=== PATIENT | male | born 1985 | race African-American/Black ===

== ENCOUNTER 2020-08-02 20:11 | Emergency (ER) | payer MEDICAID, SELFPAY ==
[2020-08-02 20:12] VITALS: BP 149/100; PULSE 90; RESP 18; TEMP 36.2; O2SAT 99; BMI 38.0
--- NOTE | 2020-08-02 20:43 | EKG12_ITS ---
Test Reason : CP Blood Pressure : / mmHG Vent. Rate : 071 BPM Atrial Rate : 071 BPM P-R Int : 146 ms QRS Dur : 092 ms QT Int : 382 ms P-R-T Axes : 050 038 037 degrees QTc Int : 415 ms Normal sinus rhythm with sinus arrhythmia Normal ECG Confirmed by KWAME CHONG, NATHANAEL ([id number]), social media editor CHEYENNE REYES ([id number]) on 08/05/2020 10:58:56 AM Referred By: CALE Confirmed By:NATHANAEL PUENTE MD
--- NOTE | 2020-08-02 20:44 | ED.DCSUM_ITS ---
History of Present Illness Chief Complaint: Chest Other Detail of Chief Complaint: Chest pain and spasms Informant: Patient Onset: Days - 2 days Timing: Intermittent Current Severity: Mild Maximum Severity: Moderate Narrative: Patient presents with central chest spasms that have been intermittent over the past 2 days. He states tonight it was worse that prompted him to come to the emergency room. He initially thought it was from smoking stating he will feel spasms in his chest when he smoking. He then states it seems to be worse when he drinks. He does have cardiac risk factors including hypertension, high cholesterol, and smoking. He denies previous cardiac work-up. - Past Medical History (1) Hypertension Status: Chronic (2) High cholesterol Status: Chronic Past Medical History - Allergies and Home Meds Allergies/Adverse Reactions: Allergies No Known Allergies Allergy (Verified 08/02/20 20:14) Primary Care Physician: NOT,DEFINED [NON-STAFF] - Smoking Status: Current every day smoker Review of Systems General: Denies: Chills, Fever Eyes: Denies: Visual changes - bilaterally ENT: Denies: Bilateral ear pain Cardiovascular: Reports: Chest pain Respiratory: Denies: Dyspnea, Cough Gastrointestinal: Denies: Abdominal pain Genitourinary: Denies: Dysuria Musculoskeletal: Denies: Swelling, Extremity Pain Skin: Denies: Rash Endocrine: Denies: Polyuria, Polydipsia Hematologic: Denies: Easy bruising Physical Exam Vital Signs/Narrative: Vital Signs Temp Pulse Resp BP Pulse Ox 08/02/20 20:12 97.2 F L 90 18 149/100 H 99 Inital Vital Signs reviewed: Yes General: Well nourished, Well developed Head: Normocephalic ENT: Moist mucous membranes Neck: Supple Cardiovascular: Regular rate, Regular rhythm Respiratory: No distress, CTA bilaterally, Chest nontender Abdomen: Soft, Nontender Skin: Normal color Neurological: Alert, Oriented x3 Psychological: Normal affect Diagnostic/Tx/Re-eval Chest X-Ray - ED: 1 View, Read by ED Physician, Normal, Heart, Lungs, Mediastinum 08/02/20 21:15 Chest 1 View (Portable) [RAD] Stat Laboratory Results 08/02/20 08/02/20 21:02 21:02 WBC 7.3 RBC 4.92 Hgb 14.8 Hct 44.8 MCV 91.1 MCH 30.1 MCHC 33.0 RDW Std Deviation 42.2 RDW Coeff of Cindy 12.6 Plt Count 203 MPV 11.6 Immature Gran % (Auto) 0.100 Neut % (Auto) 44.7 L Lymph % (Auto) 44.7 H [place] % (Auto) 8.2 Eos % (Auto) 1.8 Baso % (Auto) 0.5 Absolute Neuts (auto) 3.3 Absolute Lymphs (auto) 3.26 Nucleated RBC % 0 Sodium 139 Potassium 4.1 Chloride 105 Carbon Dioxide 30.0 Anion Gap 4 L BUN 14 Creatinine 1.40 H Estim Creat Clear Calc 86.44 Est GFR (MDRD) Af Amer 74 Est GFR (MDRD) Non-Af 61 BUN/Creatinine Ratio 10.0 Glucose 114 H Calcium 9.4 Troponin I < 0.015 - EKG Initial EKG Interpretation: Sinus Rhythm - Sinus at 71 with no acute ischemia. - Medical Decision Making Patient does report some increased burping. He states he has pain when he swallows and feels spasms in the center of his chest. I am concerned he is having reflux with esophageal spasm. He be placed on an antacid and referred to local PCP for follow-up. He is given return instructions. ED Disposition - Plan for ED Patient: Disposition: Home or Assisted Living Diagnosis: Atypical chest pain, GERD (gastroesophageal reflux disease) Instructions: ED Chest Pain Atypical Unkn Cause, Gastroesophageal Reflux Disease (GERD) Prescriptions: Omeprazole [Prilosec] 20 mg PO DAILY #30 cap Transmission Status: Pending to [facility] #[id number] Referrals: Delaney Mercer MD [STAFF PHYSICIAN] - 1-2 Weeks
[2020-08-02] MEDS: Aspirin 81 MG TAB.CHEW 324 MG PO (20:52)
[2020-08-02 21:11] LABS: Absolute Lymphocyte Count 3.26 X10^3/uL (0.83-4.51); Absolute Neutrophil Count 3.3 X10^3/uL (2.0-7.7); Basophil# 0.04 X10^3/uL; Basophil% 0.5 % (0-1); Eosinophil# 0.13 X10^3/uL; Eosinophils% 1.8 % (0-5); Hematocrit 44.8 % (40-54); Hemoglobin 14.8 g/dL (13.0-16.5); Lymphocyte # 3.26 X10^3/ul (4.0); Lymphocyte % 44.7 % (19-41); Mean Corpuscular Hgb 30.1 pg (27.0-32.0); Mean Corpuscular Volume 91.1 fL (80-94); Mean Platelet Vol. 11.6 fl (6.2-12.0); Monocyte% 8.2 % (0-10); NRBC Flagged by Analyzer 0 % (0-5); Neutrophil # 3.26 X10^3/uL (2.7-7.7); Neutrophil % 44.7 % (47-70); Platelet Count 203 K/mm3 (150-450); RBC Distribution Width CV 12.6 % (11.6-14.6); RBC Distribution Width SD 42.2 fl (35.1-43.9); Red Blood Count 4.92 M/mm3 (4.6-6.2); White Blood Count 7.3 K/mm3 (4.4-11.0)
--- NOTE | 2020-08-02 21:15 | RAD_ITS ---
STUDY: X-RAY CHEST REASON FOR EXAM: Male, 34 years old. chest pain while eating. pt states possible esophageal pain. TECHNIQUE: AP COMPARISON: None. FINDINGS: EKG leads project over the chest. The lungs are clear and expanded. There is no demonstrated pleural abnormality. Normal size heart. Normal mediastinum and devonte. Normal visualized pulmonary arteries. Normal visualized aortic arch and descending thoracic aorta. Normal visualized thoracic spine. Normal visualized ribs, clavicles, and shoulders. There is no demonstrated abnormality of the visualized soft tissue structures of the upper abdomen. RAD/Chest 1 View (Portable) IMPRESSION: Nonacute portable x-ray examination of the chest. Electronically Signed: Lavon Escobar MD ([place]oks) at 21:48 EST , Service support ,
[2020-08-02 21:35] LABS: Anion Gap 4 (5-15); BUN 14 mg/dL (7-18); Calcium,Total 9.4 mg/dL (8.5-10.1); Chloride 105 mmol/L (98-107); EST Glomerular Filtration Rate 61 mL/min (>60); Est Glom Filt Rate - Afr Amer 74 mL/min (>60); Estimated Creatinine Clearance 86.44 ml/min; Glucose 114 mg/dL (74-106); Potassium 4.1 mmol/L (3.5-5.1); Sodium Level 139 mmol/L (136-145)
[2020-08-02] MEDS: Pantoprazole Sodium 40 MG Tablet PO (22:04)
[2020-08-02 22:08] VITALS: BP 138/81; PULSE 81; RESP 16; O2SAT 96
== END 2020-08-02 22:09 | disposition home or self-care (01) ==
PROVIDERS: Emergency Provider Emergency Medicine
DX: R07.89 Other chest pain (principal); K21.9 Gastro-esophageal reflux disease without esophagitis; I10 Essential (primary) hypertension; E78.00 Pure hypercholesterolemia, unspecified; F17.200 Nicotine dependence, unspecified, uncomplicated
CPT/HCPCS: 71045; 80048; 84484; 85025; 93005; 99284; A4216

== ENCOUNTER 2021-02-26 18:40 | Emergency (ER) | payer MEDICAID, SELFPAY ==
[2021-02-26] VITALS (8 sets, daily range): BP systolic 118–148; BP diastolic 68–87; PULSE 76–92; RESP 13–23; TEMP 37.1–38.6; O2SAT 95–100; BMI 37.2
--- NOTE | 2021-02-26 19:49 | EKG12_ITS ---
Test Reason : WEAKNESS Blood Pressure : / mmHG Vent. Rate : 076 BPM Atrial Rate : 076 BPM P-R Int : 140 ms QRS Dur : 090 ms QT Int : 344 ms P-R-T Axes : 068 044 044 degrees QTc Int : 387 ms Normal sinus rhythm with sinus arrhythmia Normal ECG Confirmed by KWAME CHONG, NATHANAEL ([id number]), society editor CHEYENNE REYES ([id number]) on 02/27/2021 11:24:51 AM Referred By: VERONICA Confirmed By:NATHANAEL PUENTE MD
--- NOTE | 2021-02-26 19:51 | EX.ED.GUMALE ---
HPI History of Present Illness Chief Complaint: Male Pain/Injury Informant: patient Pain Onset: Days Context: Gradual Onset Timing: Continuous Current Severity: Mild Maximum Severity: Mild Related History Sexually: Active Unprotected Sex: Yes STD: Yes Bladder/Kidney Infection: Yes Enlarged Prostate: No Prostate Infection: No Prostate Cancer: No Narrative Narrative: 35-year-old diabetic male said he has been off his medications for a year after he moved from [place]. He has no primary care physician. States he feels generally weak has fever and chills and tired. He denies vomiting. He denies diarrhea. He denies any significant cough. He has not checked his blood sugar for very long period of time. Prior similar symptoms: Yes Recent Illness/Hospitalization: No PFSH PFSH Medical History Asthma Borderline diabetes Rhabdomyolysis UTI symptoms Home Medications albuterol sulfate [Proventil HFA] 1 inh INHALATION Q6H PRN #1 g 02/26/21 [Rx Last Taken Unknown] multivitamin 1 tab PO DAILY 02/26/21 [History Last Taken Unknown] Allergy/AdvReac Type Severity Reaction Status Date / Time No Known Allergies Allergy Verified 02/26/21 18:42 Surgical History Hx of hernia repair Hx of tonsillectomy Social History Smoking Status: Current every day smoker tobacco type: cigars ROS ROS ED ROS Narrative Patient states he has been feeling well. Review of Systems ROS Unobtainable: Denies due to encephalopathy Constitutional Constitutional ED: Reports chills, fever(s) and subjective Eyes Eyes: Denies change in vision ENT ENT ED: Denies ear pain or sore throat Cardiovascular Cardiovascular: Denies chest pain or palpitations Respiratory/Chest Respiratory/Chest: Denies cough or dyspnea Gastrointestinal Gastrointestinal: Denies abdominal pain, diarrhea, nausea or vomiting Genitourinary Genitourinary ED: Reports dysuria Musculoskeletal Musculoskeletal: Reports arthralgias and myalgias Integumentary Denies rash Neurologic Neurologic: Denies headache(s) Psychiatric Psychiatric: Denies depression Endocrine Endocrinology: Denies polyuria Hematologic/Lymphatic Hematologic/Lymphatic: Denies easy bruising Allergic/Immunologic Allergic/Immunologic ED: Denies urticaria EXAM Physical Exam Narrative Exam Narrative: Large male no acute distress he does have a low-grade fever of 100.1. He does not look septic or toxic. H EENT exam unremarkable. Moist with memories. TMs normal. Neck nontender no meningismus. No lymphadenopathy. Lungs clear to auscultation bilaterally. Heart regular rhythm rate about 90 no murmur. Abdomen soft nontender normal bowel sounds no peritoneal signs. exam uncircumcised male. No lesions. No abscesses. No fornier's gangrene. No discharge. Moving all 4 extremities. Calves nontender without edema. No petechiae or purpura. Back nontender. Neurologically is awake alert with no focal motor deficits. He does stand up out of bed to walk about the room. Const Vital Signs: 02/26/21 18:42 02/26/21 19:49 02/26/21 19:59 Temperature 100.1 F H Temperature Source Temporal Pulse Rate 92 90 Respiratory Rate 18 23 H Blood Pressure 148/85 H Blood Pressure Mean 106 Pulse Ox 100 98 100 Oxygen Delivery Method Room Air Room Air Room Air 02/26/21 20:13 02/26/21 21:04 02/26/21 21:05 Temperature 101.4 F H 101.4 F H Temperature Source Oral Oral Pulse Rate 80 90 Respiratory Rate 17 13 Blood Pressure 139/87 H 139/87 H Blood Pressure Mean 104 104 Pulse Ox 100 99 Oxygen Delivery Method Room Air Room Air 02/26/21 22:00 02/26/21 23:00 Temperature 98.9 F 98.8 F Temperature Source Oral Oral Pulse Rate 80 76 Respiratory Rate 16 18 Blood Pressure 125/79 H 118/68 Blood Pressure Mean 94 84 Pulse Ox 95 97 Oxygen Delivery Method Room Air Room Air Positive well nourished and well developed General Appearance ED: well developed HEENT Reports TM's clear and moist mucous membranes normocephalic and atraumatic; Negative for trauma or tenderness Tympanic Membrane ED: Yes TM's clear Eyes PERRL and EOMs intact bilaterally Neck no lymphadenopathy, supple and no JVD General: Negative for tenderness Resp normal respiratory effort and clear to auscultation bilaterally Auscultation: Negative for rales, rhonchi or wheezes Cardio regular rhythm and no murmurs Rate: tachycardic GI non-tender, non-distended and no masses Auscultation: normoactive bowel sounds and hyperactive bowel sounds Palpation: soft Rectal Exam: tenderness no CVA tenderness Narrative: External exam unremarkable. Uncircumcised. Nontender. No mass. No cellulitis. No foreign years gangrene. Bladder / Kidney Exam: No CVA tenderness Groin / Perineum Exam: Negative for edema or lesions Penis: normal penis and uncircumcised Meatus: meatus normal Scrotum: testes descended bilaterally; Negative for tenderness or erythema Testes: testicular lie normal Back/Spine no CVA tenderness General Back: Negative for CVA tenderness Neuro oriented x3, CN's II-XII intact bilaterally and moves all extremities Sensorium / Orientation: alert, oriented to person, oriented to place and oriented to time Psych mental status grossly normal Skin Lesions: no lesions Rashes: no rashes MDM MDM MDM Narrative Medical decision making narrative: 35-year-old diabetic male has not been caring for his diabetes or taking his meds for about a year since he moved to [place] from [place]. States I do not know to be diabetic. Also complaining of chills and body aches with a prior history of UTIs. Will undergo a septic work-up. Receive IV fluids. Patient developed a fever one 1.4 in emergency department. He was treated with Tylenol. Currently he is afebrile. Clinically looks very well at 1145. I did a complete repeat exam I find no sources of infection on the patient. Throat is unremarkable. Lungs are clear. Abdomen soft nontender. I do not find any rashes anywhere cellulitis. Patient will be discharged home outpatient follow-up. He requested I write him for his inhaler. He will follow up with a local primary care physician. Is a be treated with viral syndrome. Return if worse. Lab Data Attestation: I reviewed the patient's lab results. Lab results narrative: CBC shows a mild elevated white count 9.8. Normal hemoglobin 14. No bands. PT/INR PTT normal. UA is contaminated with 5-10 white cells and 5-10 squamous cells but no bacteria no nitrates. Electrolytes are normal. Creatinine is elevated. Glucose is 106. Covid test negative. Lactic acid normal. Labs: Laboratory Results - last 24 hr 02/26/21 02/26/21 02/26/21 19:04 20:10 20:10 WBC 11.8 H RBC 4.90 Hgb 14.7 Hct 45.2 MCV 92.2 MCH 30.0 MCHC 32.5 RDW Std Deviation 45.1 H RDW Coeff of Cindy 13.2 Plt Count 223 MPV 11.2 Immature Gran % (Auto) 0.300 Neut % (Auto) 71.4 H Lymph % (Auto) 17.9 L [place] % (Auto) 9.3 Eos % (Auto) 0.8 Baso % (Auto) 0.3 Absolute Neuts (auto) 8.4 H Absolute Lymphs (auto) 2.11 Nucleated RBC % 0 PT 12.6 INR 1.0 APTT 29.3 Sodium Potassium Chloride Carbon Dioxide Anion Gap BUN Creatinine Estim Creat Clear Calc Est GFR (MDRD) Af Amer Est GFR (MDRD) Non-Af BUN/Creatinine Ratio Glucose Lactic Acid Calcium Total Bilirubin AST ALT Alkaline Phosphatase Total Protein Albumin Globulin Albumin/Globulin Ratio Urine Color Yellow Urine Clarity Clear Urine pH 7.0 Ur Specific [place] 1.010 Urine Protein Negative Urine Glucose (UA) Normal Urine Ketones Negative Urine Occult Blood 10 H Urine Nitrite Negative Urine Bilirubin Negative Urine Urobilinogen 1 H Ur Leukocyte Esterase 25 H Urine RBC 0 SEEN Urine WBC 5-10 SEEN Ur Squamous Epith Cells 5-10 SEEN Urine Bacteria 0 SEEN Urine Mucus 0 SEEN 02/26/21 02/26/21 20:10 20:10 WBC RBC Hgb Hct MCV MCH MCHC RDW Std Deviation RDW Coeff of Cindy Plt Count MPV Immature Gran % (Auto) Neut % (Auto) Lymph % (Auto) [place] % (Auto) Eos % (Auto) Baso % (Auto) Absolute Neuts (auto) Absolute Lymphs (auto) Nucleated RBC % PT INR APTT Sodium 139 Potassium 3.9 Chloride 106 Carbon Dioxide 27.0 Anion Gap 6 BUN 9 Creatinine 1.48 H Estim Creat Clear Calc 81.00 Est GFR (MDRD) Af Amer 69 Est GFR (MDRD) Non-Af 57 L BUN/Creatinine Ratio 6.1 L Glucose 106 Lactic Acid 1.7 Calcium 8.2 L Total Bilirubin 0.70 AST 31 ALT 32 Alkaline Phosphatase 75 Total Protein 7.3 Albumin 3.5 Globulin 3.8 Albumin/Globulin Ratio 0.9 Urine Color Urine Clarity Urine pH Ur Specific [place] Urine Protein Urine Glucose (UA) Urine Ketones Urine Occult Blood Urine Nitrite Urine Bilirubin Urine Urobilinogen Ur Leukocyte Esterase Urine RBC Urine WBC Ur Squamous Epith Cells Urine Bacteria Urine Mucus Radiography Diagnostic Testing: Radiology Impression Chest X-Ray 02/26/21 20:03 IMPRESSION: No acute radiographic abnormalities. Electronically Signed: Martin Marquez MD at 21:06 EDT Tel , Service support , Portable chest x-ray 1 view interpreted by myself shows no acute abnormality. Normal cardiac silhouette mediastinum. No infiltrate. Rhythm Strip Rhythm Strip: Sinus Rhythm Rate: 76 Ectopy: None EKG Initial EKG: Interpretation: Sinus Rhythm and No Acute Injury Pattern Comments: Normal sinus rhythm rate of 76 no acute signs of OH nor ischemia nor dysrhythmia. Unchanged from prior EKG from 2019. Prior: Unchanged Discharge Plan Triage Chief Complaint: Male Pain/Injury Other Complaint: Weakness ED Provider: Roney Shipley Dx/Rx/DC Orders Clinical Impression: Viral infection Instructions: ED Viral Syndrome (Adult) Prescriptions: New albuterol sulfate [Proventil HFA] 90 mcg/actuation HFA aerosol inhaler 1 inh inhalation Q6H PRN (Reason: shortness of breath or wheezing) Qty: 1 RF: 1 No Action multivitamin Tablet 1 tab PO DAILY RF: 0 Primary Care Provider: Care Physician,No Primary Referrals: Tia Rizzo MD [STAFF PHYSICIAN] - As soon as possible Jani Bose MD [STAFF PHYSICIAN] - As soon as possible Care Physician,No Primary [Primary Care Provider] - Activity Restrictions/Additional Instructions: Your fever appears to be from a virus tonight. There are other test still pending if those come back positive we will notify you. Plenty of fluids and rest. Tylenol and Motrin for the fever. Follow-up with one of the local primary care physicians for your diabetes and to be reevaluated. Return if you are feeling worse. Disposition Disposition: Home, self care
[2021-02-26 19:58] LABS: Bacteria 0 SEEN /hpf (None Seen); Mucous, Urine 0 SEEN /hpf (<or=2+); Red Blood Cells-Urine 0 SEEN /hpf (0-5)
--- NOTE | 2021-02-26 20:03 | RAD_ITS ---
INDICATION: fever EXAMINATION/TECHNIQUE: X-RAY - XR Chest 1 View COMPARISON: 08/02/2020. FINDINGS: The lungs are clear. The cardiomediastinal silhouette is unremarkable. No pleural effusion or pneumothorax. No acute osseous abnormalities. RAD/Chest 1 View (Portable) IMPRESSION: No acute radiographic abnormalities. Electronically Signed: Martin Marquez MD at 21:06 EDT Tel , Service support ,
[2021-02-26] MEDS: 0.9% Normal Saline 1,000 ML 999 ML IV (20:06)
[2021-02-26 20:20] LABS: Color, Urine Yellow (Yellow); Glucose, Dipstick Normal (Normal); Ketone-Dipstick Negative (Negative); Leukocyte Esterase-Dipstick 25 /ul (Negative); Nitrite-Dipstick Negative (Negative); Occult Blood-Urine 10 /ul (Negative); Protein-Dipstick Negative (Negative); Urine Bilirubin Dipstick Negative (Negative); Urine Clarity Clear (Clear); Urine Urobilinogen 1 mg/dl (Normal)
[2021-02-26 20:21] LABS: Absolute Lymphocyte Count 2.11 X10^3/uL (0.83-4.51); Absolute Neutrophil Count 8.4 X10^3/uL (2.0-7.7); Basophil# 0.04 X10^3/uL; Basophil% 0.3 % (0-1); Eosinophil# 0.09 X10^3/uL; Eosinophils% 0.8 % (0-5); Hematocrit 45.2 % (40-54); Hemoglobin 14.7 g/dL (13.0-16.5); Lymphocyte # 2.11 X10^3/ul (0.83-4.51); Lymphocyte % 17.9 % (19-41); Mean Corp Hgb Conc 32.5 g/dL (32-36); Mean Corpuscular Volume 92.2 fL (80-94); Mean Platelet Vol. 11.2 fl (6.2-12.0); Monocyte# 1.09 X10^3/uL; Monocyte% 9.3 % (0-10); NRBC Flagged by Analyzer 0 % (0-5); Neutrophil # 8.39 X10^3/uL (2.7-7.7); Neutrophil % 71.4 % (47-70); Platelet Count 223 K/mm3 (150-450); RBC Distribution Width CV 13.2 % (11.6-14.6); RBC Distribution Width SD 45.1 fl (35.1-43.9); White Blood Count 11.8 K/mm3 (4.4-11.0)
[2021-02-26 20:32] LABS: Squamous Epithelial Cells - UA 5-10 SEEN /hpf (0-5); White Blood Cells 5-10 SEEN /hpf (0-5)
[2021-02-26 20:34] LABS: Prothrombin Time (Protime)PT. 12.6 SECONDS (11.7-14.9)
[2021-02-26 20:35] LABS: Partial Thromboplast Time 29.3 Seconds (24.1-36.2)
[2021-02-26 20:40] LABS: ALB/GLOB Ratio 0.9 RATIO (0.9-2.4); AST(SGOT) 31 U/L (15-37); Alanine Aminotransfer ALT/SGPT 32 U/L (16-61); Albumin, Serum 3.5 g/dL (3.2-5.0); Alkaline Phosphatase 75 U/L (45-117); Anion Gap 6 (5-15); BUN 9 mg/dL (7-18); BUN/Creat Ratio 6.1 RATIO (10-20); Calcium,Total 8.2 mg/dL (8.5-10.1); Chloride 106 mmol/L (98-107); Creatinine, Serum 1.48 mg/dL (0.70-1.30); EST Glomerular Filtration Rate 57 mL/min (>60); Est Glom Filt Rate - Afr Amer 69 mL/min (>60); Globulin 3.8 g/dL (2.2-4.2); Glucose 106 mg/dL (74-106); Potassium 3.9 mmol/L (3.5-5.1); Protein, Total 7.3 g/dL (6.4-8.2); Sodium Level 139 mmol/L (136-145)
[2021-02-26] MEDS: Acetaminophen 500 MG Tablet 1000 MG PO (21:02)
[2021-02-26 21:26] LABS: Lactic Acid 1.7 mmol/L (0.4-1.9)
== END 2021-02-27 00:04 | disposition home or self-care (01) ==
PROVIDERS: Emergency Provider Emergency Medicine
DX: B34.9 Viral infection, unspecified (principal); R50.9 Fever, unspecified; R53.1 Weakness; Z20.822 Contact with and (suspected) exposure to COVID-19; R73.03 Prediabetes; J45.909 Unspecified asthma, uncomplicated; F17.290 Nicotine dependence, other tobacco product, uncomplicated; Z79.899 Other long term (current) drug therapy
CPT/HCPCS: 71045; 80053; 81001; 83605; 85025; 85610; 85730; 87040; 87086; 87088; 87426; 93005; 96360; 96361; 99284; J7030; A4216

== ENCOUNTER 2021-04-27 08:44 | Emergency (ER) | payer MEDICAID, SELFPAY ==
[2021-04-27 08:45] VITALS: BP 146/105; PULSE 79; RESP 16; TEMP 36.2; O2SAT 98; BMI 35.9
--- NOTE | 2021-04-27 09:08 | RAD_ITS ---
STUDY: X-RAY CHEST REASON FOR EXAM: Male, 35 years old. Cough TECHNIQUE: PA and lateral views of the chest. COMPARISON: Comparison is made with prior examination dated 02/26/2021. FINDINGS: The lungs are clear and expanded. There is no demonstrated pleural abnormality. Normal size heart. Normal mediastinum and devonte. Normal visualized pulmonary arteries. Normal visualized aortic arch and descending thoracic aorta. Normal visualized thoracic spine. Normal visualized ribs, clavicles, and shoulders. There is no demonstrated abnormality of the visualized soft tissue structures of the upper abdomen. RAD/Chest PA and Lateral IMPRESSION: Normal x-ray examination of the chest. Electronically Signed: Satish Goins MD at 9:41 EDT , Service support ,
--- NOTE | 2021-04-27 09:26 | EX.ED.VIS.UR ---
HPI HPI - URI History of Present Illness Chief Complaint: Cough Informant: patient Onset/Context/Timing Onset: Weeks Context: Gradual Onset Timing: Continuous Current Severity: Mild Maximum Severity: Mild Associated Symptoms Associated Symptoms: Positive for Nonproductive cough; Negative for Nausea, Vomiting, Hemoptysis and Productive Cough Narrative Narrative: 35-year-old male states at least 2-week history of URI symptoms with decreased taste. Also has decreased energy. Chills. Denies fever. Denies vomiting. He has had some mild diarrhea. Of note patient has a history of asthma he does smoke. And is diabetic and currently not taking his oral medications. I did discuss all that with him and his need to take care of his own health. He wants to be tested for Covid and did not receive the vaccination. Prior similar symptoms: No Recent Illness/Hospitalization: No ROS ROS ED ROS Narrative Chills. Decreased energy. Nonproductive cough. Review of Systems ROS Unobtainable: Denies due to encephalopathy Constitutional Constitutional ED: Reports chills; Denies fever(s) Eyes Eyes: Denies change in vision ENT ENT ED: Denies ear pain or sore throat Cardiovascular Cardiovascular: Denies chest pain Respiratory/Chest Respiratory/Chest: Reports cough; Denies dyspnea or sputum Gastrointestinal Gastrointestinal: Denies abdominal pain, nausea or vomiting Genitourinary Genitourinary ED: Denies dysuria or hematuria Musculoskeletal Musculoskeletal: Denies arthralgias or myalgias Integumentary Denies abscess or rash Neurologic Neurologic: Denies headache(s) Psychiatric Psychiatric: Denies depression Endocrine Endocrinology: Denies polyuria Hematologic/Lymphatic Hematologic/Lymphatic: Denies easy bruising Allergic/Immunologic Allergic/Immunologic ED: Denies urticaria PFSH PFSH Medical History Asthma Borderline diabetes Rhabdomyolysis UTI symptoms Home Medications albuterol sulfate [Proventil HFA] 1 inh INHALATION Q6H PRN #1 g 02/26/21 [Rx Last Taken Unknown] multivitamin 1 tab PO DAILY 02/26/21 [History Last Taken Unknown] Allergy/AdvReac Type Severity Reaction Status Date / Time No Known Allergies Allergy Verified 02/26/21 18:42 Surgical History Hx of hernia repair Hx of tonsillectomy Social History Smoking Status: Current every day smoker tobacco type: cigars EXAM Physical Exam Narrative Exam Narrative: Well-appearing 35-year-old male. No distress. Vital signs stable afebrile pulse ox 98% on room air. Lungs are clear equal symmetrical bilaterally. Heart regular rhythm rate about 80. Abdomen soft nontender. Moving all 4 extremities. Nontender no edema. Neurologically awake and alert. Const Vital Signs: 04/27/21 08:45 04/27/21 09:24 Temperature 97.1 F L Temperature Source Temporal Pulse Rate 79 Respiratory Rate 16 Respiratory Effort Short of Breath Respiratory Depth Normal Respiratory Pattern Normal Blood Pressure 146/105 H Blood Pressure Mean 118 Pulse Ox 98 Oxygen Delivery Method Room Air Positive well nourished, well developed and obese; Negative for cachectic or contractures General Appearance ED: well developed and NAD; Negative for cachectic, contractures, cyanotic or diaphoretic Nutritional Appearance: obese; Negative for cachectic HEENT normocephalic and atraumatic External Ear: external ears normal Eyes PERRL and EOMs intact bilaterally Neck no lymphadenopathy, supple, no meningeal signs and no JVD General: Negative for anterior neck swelling or lymphadenopathy Resp normal respiratory effort and clear to auscultation bilaterally Auscultation: Negative for rales, rhonchi or wheezes Cardio S1 normal heart sound, S2 normal heart sound and no murmurs Rate: regular rate Rhythm: regular rhythm GI non-tender, non-distended and no masses Auscultation: normoactive bowel sounds Palpation: soft; Negative for tender or guarding Back/Spine no CVA tenderness and normal ROM General Back: Negative for CVA tenderness Cervical Spine: Negative for cervical spine tenderness Extremity normal to inspection and full ROM General Extremety ED: Negative for cyanosis or tenderness General Extremity: Negative for cyanosis Neuro oriented x3 Sensorium / Orientation: alert, oriented to person, oriented to place and oriented to time Psych mental status grossly normal Attitude: No agitated Mood & Affect: Negative for depressed, anxious or tearful Skin Lesions: no lesions Rashes: no rashes MDM MDM MDM Narrative Medical decision making narrative: 35-year-old male URI symptoms. Will be tested for Covid. Obtain a chest x-ray. Also due to him not watching his blood sugar taking his diabetic medications will get a blood sugar on him. Repeat exam patient is doing well at 10:15 AM. He will be discharged home. Lab Data Attestation: I reviewed the patient's lab results. Lab results narrative: Rapid Covid test negative. Blood sugar was 122. Labs: Laboratory Results - last 24 hr 04/27/21 10:19 POC Glucose 122 H Radiography Diagnostic Testing: Radiology Impression Chest X-Ray 04/27/21 09:08 IMPRESSION: Normal x-ray examination of the chest. Electronically Signed: Satish Goins MD at 9:41 EDT , Service support , Chest x-ray AP lateral views interpreted by myself and radiologist both agree no acute abnormality. Normal cardiac silhouette. No pneumonia. Discharge Plan Triage Chief Complaint: Cough ED Provider: Roney Shipley Dx/Rx/DC Orders Clinical Impression: Viral infection Instructions: ED URI, Viral, No Abx (Adult) Prescriptions: No Action multivitamin Tablet 1 tab PO DAILY RF: 0 albuterol sulfate [Proventil HFA] 90 mcg/actuation HFA aerosol inhaler 1 inh inhalation Q6H PRN (Reason: shortness of breath or wheezing) Qty: 1 RF: 1 Primary Care Provider: Care Physician,No Primary Referrals: Jani Bose MD [STAFF PHYSICIAN] - 1 Week if not improving Care Physician,No Primary [Primary Care Provider] - Activity Restrictions/Additional Instructions: Your history and exam are consistent with a viral syndrome that should progressively improve. Your Covid test and chest x-ray were negative. You must stop smoking with your asthma and diabetes history. You must restart taking your diabetic meds and chest checking your blood sugars at minimum twice a day. Disposition Disposition: Home, Self Care
[2021-04-27 10:25] LABS: Bedside Glucose 122 mg/dL (70-110)
--- NOTE | 2021-04-27 10:56 | ED.RN ---
PT EDUCATED ON D/C INSTRUCTIONS FOR URI VIRAL AND IMPORTANCE OF FOLLOW UP. ENCOURAGED TO CALL PCP TODAY FOR AN APPOINTMENT FOR FOLLOW UP. PT TOLD TO CHECK BG 2X DAILY. PT REPORTS HE IS OUT OF HIS INHALER AND GLUCOMETER. DR. SCOTT INFORMED, REPORTS HE WILL WRITE PRESCRIPTIONS FOR PT. PT EDUCATED TO QUIT SMOKING. DENIES ANY FURTHER QUESTIONS AT THIS TIME.
[2021-04-27 10:58] VITALS: BP 160/113; PULSE 65; RESP 18; O2SAT 99
== END 2021-04-27 11:19 | disposition home or self-care (01) ==
PROVIDERS: Emergency Provider Emergency Medicine
DX: B34.9 Viral infection, unspecified (principal); R05 Cough; R19.7 Diarrhea, unspecified; Z20.822 Contact with and (suspected) exposure to COVID-19; J45.909 Unspecified asthma, uncomplicated; E11.9 Type 2 diabetes mellitus without complications; E66.9 Obesity, unspecified; F17.290 Nicotine dependence, other tobacco product, uncomplicated; Z79.899 Other long term (current) drug therapy
CPT/HCPCS: 71046; 82962; 87426; 99282

== ENCOUNTER 2022-02-23 15:54 | Emergency (ER) | payer MEDICAID, SELFPAY ==
[2022-02-23 15:56] VITALS: BP 97/73; PULSE 72; RESP 16; TEMP 36.2; O2SAT 98; BMI 35.3
--- NOTE | 2022-02-23 16:19 | EKG12_ITS ---
Test Reason : CP Blood Pressure : / mmHG Vent. Rate : 101 BPM Atrial Rate : 101 BPM P-R Int : 138 ms QRS Dur : 100 ms QT Int : 334 ms P-R-T Axes : 073 046 102 degrees QTc Int : 433 ms Sinus tachycardia Nonspecific T wave abnormality Abnormal ECG Confirmed by NATHANAEL PUENTE MD ([id number]), editorial clerk CHEYENNE REYES ([id number]) on 02/26/2022 12:48:02 PM Referred By: VERONICA Confirmed By:NATHANAEL PUENTE MD
--- NOTE | 2022-02-23 17:08 | EDS_ITS ---
HPI History of Present Illness Chief Complaint: General Illness Informant: patient and family Onset/Context/Timing Context: Gradual Onset Timing: Continuous Current Severity: Mild Maximum Severity: Moderate Narrative Narrative: 36-year-old male history of diabetes and prior rhabdomyolysis. 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 Today he was out in the heat moving. Said he felt like he got overheated. Started sweating profusely and having diffuse body cramps. Today got lightheaded. He feels much better now that he is inside in the air conditioning and drinking cold fluids. Previously denies being ill. He did have nausea and vomiting today associated with his symptoms. Prior similar symptoms: No Recent Illness/Hospitalization: No PFSH PFSH Medical History Asthma Borderline diabetes Rhabdomyolysis UTI symptoms Home Medications albuterol sulfate 90 mcg/actuation aerosol inhaler (Proventil HFA) 1 inh inh alation Q6H PRN shortness of breath or wheezing #1 g 02/26/21 [Rx Last Taken Unknown] multivitamin 1 tab PO DAILY 02/26/21 [History Last Taken Unknown] albuterol sulfate 90 mcg/actuation aerosol inhaler (ProAir HFA) 1 inh inhalation Q6H PRN shortness of breath or wheezing #1 g 04/27/21 [Rx Last Taken Unknown] albuterol sulfate 90 mcg/actuation aerosol inhaler (Proventil HFA) 2 puff inhalation Q6H PRN shortness of breath or wheezing #1 g 02/23/22 [Rx Last Taken Unknown] Allergy/AdvReac Type Severity Reaction Status Date / Time No Known Allergies Allergy Verified 02/26/21 18:42 Surgical History Hx of hernia repair Hx of tonsillectomy Social History Smoking Status: Current every day smoker tobacco type: cigars ROS ROS ED ROS Narrative Cramping. Nausea vomiting. Review of Systems ROS Unobtainable: Denies due to encephalopathy Constitutional Constitutional ED: Denies chills Eyes Eyes: Denies blurry vision ENT ENT ED: Denies ear pain Cardiovascular Cardiovascular: Denies chest pain Respiratory/Chest Respiratory/Chest: Denies cough or dyspnea Gastrointestinal Gastrointestinal: Reports nausea and vomiting; Denies abdominal pain, constipation, diarrhea or melena Genitourinary Genitourinary ED: Denies dysuria Musculoskeletal Musculoskeletal: Denies arthralgias Integumentary Denies abscess Neurologic Neurologic: Denies headache(s) Psychiatric Psychiatric: Denies anxiety Endocrine Endocrinology: Denies cold intolerance Allergic/Immunologic Allergic/Immunologic ED: Denies mouth swelling EXAM Physical Exam Narrative Exam Narrative: Well-appearing 36-year-old male no acute distress vital signs stable afebrile. Initial blood pressure is hypotension to 97/73. Pulse ox 90% on room air no signs hypoxia. Clinically looks well. H EENT exam unremarkable. Moist remembers. He is drinking ice water currently. Neck nontender. Lungs clear to auscultation bilaterally. Heart regular rhythm no murmur. Abdomen soft nontender. Moving all 4 extremities. Neurologically is awake and alert with no focal motor deficits. Const Vital Signs: 02/23/22 15:56 02/23/22 16:50 02/23/22 19:50 Temperature 97.1 F L Temperature Source Temporal Pulse Rate 72 67 Respiratory Rate 16 18 Respiratory Effort Normal Non-Labored Respiratory Pattern Normal Blood Pressure 97/73 127/75 H Blood Pressure Mean 81 92 Pulse Ox 98 100 Oxygen Delivery Method Room Air Room Air 02/23/22 20:50 Temperature Temperature Source Pulse Rate 73 Respiratory Rate 16 Respiratory Effort Respiratory Pattern Blood Pressure Blood Pressure Mean Pulse Ox 100 Oxygen Delivery Method Room Air Positive well nourished, well developed and obese; Negative for cachectic, contractures or unkempt General Appearance ED: well developed; Negative for unkempt, cachectic, contractures or pallor Nutritional Appearance: obese; Negative for cachectic HEENT Reports moist mucous membranes; Denies dry mucous membranes Negative for trauma or tenderness Mouth ED: No dry mucous membranes Mouth: No dry mucous membranes Eyes PERRL and EOMs intact bilaterally General Eye ED: Negative for pale conjunctiva or scleral icterus Neck no lymphadenopathy, supple and no JVD General: Negative for tenderness Chest Wall inspection of chest normal and palpation of chest normal Resp normal respiratory effort and clear to auscultation bilaterally Effort and Inspection: Negative for retractions Auscultation: Negative for rales, rhonchi or wheezes Cardio regular rate, regular rhythm, S1 normal heart sound, S2 normal heart sound and no murmurs GI normal to inspection, nondistended, normoactive bowel sounds, non-tender, non- distended and no masses; Negative for hepatosplenomegaly Inspection: Negative for abdominal distention Auscultation: normoactive bowel sounds Palpation: soft; Negative for tender, guarding, splenomegaly or mass Back/Spine no CVA tenderness Extremity normal to inspection General Extremety ED: Negative for edema or tenderness General Extremity: Negative for edema Neuro oriented x3 Sensorium / Orientation: alert; Negative for orientation impaired, lethargic or stuporous Motor Exam: strength 5/5 throughout Psych mental status grossly normal Appearance: Negative for unkempt Skin no rashes or lesions noted and no wounds General Skin Exam: Negative for jaundice or pallor Rashes: No rashes noted Trauma: Negative for abrasion Wounds: Negative for wounds noted MDM MDM MDM Narrative Medical decision making narrative: Patient is-year-old diabetic male had heat exhaustion today clinically is coming along and looks improved. To be treated with IV fluids. Able to do screening labs because of his history of prior rhabdomyolysis even though I do not think that is currently his issue. Repeat exam patient was doing much better after his first liter of fluid. He was given a second liter of fluid due to his creatinine increasing to 2.55 from prior creatinines around 1.5. After second liter of fluid that was repeated. His creatinine is improving at 1.96. Patient is doing well at 10:30 PM. He will be discharged to home. Fluids and rest. Get his kidney function checked again this coming week. Fluids and rest. Lab Data Attestation: I reviewed the patient's lab results. Lab results narrative: CBC White count 8. H&H is 16 and 49. Platelets 255. Unremarkable. Electrolytes gap is 7 BUN of 18 creatinine 2.55. Glucose 105. Total CPK is 642. Troponin is 19. Second chemistry panel after second liter of fluid improved with his creatinine going from 2.55-1.96. He will be discharged home. Labs: Laboratory Results - last 24 hr 02/23/22 02/23/22 02/23/22 17:20 17:20 19:37 WBC 8.4 RBC 5.48 Hgb 16.4 Hct 49.0 MCV 89.4 MCH 29.9 MCHC 33.5 RDW Std Deviation 41.0 RDW Coeff of Cindy 12.4 Plt Count 255 MPV 10.8 Immature Gran % (Auto) 0.400 Neut % (Auto) 56.0 Lymph % (Auto) 34.9 [place] % (Auto) 7.1 Eos % (Auto) 1.2 Baso % (Auto) 0.4 Absolute Neuts (auto) 4.7 Absolute Lymphs (auto) 2.94 Nucleated RBC % 0 Sodium 139 Cancelled Potassium 4.0 Cancelled Chloride 107 Cancelled Carbon Dioxide 25.0 Cancelled Anion Gap 7 Cancelled BUN 18 Cancelled Creatinine 2.55 H Cancelled Estim Creat Clear Calc 46.56 Cancelled Est GFR (MDRD) Af Amer 37 L Cancelled Est GFR (MDRD) Non-Af 30 L Cancelled BUN/Creatinine Ratio 7.1 L Cancelled Glucose 105 Cancelled Calcium 9.5 Cancelled Total Creatine Kinase 642 H Troponin I High Sens 19 02/23/22 20:53 WBC RBC Hgb Hct MCV MCH MCHC RDW Std Deviation RDW Coeff of Cindy Plt Count MPV Immature Gran % (Auto) Neut % (Auto) Lymph % (Auto) [place] % (Auto) Eos % (Auto) Baso % (Auto) Absolute Neuts (auto) Absolute Lymphs (auto) Nucleated RBC % Sodium 140 Potassium 3.8 Chloride 108 H Carbon Dioxide 28.0 Anion Gap 4 L BUN 17 Creatinine 1.96 H Estim Creat Clear Calc 60.58 Est GFR (MDRD) Af Amer 50 L Est GFR (MDRD) Non-Af 41 L BUN/Creatinine Ratio 8.7 L Glucose 89 Calcium 8.6 Total Creatine Kinase Troponin I High Sens Rhythm Strip Rhythm Strip: Sinus Tach Rate: 101 Ectopy: None EKG Initial EKG: Interpretation: No Acute Injury Pattern and Sinus Tachycardia Comments: Sinus tachycardia rate of 101 no acute signs of ischemia. Discharge Plan Triage Chief Complaint: General Illness ED Provider: Roney Shipley Dx/Rx/DC Orders Clinical Impression: Heat exhaustion, Acute dehydration, Acute kidney injury, History of diabetes mellitus Instructions: ED Dehydration (Adult), ED Heat Exhaustion Prescriptions: New albuterol sulfate [Proventil HFA] 90 mcg/actuation HFA aerosol inhaler 2 puff inhalation Q6H PRN (Reason: shortness of breath or wheezing) Qty: 1 1RF No Action multivitamin Tablet 1 tab PO DAILY albuterol sulfate [Proventil HFA] 90 mcg/actuation HFA aerosol inhaler 1 inh inhalation Q6H PRN (Reason: shortness of breath or wheezing) Qty: 1 1RF albuterol sulfate [ProAir HFA] 90 mcg/actuation HFA aerosol inhaler 1 inh inhalation Q6H PRN (Reason: shortness of breath or wheezing) Qty: 1 0RF Primary Care Provider: Care Physician,No Primary Referrals: Tia Rizzo MD [STAFF PHYSICIAN] - As soon as possible Care Physician,No Primary [Primary Care Provider] - Activity Restrictions/Additional Instructions: Today you have a heat exhaustion and dehydration causing your kidney function to worsen. After second liter of fluid and fluid. Today's creatinine level was 2.55 and got better at 1.96 after your IV fluids. This needs to be rechecked in the next week or so to ensure its improving. Take it easy this weekend. Plenty of fluids and rest. Follow-up with local physician for further evaluation. You definitely need a primary care physician. Disposition Disposition: Home, Self Care
[2022-02-23] MEDS: 0.9% Normal Saline 1,000 ML 1000 ML IV (17:15)
[2022-02-23 17:30] LABS: Absolute Lymphocyte Count 2.94 X10^3/uL (0.83-4.51); Absolute Neutrophil Count 4.7 X10^3/uL (2.0-7.7); Basophil# 0.03 X10^3/uL; Basophil% 0.4 % (0-1); Eosinophils% 1.2 % (0-5); Hemoglobin 16.4 g/dL (13.0-16.5); Lymphocyte # 2.94 X10^3/ul (0.83-4.51); Lymphocyte % 34.9 % (19-41); Mean Corp Hgb Conc 33.5 g/dL (32-36); Mean Corpuscular Hgb 29.9 pg (27.0-32.0); Mean Corpuscular Volume 89.4 fL (80-94); Mean Platelet Vol. 10.8 fl (6.2-12.0); Monocyte% 7.1 % (0-10); NRBC Flagged by Analyzer 0 % (0-5); Neutrophil # 4.73 X10^3/uL (2.7-7.7); Platelet Count 255 K/mm3 (150-450); RBC Distribution Width CV 12.4 % (11.6-14.6); Red Blood Count 5.48 M/mm3 (4.6-6.2); White Blood Count 8.4 K/mm3 (4.4-11.0)
[2022-02-23 17:51] LABS: Anion Gap 7 (5-15); BUN 18 mg/dL (7-18); BUN/Creat Ratio 7.1 RATIO (10-20); CPK Total, Creatine Kinase 642 U/L (39-308); Calcium,Total 9.5 mg/dL (8.5-10.1); Chloride 107 mmol/L (98-107); Creatinine, Serum 2.55 mg/dL (0.70-1.30); EST Glomerular Filtration Rate 30 mL/min (>60); Est Glom Filt Rate - Afr Amer 37 mL/min (>60); Estimated Creatinine Clearance 46.56 ml/min; Glucose 105 mg/dL (74-106); Sodium Level 139 mmol/L (136-145); Troponin-I HS 19 pg/mL (3.0-78.0)
[2022-02-23] MEDS: 0.9% Normal Saline 1,000 ML 999 ML IV (19:48)
[2022-02-23 19:50] VITALS: BP 127/75; PULSE 67; RESP 18; O2SAT 100
[2022-02-23 20:50] VITALS: PULSE 73; RESP 16; O2SAT 100
[2022-02-23 21:20] LABS: Anion Gap 4 (5-15); BUN 17 mg/dL (7-18); BUN/Creat Ratio 8.7 RATIO (10-20); Calcium,Total 8.6 mg/dL (8.5-10.1); Chloride 108 mmol/L (98-107); Creatinine, Serum 1.96 mg/dL (0.70-1.30); EST Glomerular Filtration Rate 41 mL/min (>60); Est Glom Filt Rate - Afr Amer 50 mL/min (>60); Estimated Creatinine Clearance 60.58 ml/min; Glucose 89 mg/dL (74-106); Potassium 3.8 mmol/L (3.5-5.1); Sodium Level 140 mmol/L (136-145)
[2022-02-23 22:44] VITALS: PULSE 73; RESP 16; O2SAT 100
== END 2022-02-23 22:46 | disposition home or self-care (01) ==
PROVIDERS: Emergency Provider Emergency Medicine; Visit Provider Emergency Medicine
DX: T67.5XXA Heat exhaustion, unspecified, initial encounter (principal); N17.9 Acute kidney failure, unspecified; E11.9 Type 2 diabetes mellitus without complications; X30.XXXA Exposure to excessive natural heat, initial encounter; Y93.89 Activity, other specified; E86.0 Dehydration; I95.9 Hypotension, unspecified; R11.2 Nausea with vomiting, unspecified; J45.909 Unspecified asthma, uncomplicated; E66.9 Obesity, unspecified; F17.290 Nicotine dependence, other tobacco product, uncomplicated; Z79.899 Other long term (current) drug therapy
CPT/HCPCS: 80048; 82550; 84484; 85025; 93005; 96360; 96361; 99283; J7030; A4216

== ENCOUNTER 2022-03-09 17:29 | Emergency (ER) | payer MEDICAID, SELFPAY ==
[2022-03-09 17:30] VITALS: BP 151/97; PULSE 82; RESP 16; TEMP 36.7; O2SAT 98; BMI 36.1
[2022-03-09 17:45] LABS: Bacteria 0 SEEN /hpf (None Seen); Mucous, Urine 0 SEEN /hpf (<or=2+); Red Blood Cells-Urine 0 SEEN /hpf (0-5)
[2022-03-09 18:23] LABS: Color, Urine Yellow (Yellow); Glucose, Dipstick Normal (Normal); Ketone-Dipstick Negative (Negative); Leukocyte Esterase-Dipstick 25 /ul (Negative); Nitrite-Dipstick Negative (Negative); Occult Blood-Urine 25 /ul (Negative); Protein-Dipstick 15 mg/dl (Negative); Specific Gravity, Urine 1.025 (1.002-1.030); Urine Bilirubin Dipstick Negative (Negative); Urine Clarity Clear (Clear); Urine Urobilinogen Normal (Normal)
[2022-03-09 18:38] LABS: Squamous Epithelial Cells - UA 0-5 SEEN /hpf (0-5); Trichomonas 0-5 SEEN /hpf (None Seen); White Blood Cells 0-5 SEEN /hpf (0-5)
--- NOTE | 2022-03-09 18:42 | ED.RN ---
pt eports he will keep his appt with his pcp on saturday because he does not want to wait any longer. lwbs at 1840.
== END 2022-03-09 18:42 | disposition left against medical advice (07) ==
LOC: ED 18:42
DX: R10.9 Unspecified abdominal pain (principal); Z53.21 Procedure and treatment not carried out due to patient leaving prior to being seen by health care provider
CPT/HCPCS: 81001

== ENCOUNTER 2022-03-10 22:34 | Emergency (ER) | payer MEDICAID, SELFPAY ==
[2022-03-10 22:35] VITALS: BP 145/121; PULSE 84; RESP 15; TEMP 36; O2SAT 99; BMI 34.7
[2022-03-10 22:37] VITALS: BP 145/121; PULSE 84; RESP 15; TEMP 36; O2SAT 99
--- NOTE | 2022-03-10 22:55 | EDS_ITS ---
HPI History of Present Illness Chief Complaint: Back Detail of Chief Complaint: multiple complaints Informant: patient Onset/Context/Timing Onset: Weeks (2-3; although has been occuring for years off and on) Context: Gradual Onset Timing: Intermittent (some days I'm fine, others I don't feel well) Current Severity: Mild Maximum Severity: Moderate Narrative Narrative: Patient presents with multiple complaints, he is concerned about abnormal kidney numbers when he was here 2 weeks ago, he is still having intermittent symptoms although he has not been able to follow-up yet, and he wants to make sure he is okay/safe to do a 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 He states he sometimes gets tingling in both hands/fingers, when he is working in the heat gets dehydrated his muscles lock up especially in his calves and thighs, today he has been short of breath and having some chest tightness with his asthma feeling like it is worse. He tries to drink a lot of fluids, but sometimes he is well-hydrated and he still gets the muscles locking up and feeling poorly. He works outside and does a lot of heavy lifting when he works. He states that today he has been having some pain in the middle of his low back without radiation, bowel incontinence, bladder dysfunction. Hurts somewhat more to move around, this is not severe but he was concerned about his kidney function and the fact that this hurts in his low back where his kidneys are. 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 Right now the only symptom that he has is the pain in his low back. [facility] Medical History Asthma Borderline diabetes Rhabdomyolysis UTI symptoms Home Medications albuterol sulfate 90 mcg/actuation aerosol inhaler (Ventolin HFA) 1 - 2 puff inhalation Q4H PRN PRN Wheezing ##1 03/11/22 [Rx Last Taken Unknown] lisinopril 10 mg tablet 10 mg PO DAILY #30 tabs 03/11/22 [Rx Last Taken Unknown] Allergy/AdvReac Type Severity Reaction Status Date / Time No Known Allergies Allergy Verified 03/10/22 22:37 Surgical History Hx of hernia repair Hx of tonsillectomy Social History Smoking Status: Current every day smoker tobacco type: cigarettes and cigars ROS ROS ED Constitutional Constitutional ED: Denies chills or fever(s) Eyes Eyes: Denies change in vision or diplopia ENT ENT ED: Denies rhinorrhea or sore throat Cardiovascular Cardiovascular: Reports chest pain; Denies palpitations Respiratory/Chest Respiratory/Chest: Reports cough and dyspnea Gastrointestinal Gastrointestinal: Denies abdominal pain, diarrhea, nausea or vomiting Genitourinary Genitourinary ED: Denies dysuria or hematuria Musculoskeletal Musculoskeletal: Reports back pain; Denies neck pain Integumentary Denies abscess or rash Neurologic Neurologic: Reports paresthesias; Denies headache(s) or weakness Psychiatric Psychiatric: Denies anxiety or suicidal thoughts EXAM Physical Exam Const Vital Signs: 03/10/22 22:35 03/10/22 22:37 03/10/22 23:39 Temperature 96.8 F L 96.8 F L Temperature Source Temporal Temporal Pulse Rate 84 84 Respiratory Rate 15 15 Respiratory Effort Short of Breath Respiratory Pattern Blood Pressure 145/121 H 145/121 H Blood Pressure Mean 129 129 Pulse Ox 99 99 Oxygen Delivery Method Room Air Room Air 03/10/22 23:16 Temperature Temperature Source Pulse Rate 80 Respiratory Rate 16 Respiratory Effort Respiratory Pattern Normal Blood Pressure Blood Pressure Mean Pulse Ox Oxygen Delivery Method Positive well nourished and well developed General Appearance ED: well developed and NAD HEENT Reports moist mucous membranes normocephalic and atraumatic Eyes PERRL and EOMs intact bilaterally Neck full ROM and supple Resp normal respiratory effort and clear to auscultation bilaterally Cardio regular rate, regular rhythm and no murmurs Rate: Negative for bradycardia or tachycardic GI non-tender and non-distended Auscultation: normoactive bowel sounds Palpation: soft Back/Spine no CVA tenderness Back/Spine Narrative: Negative straight leg raises bilateral lower extremities General Back: other FROM Lumbar Spine / Lower Back: Negative for lumbar spinal tenderness Extremity normal to inspection General Extremety ED: Negative for edema, pulses abnormal or tenderness General Extremity: Negative for edema or pulses abnormal Neuro oriented x3, CN's II-XII intact bilaterally and no sensory deficits noted Neuro Narrative: Normal reflexes. No clonus. Sensorium / Orientation: awake and alert Motor Exam: strength 5/5 throughout Psych mental status grossly normal Attitude: No agitated Mood & Affect: anxious Skin no rashes or lesions noted and no wounds MDM MDM MDM Narrative Medical decision making narrative: Metabolic work-up is reassuring, his kidney function is improved, he has more proteinuria than he had before though, he does not have symptoms of infection but he does have some pyuria, I sent that for culture, but I am not treating him since he does not have any symptoms except for some urinary frequency which may or may not be related to increased fluid intake and/or transient hyperglycemia which he does not have right now with his blood sugar at 123. States he has a history of borderline diabetes, but he has not seen anybody for it in over a year, last time he was checked he was not put on any medications for it, but he was on something for blood pressure he thinks lisinopril, they took him self off of it over a year ago. I advised him that it is important that he stay on that, his pressures are high here, 145/121, so I will prescribe him lisinopril 10 mg and refer him to the next doctor on the unassigned list. With regards to his chest discomfort he is better after nebulizer treatment, chest x-ray negative, EKG normal, troponin negative, likely asthma will prescribe him an MDI no think he needs steroids right now. Lab Data Attestation: I reviewed the patient's lab results. Labs: Laboratory Results - last 24 hr 03/10/22 03/10/22 03/10/22 23:30 23:30 23:35 WBC 6.6 RBC 5.33 Hgb 16.0 Hct 46.2 MCV 86.7 MCH 30.0 MCHC 34.6 RDW Std Deviation 39.7 RDW Coeff of Cindy 12.6 Plt Count 208 MPV 10.8 Immature Gran % (Auto) 0.200 Neut % (Auto) 36.1 L Lymph % (Auto) 51.1 H [place] % (Auto) 8.2 Eos % (Auto) 3.6 Baso % (Auto) 0.8 Absolute Neuts (auto) 2.4 Absolute Lymphs (auto) 3.37 Nucleated RBC % 0 Sodium 139 Potassium 4.4 Chloride 106 Carbon Dioxide 27.0 Anion Gap 6 BUN 17 Creatinine 1.45 H Estim Creat Clear Calc 81.89 Est GFR (MDRD) Af Amer 71 Est GFR (MDRD) Non-Af 58 L BUN/Creatinine Ratio 11.7 Glucose 123 H Calcium 9.1 Total Creatine Kinase 571 H Troponin I High Sens 8 Urine Color Yellow Urine Clarity Clear Urine pH 6.0 Ur Specific [place] 1.020 Urine Protein 30 H Urine Glucose (UA) Normal Urine Ketones Negative Urine Occult Blood 10 H Urine Nitrite Negative Urine Bilirubin Negative Urine Urobilinogen 1 H Ur Leukocyte Esterase 100 H Urine RBC 0-5 SEEN Urine WBC 10-25 SEEN Ur Squamous Epith Cells 0-5 SEEN Urine Bacteria RARE Urine Mucus 1+ Radiography Chest X-Ray - ED: 2 View, Read by ED Physician, No Acute Disease and No Infiltrates Diagnostic Testing: Clinical Impression(s) from Imaging Studies Chest X-Ray 03/10/22 22:55 IMPRESSION: Normal x-ray examination of the chest. Electronically Signed: Chivo Catalan MD at 0:11 EDT , Rhythm Strip Rhythm Strip: Sinus Rhythm Rate: 70 Ectopy: None EKG Initial EKG: Attestation: I personally reviewed and interpreted this EKG as follows: Interpretation: Sinus Rhythm and No Acute Injury Pattern Comments: normal EKG Discharge Plan Triage Chief Complaint: Back ED Provider: Bay Beasley Dx/Rx/DC Orders Clinical Impression: Hypertension, Paresthesias, CRI (chronic renal insufficiency), Muscle cramps, Proteinuria, Acute asthma exacerbation, Chest pain Instructions: Hypertension and Kidney Disease Prescriptions: New albuterol sulfate [Ventolin HFA] 1 INHALER inhaler 1 - 2 puff inhalation Q4H PRN PRN (Reason: Wheezing) Qty: 1 0RF lisinopril 10 mg tablet 10 mg PO DAILY Qty: 30 0RF Primary Care Provider: Care Physician,No Primary Referrals: Emmett Conde MD [STAFF PHYSICIAN] - Care Physician,No Primary [Primary Care Provider] - Disposition Disposition: Home, Self Care
--- NOTE | 2022-03-10 22:55 | EKG12_ITS ---
Test Reason : DYSRHYTHMIA Blood Pressure : / mmHG Vent. Rate : 069 BPM Atrial Rate : 069 BPM P-R Int : 142 ms QRS Dur : 100 ms QT Int : 380 ms P-R-T Axes : 064 052 051 degrees QTc Int : 407 ms Normal sinus rhythm with sinus arrhythmia Normal ECG Confirmed by DEJON CHONG, JOSE ENRIQUE ([id number]), film editor CHEYENNE REYES ([id number]) on 03/13/2022 9:59:59 AM Referred By: BB Confirmed By:JOSE ENRIQUE ASHFORD MD
--- NOTE | 2022-03-10 22:55 | RAD_ITS ---
STUDY: X-RAY CHEST REASON FOR EXAM: Male, 36 years old. chest pain, sob, cough TECHNIQUE: PA and lateral views of the chest. COMPARISON: 04/27/2021 FINDINGS: The lungs are clear and expanded. There is no demonstrated pleural abnormality. Normal size heart. Normal mediastinum and devonte. Normal visualized pulmonary arteries. Normal visualized aortic arch and descending thoracic aorta. Normal visualized thoracic spine. Normal visualized ribs, clavicles, and shoulders. There is no demonstrated abnormality of the visualized soft tissue structures of the upper abdomen. RAD/Chest PA and Lateral IMPRESSION: Normal x-ray examination of the chest. Electronically Signed: Chivo Catalan MD at 0:11 EDT ,
[2022-03-10 23:16] VITALS: PULSE 80; RESP 16
[2022-03-10] MEDS: Albuterol 2.5 MG/3 ML VIAL.NEB. INHALATION (23:16)
[2022-03-10 23:46] LABS: Absolute Lymphocyte Count 3.37 X10^3/uL (0.83-4.51); Absolute Neutrophil Count 2.4 X10^3/uL (2.0-7.7); Basophil# 0.05 X10^3/uL; Basophil% 0.8 % (0-1); Eosinophil# 0.24 X10^3/uL; Eosinophils% 3.6 % (0-5); Hematocrit 46.2 % (40-54); Lymphocyte # 3.37 X10^3/ul (0.83-4.51); Lymphocyte % 51.1 % (19-41); Mean Corp Hgb Conc 34.6 g/dL (32-36); Mean Corpuscular Volume 86.7 fL (80-94); Mean Platelet Vol. 10.8 fl (6.2-12.0); Monocyte# 0.54 X10^3/uL; Monocyte% 8.2 % (0-10); NRBC Flagged by Analyzer 0 % (0-5); Neutrophil # 2.39 X10^3/uL (2.7-7.7); Neutrophil % 36.1 % (47-70); Platelet Count 208 K/mm3 (150-450); RBC Distribution Width CV 12.6 % (11.6-14.6); RBC Distribution Width SD 39.7 fl (35.1-43.9); Red Blood Count 5.33 M/mm3 (4.6-6.2); White Blood Count 6.6 K/mm3 (4.4-11.0)
[2022-03-10 23:55] LABS: Color, Urine Yellow (Yellow); Glucose, Dipstick Normal (Normal); Ketone-Dipstick Negative (Negative); Leukocyte Esterase-Dipstick 100 /ul (Negative); Nitrite-Dipstick Negative (Negative); Occult Blood-Urine 10 /ul (Negative); Protein-Dipstick 30 mg/dl (Negative); Urine Bilirubin Dipstick Negative (Negative); Urine Clarity Clear (Clear); Urine Urobilinogen 1 mg/dl (Normal)
[2022-03-11 00:05] LABS: Anion Gap 6 (5-15); BUN 17 mg/dL (7-18); BUN/Creat Ratio 11.7 RATIO (10-20); CPK Total, Creatine Kinase 571 U/L (39-308); Calcium,Total 9.1 mg/dL (8.5-10.1); Chloride 106 mmol/L (98-107); Creatinine, Serum 1.45 mg/dL (0.70-1.30); EST Glomerular Filtration Rate 58 mL/min (>60); Est Glom Filt Rate - Afr Amer 71 mL/min (>60); Estimated Creatinine Clearance 81.89 ml/min; Glucose 123 mg/dL (74-106); Potassium 4.4 mmol/L (3.5-5.1); Sodium Level 139 mmol/L (136-145); Troponin-I HS 8 pg/mL (3.0-78.0)
[2022-03-11 00:16] LABS: Bacteria RARE /hpf (None Seen); Mucous, Urine 1+ /hpf (<or=2+); Red Blood Cells-Urine 0-5 SEEN /hpf (0-5); Squamous Epithelial Cells - UA 0-5 SEEN /hpf (0-5); White Blood Cells 10-25 SEEN /hpf (0-5)
[2022-03-11 00:48] VITALS: BP 134/89; PULSE 79; RESP 16; O2SAT 97
== END 2022-03-11 00:59 | disposition home or self-care (01) ==
PROVIDERS: Emergency Provider Emergency Medicine; Visit Provider Emergency Medicine
DX: I12.9 Hypertensive chronic kidney disease with stage 1 through stage 4 chronic kidney disease, or unspecified chronic kidney disease (principal); J45.901 Unspecified asthma with (acute) exacerbation; R25.2 Cramp and spasm; R07.9 Chest pain, unspecified; R82.81 Pyuria; R80.9 Proteinuria, unspecified; R20.2 Paresthesia of skin; N18.9 Chronic kidney disease, unspecified; M54.50 Low back pain, unspecified; Z87.891 Personal history of nicotine dependence; R73.03 Prediabetes
CPT/HCPCS: G0463; 71046; 80048; 81001; 82550; 84484; 85025; 93005; 94640; 99251; 99282

== ENCOUNTER 2022-11-09 15:29 | Emergency (ER) | payer MEDICAID, SELFPAY ==
[2022-11-09 15:30] VITALS: BP 159/108; PULSE 98; RESP 18; TEMP 35.9; O2SAT 96
--- NOTE | 2022-11-09 16:00 | RAD_ITS ---
EXAM: XR CHEST, 1 VIEW CLINICAL INDICATION: SOB TECHNIQUE: Frontal view of the chest. This report was created using [employer] report generation technology. COMPARISON: 03.10.22 FINDINGS: LUNGS AND PLEURAL SPACES: Unremarkable. No consolidation or edema. No pneumothorax. No effusion. HEART: Unremarkable. Cardiac silhouette not enlarged. MEDIASTINUM: Central airways and mediastinal contour are unremarkable. BONES/JOINTS: Unremarkable. SOFT TISSUES: Unremarkable. RAD/Chest 1 View (Portable) IMPRESSION: No radiographic evidence of acute cardiopulmonary disease. Electronically Signed: Houston Leavitt MD at 16:14 EST ,
[2022-11-09 16:23] VITALS: BMI 40.8
[2022-11-09 16:25] VITALS: BP 168/89; PULSE 84; RESP 18; TEMP 36.6; O2SAT 98
[2022-11-09 16:26] VITALS: BP 168/89; PULSE 87; RESP 18; TEMP 36.6; O2SAT 98
[2022-11-09] MEDS: Ketorolac 15 MG/ML Vial IV (16:47)
[2022-11-09 16:50] LABS: Bedside Glucose 147 mg/dL (74-106)
[2022-11-09 17:00] LABS: Absolute Lymphocyte Count 3.29 X10^3/uL (0.83-4.51); Absolute Neutrophil Count 2.8 X10^3/uL (2.0-7.7); Basophil# 0.03 X10^3/uL; Basophil% 0.4 % (0-1); Eosinophil# 0.19 X10^3/uL; Eosinophils% 2.7 % (0-5); Hematocrit 42.5 % (40-54); Hemoglobin 14.3 g/dL (13.0-16.5); Lymphocyte # 3.29 X10^3/ul (0.83-4.51); Lymphocyte % 47.3 % (19-41); Mean Corp Hgb Conc 33.6 g/dL (32-36); Mean Corpuscular Hgb 30.2 pg (27.0-32.0); Mean Corpuscular Volume 89.7 fL (80-94); Mean Platelet Vol. 11.9 fl (6.2-12.0); Monocyte# 0.62 X10^3/uL; Monocyte% 8.9 % (0-10); NRBC Flagged by Analyzer 0 % (0-5); Neutrophil # 2.82 X10^3/uL (2.7-7.7); Neutrophil % 40.6 % (47-70); Platelet Count 226 K/mm3 (150-450); RBC Distribution Width CV 12.8 % (11.6-14.6); RBC Distribution Width SD 42.2 fl (35.1-43.9); Red Blood Count 4.74 M/mm3 (4.6-6.2)
--- NOTE | 2022-11-09 17:10 | EX.ED.VIS.UR ---
HPI HPI - URI History of Present Illness Chief Complaint: Shortness of Breath Narrative Narrative: 37-year-old male presenting with viral symptoms. He states he has been having these for about 3 to 4 days. He describes generalized fatigue, body aches, shortness of breath. Subjective fever and chills. No chest pain. No nausea vomiting. No diarrhea. No abdominal pain. States he has a history of diabetes and hypertension. ROS ROS ED Constitutional Constitutional ED: Reports chills and subjective Eyes Eyes: Denies change in vision or diplopia ENT ENT ED: Reports rhinorrhea Cardiovascular Cardiovascular: Denies chest pain or palpitations Respiratory/Chest Respiratory/Chest: Reports cough and dyspnea Gastrointestinal Gastrointestinal: Denies abdominal pain, nausea or vomiting Genitourinary Genitourinary ED: Denies dysuria or hematuria Musculoskeletal Musculoskeletal: Reports myalgias; Denies arthralgias Integumentary Denies abscess Neurologic Neurologic: Reports headache(s); Denies paresthesias or weakness Psychiatric Psychiatric: Denies depression PFSH PFS Medical History Asthma Borderline diabetes PTSD (post-traumatic stress disorder) Rhabdomyolysis UTI symptoms Home Medications albuterol sulfate 90 mcg/actuation aerosol inhaler (Ventolin HFA) 1 - 2 puff inhalation Q4H PRN PRN Wheezing ##1 03/11/22 [Rx Last Taken Unknown] lisinopril 10 mg tablet 10 mg PO DAILY #30 tabs 03/11/22 [Rx Last Taken Unknown] metformin 500 mg tablet 1 tablet PO DAILY 07/27/22 [History Last Taken Unknown] fluoxetine 20 mg capsule (Prozac) 20 mg PO DAILY #30 caps 09/20/22 [Rx Last Taken Unknown] Allergy/AdvReac Type Severity Reaction Status Date / Time No Known Allergies Allergy Verified 11/09/22 16:27 Family History Other Alcoholism Anxiety Asthma Diabetes Kidney disease Mental disorder Surgical History Hx of hernia repair Hx of tonsillectomy Social History Smoking Status: Current every day smoker tobacco type: cigarettes and cigars alcohol intake: never substance use type: does not use EXAM Physical Exam Const Vital Signs: 11/09/22 15:30 11/09/22 16:25 11/09/22 16:26 Temperature 96.6 F L 97.9 F 97.9 F Temperature Source Temporal Oral Oral Pulse Rate 98 84 87 Respiratory Rate 18 18 18 Respiratory Effort Respiratory Depth Respiratory Pattern Blood Pressure 159/108 H 168/89 H 168/89 H Blood Pressure Mean 125 115 115 Pulse Ox 96 98 98 Oxygen Delivery Method Room Air Room Air Room Air 11/09/22 16:26 11/09/22 16:26 11/09/22 17:42 Temperature Temperature Source Pulse Rate Respiratory Rate 18 Respiratory Effort Normal Non-Labored Respiratory Depth Normal Respiratory Pattern Normal Blood Pressure Blood Pressure Mean Pulse Ox 98 98 Oxygen Delivery Method Room Air Room Air Room Air 11/09/22 17:43 Temperature 98.2 F Temperature Source Oral Pulse Rate 81 Respiratory Rate 17 Respiratory Effort Respiratory Depth Respiratory Pattern Blood Pressure 132/81 H Blood Pressure Mean 98 Pulse Ox 98 Oxygen Delivery Method Room Air Positive well nourished General Appearance ED: NAD; Negative for pallor HEENT Reports moist mucous membranes normocephalic Eyes PERRL Neck no lymphadenopathy Resp normal respiratory effort and clear to auscultation bilaterally Auscultation: Negative for rales, rhonchi or wheezes Cardio Rate: regular rate Rhythm: regular rhythm GI non-tender Neuro oriented x3 Sensorium / Orientation: alert Motor Exam: strength 5/5 throughout Psych mental status grossly normal Skin General Skin Exam: Negative for jaundice or pallor MDM MDM MDM Narrative Medical decision making narrative: Patient presenting with viral symptoms. I did test him for COVID today and this was negative. He is outside the treatment window for influenza so I did not test. I did funeral planning counselor him that he could have something viral. He does have concern about being around his small child. I did funeral planning counselor him that whether he tested positive or negative he reviews feeling as he had something viral he should try to limit his contact with the baby. He does state that his child's mother is taking care of the child. I obtained a blood side glucose because he is a diabetic and this is 147. CBC was obtained for white blood cell count, hemoglobin, differential and this is normal. Patient concerned about his renal function because he has a history of knee injury. He states he is drinking 3 bottles of water a day. BMP will be obtained to assess renal function, electrolytes. CBC and BMP are unremarkable with exception of a mildly elevated glucose of 161 without anion gap. Patient vital signs are normal. He is well-appearing. Lungs are clear to auscultation. COVID test is negative. I think he stable for discharge. I did funeral planning counselor him he may still have something viral. He is to use Tylenol and ibuprofen and drink plenty of fluids. Return precautions discussed. Impression: 1. Viral syndrome Lab Data Labs: Laboratory Results - last 24 hr 11/09/22 11/09/22 11/09/22 16:33 16:50 16:50 WBC 7.0 RBC 4.74 Hgb 14.3 Hct 42.5 MCV 89.7 MCH 30.2 MCHC 33.6 RDW Std Deviation 42.2 RDW Coeff of Cindy 12.8 Plt Count 226 MPV 11.9 Immature Gran % (Auto) 0.100 Neut % (Auto) 40.6 L Lymph % (Auto) 47.3 H [place] % (Auto) 8.9 Eos % (Auto) 2.7 Baso % (Auto) 0.4 Absolute Neuts (auto) 2.8 Absolute Lymphs (auto) 3.29 Nucleated RBC % 0 Sodium 137 Potassium 4.3 Chloride 105 Carbon Dioxide 25.0 Anion Gap 7 BUN 13 Creatinine 1.19 Estim Creat Clear Calc 98.82 Est GFR (MDRD) Af Amer 88 Est GFR (MDRD) Non-Af 73 BUN/Creatinine Ratio 10.9 Glucose 161 H Calcium 9.1 POC Glucose 147 H Radiography Diagnostic Testing: Clinical Impression(s) from Imaging Studies Chest X-Ray 11/09/22 16:00 IMPRESSION: No radiographic evidence of acute cardiopulmonary disease. Electronically Signed: Houston Leavitt MD at 16:14 EST [place] Location ID and State: [facility] / [place] , Service support , Discharge Plan Triage Chief Complaint: Shortness of Breath Other Complaint: Cold Sx ED Provider: Milton De Jesus Dx/Rx/DC Orders Instructions: ED Viral Syndrome (Adult) Prescriptions: No Action metformin 500 mg tablet 1 tablet PO DAILY fluoxetine [Prozac] 20 mg capsule 20 mg PO DAILY Qty: 30 2RF albuterol sulfate [Ventolin HFA] 1 INHALER inhaler 1 - 2 puff inhalation Q4H PRN PRN (Reason: Wheezing) Qty: 1 0RF lisinopril 10 mg tablet 10 mg PO DAILY Qty: 30 0RF Primary Care Provider: Sesar Ronquillo Referrals: Sesar Ronquillo MD [Primary Care Provider] - Disposition Disposition: Home, Self Care
[2022-11-09 17:11] LABS: Anion Gap 7 (5-15); BUN 13 mg/dL (7-18); BUN/Creat Ratio 10.9 RATIO (10-20); Calcium,Total 9.1 mg/dL (8.5-10.1); Chloride 105 mmol/L (98-107); Creatinine, Serum 1.19 mg/dL (0.70-1.30); EST Glomerular Filtration Rate 73 mL/min (>60); Est Glom Filt Rate - Afr Amer 88 mL/min (>60); Estimated Creatinine Clearance 98.82 ml/min; Glucose 161 mg/dL (74-106); Potassium 4.3 mmol/L (3.5-5.1); Sodium Level 137 mmol/L (136-145)
[2022-11-09 17:42] VITALS: O2SAT 98
[2022-11-09 17:43] VITALS: BP 132/81; PULSE 81; RESP 17; TEMP 36.8; O2SAT 98
[2022-11-09 18:03] VITALS: BP 137/97; PULSE 79
== END 2022-11-09 18:06 | disposition home or self-care (01) ==
PROVIDERS: Emergency Provider Student in an Organized Health Care Education/Training Program; PCP Family Medicine; Visit Provider Student in an Organized Health Care Education/Training Program
DX: B34.9 Viral infection, unspecified (principal); E11.65 Type 2 diabetes mellitus with hyperglycemia; Z20.822 Contact with and (suspected) exposure to COVID-19; R06.02 Shortness of breath; I10 Essential (primary) hypertension; R51.9 Headache, unspecified; J45.909 Unspecified asthma, uncomplicated
CPT/HCPCS: 71045; 80048; 82962; 85025; 87811; 94760; 96374; 99283; A4216

== ENCOUNTER 2022-12-21 21:27 | Emergency (ER) | payer MEDICAID, SELFPAY ==
[2022-12-21 21:28] VITALS: BP 162/108; PULSE 104; RESP 16; TEMP 36.3; O2SAT 99; BMI 38.7
--- NOTE | 2022-12-21 21:44 | EKG12_ITS ---
Test Reason : SOB Blood Pressure : / mmHG Vent. Rate : 095 BPM Atrial Rate : 095 BPM P-R Int : 132 ms QRS Dur : 094 ms QT Int : 352 ms P-R-T Axes : 077 056 049 degrees QTc Int : 442 ms Normal sinus rhythm Nonspecific T wave abnormality Abnormal ECG Confirmed by JASEN MCCALL ([id number]), videotape editor CHEYENNE REYES ([id number]) on 12/25/2022 7:35:20 AM Referred By: Confirmed By:JASEN MCCALL
--- NOTE | 2022-12-21 21:45 | EX.ED.DYSGE1 ---
HPI History of Present Illness Chief Complaint: Hyperglycemia Narrative Narrative: 37-year-old male here with concern for hyperglycemia. Also notes 3 days of fatigue, occasional blurry vision. Also endorses groin pain. Patient states he is compliant with metformin. Notes no history of DKA. Denies any vomiting, fever, cough, abdominal pain, diarrhea. Patient also endorses urethral discharge. States he sexually active with 1 partner unprotected. Notes history of prior STDs. States the symptoms feel similar. Denies any testicular tenderness. Denies any fevers nausea or vomiting. PFSH PFS Medical History Asthma Borderline diabetes PTSD (post-traumatic stress disorder) Rhabdomyolysis UTI symptoms Home Medications albuterol sulfate 90 mcg/actuation aerosol inhaler (Ventolin HFA) 1 - 2 puff inhalation Q4H PRN PRN Wheezing ##1 03/11/22 [Rx Last Taken Unknown] lisinopril 10 mg tablet 10 mg PO DAILY #30 tabs 03/11/22 [Rx Last Taken Unknown] metformin 500 mg tablet 1 tablet PO DAILY 07/27/22 [History Last Taken Unknown] fluoxetine 20 mg capsule (Prozac) 20 mg PO DAILY #30 caps 09/20/22 [Rx Last Taken Unknown] doxycycline monohydrate 100 mg capsule 100 mg PO BID #14 CAPSULES 12/21/22 [Rx Last Taken Unknown] Allergy/AdvReac Type Severity Reaction Status Date / Time No Known Allergies Allergy Verified 12/21/22 21:27 Family History Other Alcoholism Anxiety Asthma Diabetes Kidney disease Mental disorder Surgical History Hx of hernia repair Hx of tonsillectomy Social History Smoking Status: Current every day smoker tobacco type: cigarettes and cigars alcohol intake: never substance use type: does not use ROS ROS ED ROS Narrative Constitutional: Denies fever HEENT: Denies sore throat, endorses blurry vision Neck: Denies neck pain Cardiovascular: Denies chest pain, syncope Respiratory: Denies shortness of breath GI: Denies nausea vomiting or abdominal pain : Denies changes in urinary habits Musculoskeletal: Denies muscle or joint pain Neurologic: Denies numbness weakness or loss of sensation Skin denies rash Endocrine: Endorses hyperglycemia EXAM Physical Exam Narrative Exam Narrative: Nursing triage notes reviewed, Vital signs reviewed Constitutional: please see [facility] HENT: MMM, Eyes: Pupils equal round and reactive to light, Extraocular muscles intact, visual mccann intact. Visual acuity 20/30 bilaterally. Conjunctiva injected bilaterally. No evidence of hordeolum, dacryocystitis Neck: No stridor, no JVD, full neck ROM Lungs: Clear to auscultation, No wheezing or rales. No increased work of breathing, no conversational dyspnea, no accessory muscle use, no nasal flaring. No respiratory distress noted Heart: Regular rate and rhythm, No murmurs, No rubs and No gallops, 2+ distal pulses (radial, femoral, posterior tibial) in all extremities Abdomen: Soft, there is no tenderness, rigidity, rebound or guarding, no obvious peritoneal signs, no palpable pulsatile abdominal masses, no auscultated abdominal bruit : No CVAT, no obvious scrotal tenderness, testicular tenderness, no abnormal testicular lie, no perineal involvement, abrasions noted to the dorsal aspect of the penis. Extremities: No edema Neuro: No focal neurological deficits, cranial nerves II through XII intact, 5/5 strength in all extremities. Intact sensation to light touch in all extremities, 2+ reflexes bilateral patella dens. Normal gait. No ataxia. Skin: No rash or lesions noted Const Vital Signs: 12/21/22 21:28 12/21/22 22:18 Temperature 97.4 F L Temperature Source Temporal Pulse Rate 104 H Respiratory Rate 16 Respiratory Pattern Normal Blood Pressure 162/108 H Blood Pressure Mean 126 Pulse Ox 99 Oxygen Delivery Method Room Air [facility] [place] Narrative Medical decision making narrative: Chief Complaint: Hyperglycemia External records reviewed: Patient is currently on metformin I considered the following differential diagnosis: DKA, hyperglycemia, STDs, Cruz's gangrene, testicular torsion Patient exam is not consistent with Cruz's gangrene or testicular torsion as such I do not perform advanced imaging of the testicles or pelvis. Patient not require antibiotic therapy or surgical consultation. Did perform labs rule out signs of DKA or hyperglycemia. Patient's blood sugars were only minimally elevated with no signs of DKA with no anion gap, normal bicarb. There is no serum ketones to suggest DKA either. Patient was given prophylactic STD treatment in the form of doxycycline and ceftriaxone IM. He was tested for gonorrhea, chlamydia, trichomonas. He was told refrain from sexual activity until results of STD testing are known. He is told to take doxycycline as prescribed. He was told to follow-up with primary care physician. Patient agreed with the plan. Factors affecting care: Type 2 diabetes Social determinants of health: Poor health literacy History obtained from others: None Shared decision making: I will have a discussion with the patient and or visitors regarding risk/benefits of further testing or admission. They will be made aware of of the risk/benefits inherent in this decision they will be given the opportunity to voice understanding. Consults: None Lab Data Lab results narrative: CBC without leukocytosis, severe anemia, no thrombocytopenia. BMP without evidence of significant electrolyte abnormalities, no anion gap, no acute kidney injury but there is mild renal insufficiency. Bicarb on BMP greater than 15 making DKA less likely Blood ketones are negative Troponin is negative, no evidence of myocardial ischemia Labs: Laboratory Results - last 24 hr 12/21/22 12/21/22 12/21/22 21:55 21:55 21:55 WBC 6.7 RBC 5.07 Hgb 15.3 Hct 45.4 MCV 89.5 MCH 30.2 MCHC 33.7 RDW Std Deviation 40.5 RDW Coeff of Cindy 12.3 Plt Count 283 MPV 10.8 Immature Gran % (Auto) 0.200 Neut % (Auto) 35.3 L Lymph % (Auto) 54.7 H [place] % (Auto) 6.5 Eos % (Auto) 2.7 Baso % (Auto) 0.6 Absolute Neuts (auto) 2.4 Absolute Lymphs (auto) 3.64 Nucleated RBC % 0 Sodium 138 Potassium 4.0 Chloride 105 Carbon Dioxide 26.0 Anion Gap 7 BUN 20 H Creatinine 1.42 H Estim Creat Clear Calc 82.81 Est GFR (MDRD) Af Amer 72 Est GFR (MDRD) Non-Af 60 BUN/Creatinine Ratio 14.1 Glucose 157 H Calcium 9.3 Troponin I High Sens 8 Acetone Level NEGATIVE POC Glucose 12/21/22 22:12 WBC RBC Hgb Hct MCV MCH MCHC RDW Std Deviation RDW Coeff of Cindy Plt Count MPV Immature Gran % (Auto) Neut % (Auto) Lymph % (Auto) [place] % (Auto) Eos % (Auto) Baso % (Auto) Absolute Neuts (auto) Absolute Lymphs (auto) Nucleated RBC % Sodium Potassium Chloride Carbon Dioxide Anion Gap BUN Creatinine Estim Creat Clear Calc Est GFR (MDRD) Af Amer Est GFR (MDRD) Non-Af BUN/Creatinine Ratio Glucose Calcium Troponin I High Sens Acetone Level POC Glucose 156 H ABG Data ABG results: ABG 12/21/22 22:24 Specimen Type JEREL VBG pH 7.40 VBG pO2 117 H VBG HCO3 27 H VBG Total CO2 28 VBG O2 Sat (Calc) 99 H VBG Base Excess 2 POC Mix VBG pCO2 Pt Tmp 43.1 Discharge Plan Triage Chief Complaint: Hyperglycemia ED Provider: Paulo Martini Dx/Rx/DC Orders Clinical Impression: Acute hyperglycemia Prescriptions: New doxycycline monohydrate 100 mg capsule 100 mg PO BID Qty: 14 0RF No Action metformin 500 mg tablet 1 tablet PO DAILY fluoxetine [Prozac] 20 mg capsule 20 mg PO DAILY Qty: 30 2RF albuterol sulfate [Ventolin HFA] 1 INHALER inhaler 1 - 2 puff inhalation Q4H PRN PRN (Reason: Wheezing) Qty: 1 0RF lisinopril 10 mg tablet 10 mg PO DAILY Qty: 30 0RF Primary Care Provider: Sesar Ronquillo Referrals: Sesar Ronquillo MD [Primary Care Provider] - Activity Restrictions/Additional Instructions: Thank you for trusting us with your care today! Please refrain from sexual activity until results of STD testing are known. Please take doxycycline until course complete. Please take Tylenol (2 pills, 650 mg), ibuprofen (2 pills, 400 mg) every 6 hours as needed for pain and fever control. Please return to the emergency department if your symptoms change or worsen. Please follow with your primary care physician for further outpatient evaluation and management. Disposition Disposition: Home, Self Care
[2022-12-21 22:03] LABS: Absolute Lymphocyte Count 3.64 X10^3/uL (0.83-4.51); Absolute Neutrophil Count 2.4 X10^3/uL (2.0-7.7); Basophil# 0.04 X10^3/uL; Basophil% 0.6 % (0-1); Eosinophil# 0.18 X10^3/uL; Eosinophils% 2.7 % (0-5); Hematocrit 45.4 % (40-54); Hemoglobin 15.3 g/dL (13.0-16.5); Lymphocyte # 3.64 X10^3/ul (0.83-4.51); Lymphocyte % 54.7 % (19-41); Mean Corp Hgb Conc 33.7 g/dL (32-36); Mean Corpuscular Hgb 30.2 pg (27.0-32.0); Mean Corpuscular Volume 89.5 fL (80-94); Mean Platelet Vol. 10.8 fl (6.2-12.0); Monocyte# 0.43 X10^3/uL; Monocyte% 6.5 % (0-10); NRBC Flagged by Analyzer 0 % (0-5); Neutrophil # 2.35 X10^3/uL (2.7-7.7); Neutrophil % 35.3 % (47-70); Platelet Count 283 K/mm3 (150-450); RBC Distribution Width CV 12.3 % (11.6-14.6); RBC Distribution Width SD 40.5 fl (35.1-43.9); Red Blood Count 5.07 M/mm3 (4.6-6.2); White Blood Count 6.7 K/mm3 (4.4-11.0)
[2022-12-21] MEDS: 0.9% Normal Saline 1,000 ML 999 ML IV (22:16)
[2022-12-21 22:23] LABS: Anion Gap 7 (5-15); BUN 20 mg/dL (7-18); BUN/Creat Ratio 14.1 RATIO (10-20); Calcium,Total 9.3 mg/dL (8.5-10.1); Chloride 105 mmol/L (98-107); Creatinine, Serum 1.42 mg/dL (0.70-1.30); EST Glomerular Filtration Rate 60 mL/min (>60); Est Glom Filt Rate - Afr Amer 72 mL/min (>60); Estimated Creatinine Clearance 82.81 ml/min; Glucose 157 mg/dL (74-106); Sodium Level 138 mmol/L (136-145); Troponin-I HS 8 pg/mL (3.0-78.0)
[2022-12-21 22:31] LABS: Blood Gas Specimen Type VEN; VBG BASE EXCESS 2 mmol/L (-1.0-3.5); VBG Bicarbonate 27 mmol/L (22-26); VBG PO2 117 mmHg (25-40); VBG SO2 99 % (50-70); VBG TCO2 28 mmol/L (23-33); VBG pCO2 43.1 mmHg (41-51)
[2022-12-21 22:35] LABS: Bedside Glucose 156 mg/dL (74-106)
[2022-12-22] MEDS: Ceftriaxone 500 MG Vial IM (00:02)
[2022-12-22] MEDS: Doxycycline 100 MG CAPSULE PO (00:02)
[2022-12-22 02:48] LABS: Chlamydia Trachomatis by PCR Negative (Negative); Neisserai gonorrhoeae by PCR Negative (Negative); Probe Check PASS; Sample Adequacy Control PASS; Specimen Processing Control PASS
== END 2022-12-22 00:33 | disposition home or self-care (01) ==
PROVIDERS: Emergency Provider Emergency Medicine; PCP Family Medicine; Visit Provider Emergency Medicine
DX: E11.65 Type 2 diabetes mellitus with hyperglycemia (principal); Z79.84 Long term (current) use of oral hypoglycemic drugs; H53.8 Other visual disturbances; J45.909 Unspecified asthma, uncomplicated; F17.210 Nicotine dependence, cigarettes, uncomplicated; Z87.438 Personal history of other diseases of male genital organs; Z11.3 Encounter for screening for infections with a predominantly sexual mode of transmission
CPT/HCPCS: 80048; 82009; 82803; 82962; 84484; 85025; 87491; 87591; 93005; 96360; 96372; 99283; J7030; A4216

== ENCOUNTER 2022-12-29 11:36 | Emergency (ER) | payer MEDICAID, SELFPAY ==
[2022-12-29 11:38] VITALS: BP 204/179; PULSE 109; RESP 18; TEMP 36.4; O2SAT 98; BMI 38.4
--- NOTE | 2022-12-29 11:54 | EX.ED.GUMALE ---
HPI History of Present Illness Chief Complaint: Male Pain/Injury Detail of Chief Complaint: Discomfort around the foreskin of his penis. Informant: patient Pain Onset: Days Context: Gradual Onset Timing: Continuous Current Severity: Mild Maximum Severity: Mild Narrative Narrative: 37-year-old uncircumcised diabetic male. Concerned that he is having inflammation around his foreskin. Discomfort. Denies any penile discharge. Recently was treated for a possible STD but I do not see any testing on the computer. He has had no penile discharge I do not think that was the issue. He is able to retract the foreskin. He denies any dysuria. Prior similar symptoms: Yes Recent Illness/Hospitalization: No PFSH PFSH Medical History Asthma Borderline diabetes PTSD (post-traumatic stress disorder) Rhabdomyolysis UTI symptoms Home Medications albuterol sulfate 90 mcg/actuation aerosol inhaler (Ventolin HFA) 1 - 2 puff inhalation Q4H PRN PRN Wheezing ##1 03/11/22 [Rx Last Taken Unknown] lisinopril 10 mg tablet 10 mg PO DAILY #30 tabs 03/11/22 [Rx Last Taken Unknown] metformin 500 mg tablet 1 tablet PO DAILY 07/27/22 [History Last Taken Unknown] fluoxetine 20 mg capsule (Prozac) 20 mg PO DAILY #30 caps 09/20/22 [Rx Last Taken Unknown] doxycycline monohydrate 100 mg capsule 100 mg PO BID #14 CAPSULES 12/21/22 [Rx Last Taken Unknown] clotrimazole 1 % topical cream 1 applic topical BID 10 days #30 grams 12/29/22 [Rx Last Taken Unknown] Allergy/AdvReac Type Severity Reaction Status Date / Time No Known Allergies Allergy Verified 12/29/22 11:40 Family History Other Alcoholism Anxiety Asthma Diabetes Kidney disease Mental disorder Surgical History Hx of hernia repair Hx of tonsillectomy Social History Smoking Status: Current every day smoker tobacco type: cigarettes and cigars alcohol intake: never substance use type: does not use ROS ROS ED ROS Narrative Denies. Review of Systems ROS Unobtainable: Denies due to encephalopathy Constitutional Constitutional ED: Denies chills or fever(s) Eyes Eyes: Denies blurry vision ENT ENT ED: Denies ear pain Cardiovascular Cardiovascular: Denies chest pain Respiratory/Chest Respiratory/Chest: Denies cough or dyspnea Gastrointestinal Gastrointestinal: Denies abdominal pain Genitourinary Genitourinary ED: Denies dysuria Musculoskeletal Musculoskeletal: Denies arthralgias Integumentary Denies abscess Neurologic Neurologic: Denies headache(s) Psychiatric Psychiatric: Denies anxiety Endocrine Endocrinology: Denies polydipsia Hematologic/Lymphatic Hematologic/Lymphatic: Denies easy bleeding Allergic/Immunologic Allergic/Immunologic ED: Denies mouth swelling EXAM Physical Exam Narrative Exam Narrative: 37-year-old male no acute stress. Vital signs stable with blood pressure initially 204 179 have them recheck that prior to discharge. H EENT exam unremarkable. Lungs clear. Heart regular rhythm. Abdomen soft nontender. Moving all 4 extremities. External exam. Uncircumcised male. He can retract the foreskin. Is not significantly swollen. He does have mild inflammation and smegma consistent with yeast. There is no penile discharge. No lymphadenopathy. No testicular tenderness nor masses nor lymphadenopathy. There is no ulcerated lesions. Clinically this is consistent with balanitis. Patient extremities are unremarkable. Const Vital Signs: 12/29/22 11:38 Temperature 97.5 F L Temperature Source Temporal Pulse Rate 109 H Respiratory Rate 18 Blood Pressure 204/179 H Blood Pressure Mean 187 Pulse Ox 98 Oxygen Delivery Method Room Air Positive well nourished and well developed; Negative for cachectic, contractures or unkempt General Appearance ED: well developed; Negative for unkempt, cachectic, contractures, NAD or pallor Nutritional Appearance: Negative for cachectic HEENT Reports moist mucous membranes normocephalic and atraumatic; Negative for trauma or tenderness Eyes PERRL and EOMs intact bilaterally General Eye ED: Negative for pale conjunctiva or scleral icterus Neck no lymphadenopathy, supple and no JVD General: Negative for tenderness Resp normal respiratory effort and clear to auscultation bilaterally Effort and Inspection: Negative for retractions Auscultation: Negative for rales, rhonchi or wheezes Cardio regular rate, regular rhythm, S1 normal heart sound, S2 normal heart sound and no murmurs Rate: Negative for bradycardia Rhythm: Negative for abnormal rhythm Heart Sounds: Negative for other GI non-tender, non-distended and no masses GI Narrative: External exam reveals a uncircumcised male. Able to retract the foreskin. Mild balanitis. Smegma around the. Penis consistent with yeast. No ulcerations. No lymphadenopathy. No penile discharge. Inspection: Negative for abdominal distention Auscultation: normoactive bowel sounds Palpation: soft; Negative for tender or guarding no CVA tenderness Bladder / Kidney Exam: No CVA tenderness Groin / Perineum Exam: Negative for edema Back/Spine no CVA tenderness General Back: Negative for CVA tenderness Cervical Spine: Negative for cervical spine tenderness Thoracic Spine / Upper Back: Negative for thoracic spinal tenderness Lumbar Spine / Lower Back: Negative for lumbar spinal tenderness Extremity normal to inspection General Extremety ED: Negative for edema or pulses abnormal General Extremity: Negative for edema or pulses abnormal Neuro oriented x3 and moves all extremities Sensorium / Orientation: alert, oriented to person, oriented to place and oriented to time; Negative for orientation impaired or confused Motor Exam: strength 5/5 throughout Psych mental status grossly normal Appearance: Negative for unkempt Attitude: No agitated Mood & Affect: Negative for depressed, anxious or tearful Thought Process: normal thought process Thought Content: normal thought content Skin General Skin Exam: Negative for jaundice or pallor Lesions: no lesions Rashes: no rashes MDM MDM MDM Narrative Medical decision making narrative: Exam is consistent with balanitis. He is diabetic we will check a BG T because he is having trouble with his glucometer at home. He and I discussed he will be placed on antifungal cream and follow-up with a local urologist to discuss having a circumcision. History & Record Review Discussion w/independent historian: Patient Lab Data Lab results narrative: Blood sugar is Discharge Plan Triage Chief Complaint: Male Pain/Injury ED Provider: Roney Shipley Dx/Rx/DC Orders Clinical Impression: Acute balanitis due to infection, History of diabetes mellitus Instructions: ED Balanitis Prescriptions: New clotrimazole 1 % cream 1 applic topical BID 10 Days Qty: 30 0RF No Action metformin 500 mg tablet 1 tablet PO DAILY fluoxetine [Prozac] 20 mg capsule 20 mg PO DAILY Qty: 30 2RF albuterol sulfate [Ventolin HFA] 1 INHALER inhaler 1 - 2 puff inhalation Q4H PRN PRN (Reason: Wheezing) Qty: 1 0RF lisinopril 10 mg tablet 10 mg PO DAILY Qty: 30 0RF doxycycline monohydrate 100 mg capsule 100 mg PO BID Qty: 14 0RF Primary Care Provider: [facility] ,Out of Referrals: Devon Keys MD [Med Staff - Active Staff] - As soon as possible [facility] Doctor,Out of [Primary Care Provider] - Activity Restrictions/Additional Instructions: Follow-up with a local urologist Dr. Bhavin Keys to discuss with him possibly having a circumcision done. You have an infection around your shaft due to the foreskin. Clean this area gently every day. Apply antifungal cream and this should improve. This is most likely due to a yeast infection in this area and not an STD. Apply antiyeast cream twice a day. Disposition Disposition: Home, Self Care
[2022-12-29 12:16] VITALS: BP 144/81
[2022-12-29 12:30] LABS: Bedside Glucose 232 mg/dL (74-106)
== END 2022-12-29 12:22 | disposition home or self-care (01) ==
PROVIDERS: Emergency Provider Emergency Medicine; Visit Provider Emergency Medicine
DX: N48.1 Balanitis (principal); E11.9 Type 2 diabetes mellitus without complications; J45.909 Unspecified asthma, uncomplicated; F17.210 Nicotine dependence, cigarettes, uncomplicated
CPT/HCPCS: 82962; 99282

== ENCOUNTER 2023-02-25 20:39 | Emergency (ER) | payer MEDICAID, SELFPAY ==
[2023-02-25 20:40] VITALS: BP 163/109; PULSE 93; RESP 16; TEMP 36.1; O2SAT 99; BMI 37.5
--- NOTE | 2023-02-25 22:15 | ED.RN ---
CALLED FOR PT AT [id number], NO ANSWER
== END 2023-02-25 23:14 | disposition left against medical advice (07) ==
LOC: ED 23:15
DX: R69 Illness, unspecified (principal); Z53.21 Procedure and treatment not carried out due to patient leaving prior to being seen by health care provider

== ENCOUNTER 2023-11-16 11:57 | Emergency (ER) | payer MEDICAID, SELFPAY ==
[2023-11-16 11:58] VITALS: BP 107/88; PULSE 117; RESP 18; TEMP 36.2; O2SAT 97; BMI 37.2
--- NOTE | 2023-11-16 12:07 | EDS_ITS ---
<Statement entered by Ronit Mcgarry MD - 11/16/23 12:20> I have personally performed a face to face assessment of the patient and have reviewed the SHAILESH Note. Patient presents due to ingrown hair on his chin. He states he has had what he believes is an ingrown hair on his chin for the last 2 months. He is been scrubbing the area. He missed 3 different dermatology appointments presents here today. He does have a history of diabetes. Patient sitting upright in bed no acute distress. Nontoxic-appearing. Head and neck examination reveals roughly 3 cm round area over the anterior chin where the top layer of skin has been scraped off. Skin is slightly thickened. I do not feel any fluctuance. There is no spontaneous drainage. Submental space is soft. Patient was started on oral antibiotics. I do not feel a focal abscess that would be amenable to drainage at this time. I do recommend he follow-up with dermatology and he has been given both dermatology groups here in town to schedule follow-up. HPI History of Present Illness Chief Complaint: Abscess Narrative Narrative: Patient is a 38-year-old male with history of diabetes who presents to the emergency department for a lesion on his chin that has been there for 2 months. Per his girlfriend, she did have him follow-up with a receiving weigher, patient missed 3 appointments secondary to it being so far away. Patient states that he continues to scrub it, he feels like there is something in there. He states there are some pressure when he lays on his face. He denies any fever or chills. Patient is diabetic and he is concerned. [facility] Medical History Asthma Borderline diabetes PTSD (post-traumatic stress disorder) Rhabdomyolysis UTI symptoms Home Medications albuterol sulfate 90 mcg/actuation aerosol inhaler (Ventolin HFA) 1 - 2 puff inhalation Q4H PRN PRN Wheezing ##1 03/11/22 [Rx Last Taken Unknown] lisinopril 10 mg tablet 10 mg PO DAILY #30 tabs 03/11/22 [Rx Last Taken Unknown] metformin 500 mg tablet 1 tablet PO DAILY 07/27/22 [History Last Taken Unknown] fluoxetine 20 mg capsule (Prozac) 20 mg PO DAILY #30 caps 09/20/22 [Rx Last Taken Unknown] doxycycline monohydrate 100 mg capsule 100 mg PO BID #14 CAPSULES 12/21/22 [Rx Last Taken Unknown] clotrimazole 1 % topical cream 1 applic topical BID 10 days #30 grams 12/29/22 [Rx Last Taken Unknown] doxycycline hyclate 100 mg tablet 100 mg PO BID #20 tabs 11/16/23 [Rx Last Taken Unknown] Allergy/AdvReac Type Severity Reaction Status Date / Time sulfamethoxazole Allergy Mild Swelling Verified 11/16/23 12:00 [From Bactrim] trimethoprim [From Bactrim] Allergy Mild Swelling Verified 11/16/23 12:00 Family History Other Alcoholism Anxiety Asthma Diabetes Kidney disease Mental disorder Surgical History Hx of hernia repair Hx of tonsillectomy Social History Smoking Status: Current every day smoker tobacco type: cigarettes and cigars alcohol intake: never substance use type: does not use ROS ROS ED ROS Narrative Constitutional: Negative for fever, chills, weight loss, weakness Eyes: Negative for vision loss, vision change, double vision ENT: Negative for any sore throat, ear pain, congestion Cardiovascular: Negative for any chest pain, tightness, palpitations Respiratory: Negative for any cough, sputum production, hemoptysis, dyspnea, dyspnea on exertion, orthopnea Gastrointestinal: Negative for any abdominal pain, nausea, vomiting, diarrhea, constipation, blood in stool, blood in vomit : Negative for any urinary frequency, dysuria, retention, blood in urine Muscle skeletal: Negative for any neck pain, back pain Neurological: Negative for any headache, syncope, dizziness Skin: Negative for any rashes, itching, abrasions, lacerations. Positive for slight skin breakdown, slight erythema, slight edema to the chin. Psychiatric: Negative for any depression, anxiety, stress, suicidal ideation, homicidal ideation Hematologic: Negative for any excessive bruising, easy bleeding EXAM Physical Exam Narrative Exam Narrative: Vital signs reviewed. HEET: Head normocephalic atraumatic, TMs clear bilaterally. Posterior pharynx is clear, moist mucous membranes. Nares clear bilaterally. Neck: Supple with no lymphadenopathy or tenderness. No signs of meningismus. Cardiac: Regular rate and rhythm no murmurs gallops or rubs, equal peripheral pulses bilaterally. Respiratory: Lungs clear to auscultation bilaterally. No chest tenderness. Abdomen: Soft, nontender, nondistended. No abdominal bruit or pulsatile masses. No hepatosplenomegaly Extremities: No peripheral edema, no signs of gross trauma or deformity. Active full range of motion of all extremities. Neuro: Cranial nerves II through XII intact, no focal neurological deficits. Skin: Clean dry and intact with no rash, purpura, petechiae, vesicles or pustules. Patient does have some skin breakdown secondary to him scrubbing his chin. There is slight erythema, no significant induration, slight cellulitis. There is no fluctuance, no significant cellulitis. There is no drainage. Savanah iemaritza has full range of motion of his jaw, no trismus. Backs/flank: No CVA tenderness, no midline spinal tenderness, no deformity. Psych: Normal mood and affect. No SI, HI or acute psychosis. Const Vital Signs: 11/16/23 11:58 Temperature 97.1 F L Temperature Source Temporal Pulse Rate 117 H Respiratory Rate 18 Blood Pressure 107/88 H Blood Pressure Mean 94 Pulse Ox 97 Oxygen Delivery Method Room Air Positive well nourished and well developed General Appearance ED: well developed MDM MDM Treatment and Re-Evaluation :: Differential diagnosis includes however is not limited to: Abscess, cellulitis, MRSA, MSSA, ingrown hair, chronic wound Patient appears generally well, patient appears nontoxic, vital signs are stable. Presenting to the emergency department for a lesion to his chin. Evaluation shows minimal cellulitis, there is no drainage, there is no significant abscess, there is no fluctuance. At this time, I do not believe that I&D is in the best interest of the patient. Patiently placed on antibiotics, he will be referred to dermatology. I did make him aware that dermatology started get into and he needs to keep the appointments. He is verbally understanding, he will take the antibiotics until finished. He was given strict return precaution. Patient stable for discharge Discharge Plan Triage Chief Complaint: Abscess ED Midlevel Provider: Gerhard Richter ED Provider: Ronit Mcgarry Dx/Rx/DC Orders Clinical Impression: Cellulitis and abscess of face Instructions: Cellulitis Dc Prescriptions: New doxycycline hyclate 100 mg tablet 100 mg PO BID Qty: 20 0RF No Action metformin 500 mg tablet 1 tablet PO DAILY fluoxetine [Prozac] 20 mg capsule 20 mg PO DAILY Qty: 30 2RF albuterol sulfate [Ventolin HFA] 1 INHALER inhaler 1 - 2 puff inhalation Q4H PRN PRN (Reason: Wheezing) Qty: 1 0RF lisinopril 10 mg tablet 10 mg PO DAILY Qty: 30 0RF doxycycline monohydrate 100 mg capsule 100 mg PO BID Qty: 14 0RF clotrimazole 1 % cream 1 applic topical BID 10 Days Qty: 30 0RF Primary Care Provider: Care Physician,No Primary Referrals: Katherine Beatty MD [Non-Staff] - Angel Chung MD [Med Staff - [place]] - Care Physician,No Primary [Primary Care Provider] - Activity Restrictions/Additional Instructions: Please follow-up with dermatology Disposition Disposition: Home, Self Care
--- OUTSIDE RECORDS SUMMARY | 2023-11-16 12:24 | XMS RPT_ITS | CCD ---
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 Name Role Phone Anshul Ronquillo MD Primary Care Provider ANSHUL RONQUILLO Primary Care Unavailab EMMETT Shipley Attending ANSHUL Savage Primary Care Unavailab EMMETT Shipley Referring Unavailable ANSHUL RONQUILLO Primary Care Unavailab JERROD Adams JR Attending Unavailable ANSHUL RONQUILLO Primary Care Unavailab PAULA Mariee Referring Unavailable ANSHUL RONQUILLO Primary Care Unavailab ANSHUL Kinsey Attending Unavailab ANSHUL Kinsey Referring Unavailab ANSHUL Kinsey Primary Care Unavailab EMI Nam Attending Unavailable ANSHUL RONQUILLO Primary Care Unavailab ANSHUL Kinsey Primary Care Unavailab ANSHUL Kinsey Attending Unavailab ANSHUL Kinsey Primary Care Unavailab MARIA GUADALUPE Rocha Referring Unavailable ANSHUL RONQUILLO Primary Care Unavailab ANSHUL Kinsey Primary Care Unavailab ANSHUL Kinsey Attending Unavailab ANSHUL Kinsey Referring Unavailab ANSHUL Kinsey Primary Care Unavailab ANSHUL Kinsey Primary Care Unavailab ANSHUL Kinsey Attending Unavailab ANSHUL Kinsey Primary Care Unavailab ANSHUL Kinsey Referring Unavailab Anshul Kinsey MD Primary Care Provider Medications Current Medications Medication Drug Class(es) Dates Sig (Normalized) Sig (Original) benoxinate hydrochloride 4 mg/ml / fluorescein sodium 2.5 mg/ml ophthalmic solution (1 source) Diagnostic Dye Start: 04-19-2022 End: 04-20-2022 fluorescein-benoxi marisabel 0.25-0.4 % 1 Drop (FLURESS) CPAP/BIPAP/OTHER (18 sources) Start: 04-09-2022 End: 08-24-2049 CPAP/BIPAP/OTHER Type .CPAPSettings into a note to see current settings/supplies/ DME information. 1 Each 0 04/09/2022 08/24/2049 Active Completed/Discontinued Medications Medication Drug Class(es) Dates Sig (Normalized) Sig (Original) [id number] 200 actuat albuterol 0.09 mg/actuat metered dose inhaler (20 sources) beta2-Adrenergic Agonist Start: 10-19-2021 End: 08-08-2022 take 2 puff(s) by inhalation every four hours as needed for wheezing albuterol HFA (VENTOLIN HFA) 90 mcg/actuation inhaler Indications: History of asthma Inhale 2 Puffs as instructed every 4 hours as needed for wheezing/shortnes s of breath. 1 Each 2 08/08/2022 Active Problems Active Problems Problem Classification Problem Date Documented Da te Episodic/Chronic Blindness and vision defects (2 sources) Bilateral myopia of eyes; Translations: [Myopia, bilateral] Episodic Cardiac dysrhythmias (1 source) Tachycardia; Translations: [Tachycardia, unspecified] Episodic Conditions associated with dizziness or vertigo (1 source) Dizziness; Translations: [Dizziness and giddiness] Episodic Diabetes mellitus without complication (6 sources) Diabetes mellitus type 2 without retinopathy; Translations: [Type 2 diabetes mellitus without complications] Onset: 09-12-2022 Chronic Disorders of lipid metabolism (6 sources) Mixed hyperlipidemia; Translations: [Mixed hyperlipidemia] Onset: 04-11-2022 Chronic Essential hypertension (6 sources) Hypertensive disorder; Translations: [Essential (primary) hypertension] Onset: 03-16-2022 Chronic Other circulatory disease (1 source) Elevated blood-pressure reading without diagnosis of hypertension; Translations: [Elevated blood-pressure reading, without diagnosis of hypertension] Episodic Other connective tissue disease (2 sources) Cramp; Translations: [Cramp and spasm] Episodic Other lower respiratory disease (1 source) H/O: asthma; Translations: [Personal history of other diseases of the respiratory system] Episodic Other nutritional; endocrine; and metabolic disorders (20 sources) Obese class II; Translations: [Obesity, unspecified] Onset: 03-16-2022 Chronic Other nutritional; endocrine; and metabolic disorders (17 sources) Obesity; Translations: [Obesity, unspecified] Onset: 04-11-2022 Chronic Other nutritional; endocrine; and metabolic disorders (2 sources) Severe obesity; Translations: [Morbid (severe) obesity due to excess calories] Chronic Other nutritional; endocrine; and metabolic disorders (1 source) Obesity, unspecified; Translations: [Obesity, Class II, BMI 35-39.9] Onset: 03-16-2022 Chronic Residual codes; unclassified (5 sources) Obstructive sleep apnea syndrome; Translations: [Obstructive sleep apnea (adult) (pediatric)] Onset: 04-11-2022 Chronic Residual codes; unclassified (14 sources) Sleep apnea; Translations: [Other sleep apnea] Onset: 04-11-2022 04-11-2022 Chronic Residual codes; unclassified (1 source) Obstructive sleep apnea (adult) (pediatric); Translations: [JULIETTE (obstructive sleep apnea)] Onset: 04-09-2022 Chronic Past or Other Problems Problem Classification Problem Date Documented Date Episodic/Chronic Acute and unspecified renal failure (3 sources) Acute injury of kidney; Translations: [Acute kidney failure, unspecified] Onset: 03-16-2022 Episodic Diabetes mellitus without complication (20 sources) Prediabetes; Translations: [Prediabetes] Onset: 04-11-2022 Episodic Genitourinary symptoms and ill-defined conditions (6 sources) Proteinuria; Translations: [Proteinuria, unspecified] Onset: 03-16-2022 Episodic Immunizations and screening for infectious disease (4 sources) At risk of sexually transmitted infection ; Translations: [Contact with and (suspected) exposure to infections with a predominantly sexual mode of transmission] Onset: 08-03-2022 Episodic Other connective tissue disease (1 source) Cramp and spasm; Translations: [Cramps, muscle, general] Onset: 03-16-2022 Episodic Residual codes; unclassified (17 sources) Tobacco use and exposure - finding; Translations: [Tobacco use] Onset: 04-11-2022 Episodic Results Test Name Value Interpretation Reference Range Facil ity Vital Signs Date Time Vital Sign Value Performing Clinician Faci lity 09-12-2022 10:41-0500 Body weight 139.25 kg Anshul Ronquillo MD Work Phone: [facility] 09-12-2022 10:41-0500 Diastolic blood pressure 86 mm[Hg] Anshul Ronquillo MD Work Phone: [facility] 09-12-2022 10:41-0500 Heart rate 68 /min Anshul Ronquillo MD Work Phone: [facility] 09-12-2022 10:41-0500 Respiratory rate 20 /min Anshul Ronquillo MD Work Phone: [facility] 09-12-2022 10:41-0500 Systolic blood pressure 136 mm[Hg] Anshul Ronquillo MD Work Phone: [facility] 08-08-2022 10:30-0500 Diastolic blood pressure 88 mm[Hg] Anshul Ronquillo MD Work Phone: [facility] 08-08-2022 10:30-0500 Systolic blood pressure 138 mm[Hg] Anshul Ronquillo MD Work Phone: [facility] 08-08-2022 10:26-0500 Body weight 138.07 kg Anshul Ronquillo MD Work Phone: [facility] 08-08-2022 10:26-0500 Heart rate 80 /min Anshul Ronquillo MD Work Phone: [facility] 08-08-2022 10:26-0500 Respiratory rate 16 /min Anshul Ronquillo MD Work Phone: [facility] 08-03-2022 10:00-0500 Body temperature 97.11 [degF] Maria Guadalupe New APRN.PRE BILLING SPECIALIST Work Phone: [facility] 08-03-2022 10:00-0500 Body weight 137.53 kg Maria Guadalupe New APRN.PRE BILLING SPECIALIST Work Phone: [facility] 08-03-2022 10:00-0500 Diastolic blood pressure 96 mm[Hg] Maria Guadalupe Shaq CHERRY GROWER.PRE BILLING SPECIALIST Work Phone: [facility] 08-03-2022 10:00-0500 Heart rate 88 /min Maria Guadalupe New CHERRY GROWER.PRE BILLING SPECIALIST Work Phone: [facility] 08-03-2022 10:00-0500 Respiratory rate 20 /min Maria Guadalupe New CHERRY GROWER.PRE BILLING SPECIALIST Work Phone: [facility] 08-03-2022 10:00-0500 SaO2% (BldA) [Mass fraction] 98 % Maria Guadalupe New CHERRY GROWER.PRE BILLING SPECIALIST Work Phone: [facility] 08-03-2022 10:00-0500 Systolic blood pressure 148 mm[Hg] Maria Guadalupe New CHERRY GROWER.PRE BILLING SPECIALIST Work Phone: [facility] 04-24-2022 09:40-0400 Body weight 128.55 kg Anshul Ronquillo MD Work Phone: [facility] 04-24-2022 09:40-0400 Diastolic blood pressure 90 mm[Hg] Anshul Ronquillo MD Work Phone: [facility] 04-24-2022 09:40-0400 Heart rate 78 /min Anshul Ronquillo MD Work Phone: [facility] 04-24-2022 09:40-0400 Respiratory rate 16 /min Anshul Ronquillo MD Work Phone: [facility] 04-24-2022 09:40-0400 SaO2% (BldA) [Mass fraction] 98 % Anshul Ronquillo MD Work Phone: [facility] 04-24-2022 09:40-0400 Systolic blood pressure 136 mm[Hg] Anshul Ronquillo MD Work Phone: [facility] 04-11-2022 09:08-0400 Diastolic blood pressure 90 mm[Hg] Anshul Ronquillo MD Work Phone: [facility] 04-11-2022 09:08-0400 Systolic blood pressure 140 mm[Hg] Anshul Ronquillo MD Work Phone: [facility] 04-11-2022 07:58-0400 Body weight 126.55 kg Anshul Ronquillo MD Work Phone: [facility] 04-11-2022 07:58-0400 Heart rate 113 /min Anshul Ronquillo MD Work Phone: [facility] 04-11-2022 07:58-0400 Respiratory rate 18 /min Anshul Ronquillo MD Work Phone: [facility] 04-11-2022 07:58-0400 SaO2% (BldA) [Mass fraction] 98 % Anshul Ronquillo MD Work Phone: [facility] 04-09-2022 10:34-0400 Body temperature 97 [degF] Jerrod Rothman Jr., MD Work Phone: [facility] 04-09-2022 10:34-0400 Body weight 128.64 kg Jerrod Rothman Jr., MD Work Phone: [facility] 04-09-2022 10:34-0400 Diastolic blood pressure 88 mm[Hg] Jerrod Rothman Jr., MD Work Phone: [facility] 04-09-2022 10:34-0400 Heart rate 76 /min Jerrod Rothman Jr., MD Work Phone: [facility] 04-09-2022 10:34-0400 Respiratory rate 20 /min Jerrod Rothman Jr., MD Work Phone: [facility] 04-09-2022 10:34-0400 SaO2% (BldA) [Mass fraction] 97 % Jerrod Rothman Jr., MD Work Phone: [facility] 04-09-2022 10:34-0400 Systolic blood pressure 142 mm[Hg] Jerrod Rothman Jr., MD Work Phone: [facility] 03-16-2022 13:43-0400 Body weight 125.65 kg Emmett Conde MD Work Phone: [facility] 03-16-2022 13:43-0400 Diastolic blood pressure 82 mm[Hg] Emmett Conde MD Work Phone: [facility] 03-16-2022 13:43-0400 Heart rate 83 /min Emmett Conde MD Work Phone: [facility] 03-16-2022 13:43-0400 SaO2% (BldA) [Mass fraction] 98 % Emmett Conde MD Work Phone: [facility] 03-16-2022 13:43-0400 Systolic blood pressure 124 mm[Hg] Emmett Conde MD Work Phone: [facility] 02-23-2022 15:11-0400 Body temperature 98.2 [degF] Jaylin Denbow PA-C Work Phone: [facility] 02-23-2022 15:11-0400 Body weight 126.55 kg Jaylin Denbow PA-C Work Phone: [facility] 02-23-2022 15:11-0400 Diastolic blood pressure 78 mm[Hg] Jaylin Denbow PA-C Work Phone: [facility] 02-23-2022 15:11-0400 Heart rate 122 /min Jaylin Denbow PA-C Work Phone: [facility] 02-23-2022 15:11-0400 Respiratory rate 16 /min Jaylin Denbow PA-C Work Phone: [facility] 02-23-2022 15:11-0400 SaO2% (BldA) [Mass fraction] 97 % Jaylin Denbow PA-C Work Phone: [facility] 02-23-2022 15:11-0400 Systolic blood pressure 132 mm[Hg] Jaylin Denbow PA-C Work Phone: [facility] Encounters Encounter Date Encounter Type Care Provider Facility Start: 11-09-2022 Telephone encounter Sesar Ronquillo MD Work Phone: [facility] [place] Procedures Date Procedure Procedure Detail Performing Clinician Start: 08-08-2022 INFLUENZA VACCINE QUADRIVALENT 6 MO - 64 YRS Anshul Ronquillo MD Work Phone: Start: 08-08-2022 Urnls dip stick/tabl et rgnt auto w/o microscopy Anshul Ronquillo MD Work Phone: Start: 08-03-2022 Urnls dip stick/tabl et reagent auto microscopy Maria Guadalupe New APRRachealPRE BILLING SPECIALIST Work Phone: Start: 08-03-2022 Urnls dip stick/tabl et rgnt auto w/o microscopy Jose Vincent MD Work Phone: Plan of Treatment Date Care Activity Detail Author Start: 04-11-2027 LIPID SCREEN LIPID SCREEN [facility] Start: 06-05-2026 LIPID SCREEN LIPID SCREEN [facility] Start: 09-12-2023 ANNUAL PCP TEAM 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 MIQUEL DISEASE VISIT ANNUAL PCP TEAM CHRONIC DISEASE VISIT [facility] Start: 09-12-2023 COVID-19 VACCINE (#1) COVID-19 VACCI NE (#1) [facility] Immunizations Immunization Date Immunization Notes Care Provider Fa vu 08-08-2022 influenza, injectabl e, quadrivalent, contains preservative Anshul Ronquillo MD Work Phone: [facility] 05-31-2021 influenza, injectabl e, quadrivalent, contains preservative Jaylin Chun PA-C Work Phone: [facility] 05-31-2021 pneumococcal polysaccharide vaccine, 23 valent Jaylin Chun PA-C Work Phone: [facility] Payers Date Payer Category Payer Medicaid [place] [employer] [facility] MEDICA[facility] [id number] 2021-Present [phone] [place] [id number] Medicaid [id number] 2021 Medicaid [id number] 2021 Medicaid [id number] Social History Date Type Detail Facility Start: 06-09-2020 End: 04-19-2022 Tobacco smoking status NHIS Smokes tobacco daily [facility] History of tobacco use Cigar Smoker [facility] Start: 06-09-2020 End: 04-19-2022 Tobacco use and exposure Smokeless tobacco non-user [facility] Start: 02-23-2022 End: 09-12-2022 Alcohol intake Current drinker of alcohol (finding) [facility] Start: 05-31-2021 History SDOH Alcohol Comment occasion [facility] Start: 05-31-2021 End: 04-19-2022 Tobacco Comment 2-3 cigars daily [facility] Start: 1985 Sex Assigned At Not on file [facility] [place] Start: 02-13-2022 End: 08-08-2022 Exposure to SARS-CoV-2 (event) Not sure [facility] Work Phone: Start: 03-16-2022 Tobacco smoking stat us NHIS Ex-smoker [facility] Medical Equipment Procedure Code Equipment Code Equipment Origin al Text Equipment Identifier Dates Test blood sugar (s) 1 times daily. Dx: Type 2 DM - Controlled E11.9 Insulin: No Start: 09-12-2022 Clinical Notes 02-23-2022 to 11-09-2022 Telephone Encounter - Hyun Don LPN - 11/09/2022 2:39 PM ESTTelephone Encounter - Mei Lara RN - 09/13/2022 8:35 AM Muriel Ronquillo MD - 09/12/2022 10:52 AM EST Note Date & Type Note Facility 11-09-2022 Miscellaneous Notes Patient calling said he is not feeling well for past 4 days, his muscles feel weak and has been coughing, said feels like has lots of mucus in his lungs, constipation problems, no fever, no nausea or vomiting. He said his blood sugar yesterday was 130, has not checked it today. His girl friend said he is feeling worse each day. Advised to go to ER for evaluation, told if goes to express care he would get sent to ER. documented in this encounter [facility] 09-13-2022 Miscellaneous Notes Patient notified of message below. Mei Lara RN Please call patient and let him know his urine results are normal. Paula Luke APRN.CNP documented in this encounter [facility] 09-12-2022 Note HNO ID: [id number] Author: Anshul Ronquillo MD Service: ? Author Type: Physician Type: Progress Notes Filed: 09/12/2022 4:39 PM Note Text: Chief Complaint Patient presents with: 1-2 month follow up DM HPI Rey White is a 37 year old male who presents here today for new diabetic visit. Patient with prediabetes until A1c elevated to 6.5 on 08/08. 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 Taking metformin as prescribed without side effects. Picked up glucometer, test strips, and lancets at [facility]. No retinopathy on eye exam 04/[address] Oliveira. Admits to occasional blurred/ strained vision. Denies polyuria, polyphagia, polydipsia, vision changes, neuropathy. Past medical history, appointments, medications, allergies reviewed. Previous Medical History PAST MEDICAL HISTORY Diagnosis Date Asthma Class 2 obesity due to excess calories with body mass index (BMI) of 35.0 to 35.9 in adult Hyperlipidemia Hypertension JULIETTE (obstructive sleep apnea) Prediabetes Tobacco use disorder Previous Surgical History PAST SURGICAL HISTORY Procedure Laterality Date LAPROSCOPIC REPAIR UMBILICAL HERNIA TONSILLECTOMY AND ADENOIDECTOMY Family History FAMILY HISTORY Problem Relation Age of Onset No Known Problems Father other (prediabetic) Mother Asthma Mother Glaucoma Maternal Grandmother Diabetes Maternal Grandmother Glaucoma Maternal Grandfather Diabetes Maternal Grandfather Glaucoma Paternal Grandmother Glaucoma Paternal Grandfather Patient Allergies ALLERGIES No Known Allergies Current Medications Current Outpatient Medications on File Prior to Visit Medication Sig albuterol HFA (VENTOLIN HFA) 90 mcg/actuation inhaler Inhale 2 Puffs as instructed every 4 hours as needed for wheezing/shortness of breath. metFORMIN (GLUCOPHAGE) 500 mg tablet Take 1 tablet by mouth twice daily with meals. CPAP/BIPAP/OTHER Type .CPAPSettings into a note to see current settings/supplies/DME information. No current facility-administered medications on file prior to visit. Social History Social History Tobacco Use Smoking status: Every Day Types: Cigars Smokeless tobacco: Never Tobacco comments: 2-3 cigars daily Vaping Use Vaping Use: Never used Substance Use Topics Alcohol use: Yes Comment: occasion Drug use: Yes Types: Marijuana Review of Symptoms REVIEW OF SYSTEMS See HPI EXAM: BP 136/86 Pulse 68 Resp 20 Wt (!) 139.3 kg (307 lb) BMI 39.19 kg/m? General Appearance: Well appearing, alert, in no acute distress, well-hydrated, well nourished.. Skin: Skin color, texture, turgor normal, no suspicious rashes or lesions. Lungs: Lungs clear to auscultation. No wheezing, rhonchi, rales.. Heart: RRR without murmur, gallop, or rubs. No ectopy. Abdomen: Normal abdominal exam, Abdomen soft, non-tender. Bowel sounds normal. No masses, organomegaly. Extremities: No deformities, edema, skin discoloration, clubbing or cyanosis. Good capillary refill. . Health Maintenance List HEPATITIS B(1 of 3 - 3-dose series) Never done DTAP,TDAP,TD(1 - Tdap) Never done PNEUMOCOCCAL(2 - PCV) due on 05/31/2022 DEPRESSION ASSESSMENT Never done COVID-19 VACCINE(1) due on 09/12/2023 LIPID SCREEN due on 04/11/2027 INFLUENZA Completed HEPATITIS C SCREENING Completed HIV SCREENING Completed Data reviewed Component Latest Ref Rng AND Units 04/11/2022 08/08/2022 Protein, Total 6.3 - 8.0 g/dL 7.8 7.4 Albumin 3.9 - 4.9 g/dL 4.8 4.3 Calcium 8.5 - 10.2 mg/dL 10.1 9.2 Bilirubin, Total 0.2 - 1.3 mg/dL 0.8 0.4 Alkaline Phosphatase 38 - 113 U/L 84 67 AST 14 - 40 U/L 28 26 ALT 10 - 54 U/L 20 23 Glucose 74 - 99 mg/dL 111 (H) 110 (H) BUN 9 - 24 mg/dL 9 14 Creatinine 0.73 - 1.22 mg/dL 1.26 (H) 1.23 (H) Sodium 136 - 144 mmol/L 136 136 Potassium 3.7 - 5.1 mmol/L 4.0 4.4 Chloride 97 - 105 mmol/L 99 103 CO2 22 - 30 mmol/L 27 23 Anion Gap 9 - 18 mmol/L 10 10 eGFR >=60 mL/min/1.73mA? 76 78 WBC 3.70 - 11.00 k/uL 7.76 RBC 4.20 - 6.00 m/uL 5.26 Hemoglobin 13.0 - 17.0 g/dL 15.6 Hematocrit 39.0 - 51.0 % 46.6 MCV 80.0 - 100.0 fL 88.6 MCH 26.0 - 34.0 pg 29.7 MCHC 30.5 - 36.0 g/dL 33.5 RDW-CV 11.5 - 15.0 % 13.1 Platelet Count 150 - 400 k/uL 225 MPV 9.0 - 12.7 fL 12.1 Absolute nRBC <0.01 k/uL <0.01 Total Cholesterol, Nonfasting <200 mg/dL 226 (H) Triglycerides, Nonfasting <150 mg/dL 233 (H) HDL Cholesterol, Nonfasting >39 mg/dL 34 (L) LDL Cholesterol, Nonfasting <100 mg/dL 145 (H) Non HDL Cholesterol, Nonfasting <130 mg/dL 192 (H) VLDL Cholesterol, Nonfasting <30 mg/dL 47 (H) Total Chol/HDL Ratio, Nonfasting <5.10 mg/dL 6.65 (H) LDL/HDL Ratio, Nonfasting <2.54 mg/dL 4.26 (H) Hemoglobin A1C 4.3 - 5.6 % 6.2 (H) 6.5 (H) Estimated Average Glucose mg/dL 131 140 ASSESSMENT/PLAN: 1. Controlled type 2 diabetes mellitus without complication, without long-term current use of insulin (HCC) - (more content not included)... [facility] 09-12-2022 History of Presen t illness Narrative Chief Complaint Patient presents with: 1-2 month follow up DM HPI Rey Victoriano White is a 37 year old male who presents here today for new diabetic visit. Patient with prediabetes until A1c elevated to 6.5 on 08/08. Discussed types of diabetes, symptoms, monitoring, treatment, prison complications. Taking metformin as prescribed without side effects. Picked up glucometer, test strips, and lancets at [facility]. No retinopathy on eye exam 04/[address] Oliveira. Admits to occasional blurred/ strained vision. Denies polyuria, polyphagia, polydipsia, vision changes, neuropathy. Past medical history, appointments, medications, allergies reviewed. Previous Medical History PAST MEDICAL HISTORY Diagnosis Date Asthma Class 2 obesity due to excess calories with body mass index (BMI) of 35.0 to 35.9 in adult Hyperlipidemia Hypertension JULIETTE (obstructive sleep apnea) Prediabetes Tobacco use disorder Previous Surgical History PAST SURGICAL HISTORY Procedure Laterality Date LAPROSCOPIC REPAIR UMBILICAL HERNIA TONSILLECTOMY & ADENOIDECTOMY <AGE 12 Family History FAMILY HISTORY Problem Relation Age of Onset No Known Problems Father other (prediabetic) Mother Asthma Mother Glaucoma Maternal Grandmother Diabetes Maternal Grandmother Glaucoma Maternal Grandfather Diabetes Maternal Grandfather Glaucoma Paternal Grandmother Glaucoma Paternal Grandfather Patient Allergies ALLERGIES No Known Allergies Current Medications Current Outpatient Medications on File Prior to Visit Medication Sig albuterol HFA (VENTOLIN HFA) 90 mcg/actuation inhaler Inhale 2 Puffs as instructed every 4 hours as needed for wheezing/shortness of breath. metFORMIN (GLUCOPHAGE) 500 mg tablet Take 1 tablet by mouth twice daily with meals. CPAP/BIPAP/OTHER Type .CPAPSettings into a note to see current settings/supplies/DME information. No current facility-administered medications on file prior to visit. Social History Social History Tobacco Use Smoking status: Every Day Types: Cigars Smokeless tobacco: Never Tobacco comments: 2-3 cigars daily Vaping Use Vaping Use: Never used Substance Use Topics Alcohol use: Yes Comment: occasion Drug use: Yes Types: Marijuana Review of Symptoms REVIEW OF SYSTEMS See HPI EXAM: BP 136/86 Pulse 68 Resp 20 Wt (!) 139.3 kg (307 lb) BMI 39.19 kg/m General Appearance: Well appearing, alert, in no acute distress, well-hydrated, well nourished.. Skin: Skin color, texture, turgor normal, no suspicious rashes or lesions. Lungs: Lungs clear to auscultation. No wheezing, rhonchi, rales.. Heart: RRR without murmur, gallop, or rubs. No ectopy. Abdomen: Normal abdominal exam, Abdomen soft, non-tender. Bowel sounds normal. No masses, organomegaly. Extremities: No deformities, edema, skin discoloration, clubbing or cyanosis. Good capillary refill. . Health Maintenance List HEPATITIS B(1 of 3 - 3-dose series) Never done DTAP,TDAP,TD(1 - Tdap) Never done PNEUMOCOCCAL(2 - PCV) due on 05/31/2022 DEPRESSION ASSESSMENT Never done COVID-19 VACCINE(1) due on 09/12/2023 LIPID SCREEN due on 04/11/2027 INFLUENZA Completed HEPATITIS C SCREENING Completed HIV SCREENING Completed Data reviewed Component Latest Ref Rng & Units 04/11/2022 08/08/2022 Protein, Total 6.3 - 8.0 g/dL 7.8 7.4 Albumin 3.9 - 4.9 g/dL 4.8 4.3 Calcium 8.5 - 10.2 mg/dL 10.1 9.2 Bilirubin, Total 0.2 - 1.3 mg/dL 0.8 0.4 Alkaline Phosphatase 38 - 113 U/L 84 67 AST 14 - 40 U/L 28 26 ALT 10 - 54 U/L 20 23 Glucose 74 - 99 mg/dL 111 (H) 110 (H) BUN 9 - 24 mg/dL 9 14 Creatinine 0.73 - 1.22 mg/dL 1.26 (H) 1.23 (H) Sodium 136 - 144 mmol/L 136 136 Potassium 3.7 - 5.1 mmol/L 4.0 4.4 Chloride 97 - 105 mmol/L 99 103 CO2 22 - 30 mmol/L 27 23 Anion Gap 9 - 18 mmol/L 10 10 eGFR >=60 mL/min/1.73m 76 78 WBC 3.70 - 11.00 k/uL 7.76 RBC 4.20 - 6.00 m/uL 5.26 Hemoglobin 13.0 - 17.0 g/dL 15.6 Hematocrit 39.0 - 51.0 % 46.6 MCV 80.0 - 100.0 fL 88.6 MCH 26.0 - 34.0 pg 29.7 MCHC 30.5 - 36.0 g/dL 33.5 RDW-CV 11.5 - 15.0 % 13.1 Platelet Count 150 - 400 k/uL 225 MPV 9.0 - 12.7 fL 12.1 Absolute nRBC <0.01 k/uL <0.01 Total Cholesterol, Nonfasting <200 mg/dL 226 (H) Triglycerides, Nonfasting <150 mg/dL 233 (H) HDL Cholesterol, Nonfasting >39 mg/dL 34 (L) LDL Cholesterol, Nonfasting <100 mg/dL 145 (H) Non HDL Cholesterol, Nonfasting <130 mg/dL 192 (H) VLDL Cholesterol, Nonfasting <30 mg/dL 47 (H) Total Chol/HDL Ratio, Nonfasting <5.10 mg/dL 6.65 (H) LDL/HDL Ratio, Nonfasting <2.54 mg/dL 4.26 (H) Hemoglobin A1C 4.3 - 5.6 % 6.2 (H) 6.5 (H) Estimated Average Glucose mg/dL 131 140 ASSESSMENT/PLAN: 1. Controlled type 2 diabetes mellitus without complication, without long-term current use of insulin (HCC) - ICD9: 250.00, ICD10: E11.9 (primary diagnosis) Controlled. - Continue current medications - Blood glucose monitoring on a once a day schedule - Ophthalmology referral for eval/management of diabetic eye changes - Encouraged regular aerobic exercise and weight loss - Follow up in 3 months, sooner should any other issues arise. - Discussed diabetic education issues of prison diabetic complications, hypoglycemic symptoms, hyperglycemic symptoms, diet, medications- side effects and need for compliance, importance of exercise, and importance of annual examinations with Opthalmology with patient. - LISINOPRIL 5 MG TABLET - ALBUMIN/CREAT RATIO RND UR - CONSULT TO DIABETES EDUCATION - HGB A1C - COMP METABOLIC PANEL - ALBUMIN/CREAT RATIO RND UR 2. Hyperlipidemia, unspecified hyperlipidemia type - ICD9: 272.4, ICD10: E78.5 - poor control - Encouraged following a low fat, low cholesterol diet. - Discussed the benefits of regular aerobic exercise and weight loss. 3. Primary hypertension - ICD9: 401.9, ICD10: I10 - good control - Continue current medication(s) - Encouraged dietary sodium restriction/DASH diet - Recommended regular aerobic exercise. - Reviewed risks of HTN and principles of treatment - Goal of BP <140/90 Anshul Ronquillo MD documented in this encounter [facility] 08-13-2022 Miscellaneous Notes Patient returns call and provider message reviewed. Patient verbalizes understanding with no further questions. Chanda Reaves RN Called and left a voicemail for the Patient to call back and ask for a nurse to receive the providers message. Glenda Solomon RN Reviewed. Recommend low carb diet and if symptoms of weakness with numbness/tingling return should go to the ED. Patient telephoned. States all the symptoms have gone away at this time and that his BS is 138 at current. Patient will continue to monitor and doesn't think he needs to be seen at this time. Tia Romero LPN Agree with ER for concern for stroke symptoms. Patient calls to report high blood sugar reading of 170 and then reports neurological symptoms. Patient reports he has concerns that he is having or might have had a stroke. Instructed patient that if he has concerns of stroke he needed to go to ED immediately. Spoke to girlfriend who reports she will make sure patient is take to hospital right away. Reason for Disposition Patient sounds very sick or weak to the triager Answer Assessment - Initial Assessment Questions 1. BLOOD GLUCOSE: 170 2. ONSET:Just now 3. USUAL RANGE: 100-130 4. KETONES: Not normally checked 5. TYPE 1 or 2: Patient reports he is borderline but not diabetic. 6. INSULIN: No 7. DIABETES PILLS: Metformin 500 mg twice daily 8. OTHER SYMPTOMS: No fever, frequent urination or difficulty breathing or vomiting. Reports dizziness, weakness, numbness to legs and hands. Trouble focusing. Feels like he can't get out of the bed. No passing out or falls but it has been close. He reports that he is concerned with stroke. Answer Assessment - Initial Assessment Questions 1. SYMPTOM: Weakness. Numbness/tingling of legs and hands. 2. ONSET: Past couple of days. 3. LAST NORMAL: Several days ago. 4. PATTERN: Constant 5. CARDIAC SYMPTOMS: No chest pain, difficulty breathing, palpitations. 6. NEUROLOGIC SYMPTOMS: No headache, vision loss, double vision, changes in speech. Reports dizziness and unsteady on feet. No falls or passing out but it has been close. 7. OTHER SYMPTOMS: Trouble focusing. Feels like he can't get OOB. Protocols used: Diabetes - High Blood [id number], Neurologic [id number] documented in this encounter [facility] 08-08-2022 Note HNO ID: [id number] Author: Anshul Ronquillo MD Service: ? Author Type: Physician Type: Progress Notes Filed: 08/08/2022 11:17 AM Note Text: Chief Complaint Patient presents with: Follow Up HPI Rey White is a 36 year old male who presents here today for [facility] follow up. Here today with his girlfriend. He's fasting today. Pt was seen in [facility] on 08/03/22 for possible STD exposure, tightness when urinating, and penile discharge. Hx of STD, Hx of Kidney injury, Hx of Diabetes. He denied any penile sores or testicular pain. Had STD testing completed and urine test done. Urine showed hematuria and pt was advised to follow up with PCP. Pt was positive for HSV-1 IgG, has hx of cold sores. All other labs were negative. Pt partner was positive for trich so pt was treated with Flagyl 500 mg 4 pills one time only dosages. Just restarted Metformin about two days ago, due to his weight gain. Notes he was having moments where his vision was blurred and he felt loopy . Checking sugars when he feels bad. States that he's in tune with his body and can feel when he's off. Has A1c pending. Would like to speak with dietitian about weight loss. JULIETTE Managed by Dr. Rothman. - Not using DME, returned this due to feeling suffocated by the pressure it was on. Has not scheduled follow up with sleep medicine for further adjustments. Past medical history, appointments, medications, allergies reviewed. Previous Medical History PAST MEDICAL HISTORY Diagnosis Date Asthma Class 2 obesity due to excess calories with body mass index (BMI) of 35.0 to 35.9 in adult Hyperlipidemia Hypertension JULIETTE (obstructive sleep apnea) Prediabetes Tobacco use disorder Previous Surgical History PAST SURGICAL HISTORY Procedure Laterality Date LAPROSCOPIC REPAIR UMBILICAL HERNIA TONSILLECTOMY AND ADENOIDECTOMY Family History FAMILY HISTORY Problem Relation Age of Onset No Known Problems Father other (prediabetic) Mother Asthma Mother Glaucoma Maternal Grandmother Diabetes Maternal Grandmother Glaucoma Maternal Grandfather Diabetes Maternal Grandfather Glaucoma Paternal Grandmother Glaucoma Paternal Grandfather Patient Allergies ALLERGIES No Known Allergies Current Medications Current Outpatient Medications on File Prior to Visit Medication Sig metFORMIN (GLUCOPHAGE) 500 mg tablet Take 1 tablet by mouth twice daily with meals. (Patient not taking: Reported on 08/03/2022) CPAP/BIPAP/OTHER Type .CPAPSettings into a note to see current settings/supplies/DME information. albuterol HFA (VENTOLIN HFA) 90 mcg/actuation inhaler Inhale 2 Puffs as instructed every 4 hours as needed for wheezing/shortness of breath. No current facility-administered medications on file prior to visit. Social History Social History Tobacco Use Smoking status: Every Day Types: Cigars Smokeless tobacco: Never Tobacco comments: 2-3 cigars daily Vaping Use Vaping Use: Never used Substance Use Topics Alcohol use: Yes Comment: occasion Drug use: Yes Types: Marijuana Review of Symptoms REVIEW OF SYSTEMS See HPI EXAM: BP 138/88 (BP Site: Right Arm, BP Position: Sitting, BP Cuff Size: Large Adult) Pulse 80 Resp 16 Wt (!) 138.1 kg (304 lb 6.4 oz) BMI 38.86 kg/m? General Appearance: Well appearing, alert, in no acute distress, well-hydrated, well nourished.. Skin: Skin color, texture, turgor normal, no suspicious rashes or lesions. Genitalia: Normal, Penis normal. No urethral discharge. Scrotum normal to palpation. No hernia.. Health Maintenance List HEPATITIS B(1 of 3 - 3-dose series) Never done COVID-19 VACCINE(1) Never done DTAP,TDAP,TD(1 - Tdap) Never done DEPRESSION ASSESSMENT Never done INFLUENZA(1) due on 05/10/2022 PNEUMOCOCCAL(2 - PCV) due on 05/31/2022 LIPID SCREEN due on 04/11/2027 HEPATITIS C SCREENING Completed HIV SCREENING Completed Data reviewed Appointment on 08/03/2022 Component Date Value Syphilis Total Screen 08/03/2022 Nonreactive Syphilis Interpretation 08/03/2022 Cannot exclude recent Treponemal infection if specimen collected within 7-10 days after appearance of suspect lesions or 2-3 weeks after an exposure. Clinical correlation is required. HIV 12 Combo (Ag/Ab) 08/03/2022 Nonreactive HIV-1/2 AB (Confirmatory) 08/03/2022 HIV Interpretation 08/03/2022 Hep C Antibody IA 08/03/2022 Negative HBsAg 08/03/2022 Negative HSV IgG 1 Qualitative 08/03/2022 Positive (A) HSV IgG 2 Qualitative 08/03/2022 Negative Protein, Total 08/03/2022 7.6 Albumin 08/03/2022 4.4 Calcium, Total 08/03/2022 9.3 Bilirubin, Total 08/03/2022 0.3 Alkaline Phosphatase 08/03/2022 85 AST 08/03/2022 24 ALT 08/03/2022 21 Glucose 08/03/2022 141 (A) BUN 08/03/2022 14 Creatinine 08/03/2022 1.25 (A) Sodium 08/03/2022 137 Potassium 08/03/2022 4.5 Chloride 08/03/2022 105 CO2 08/03/2022 20 (A) Anion Gap 08/03/2022 12 (more content not included)... [facility] 08-08-2022 History of Presen t illness Narrative Chief Complaint Patient presents with: Follow Up HPI Rey White is a 36 year old male who presents here [facility]. Here today with his girlfriend. He's fasting today. [facility]22 for possible STD exposure, tightness when urinating, and penile discharge. Hx of STD, Hx of Kidney injury, Hx of Diabetes. He denied any penile sores or testicular pain. Had STD testing completed and urine test done. Urine showed hematuria and pt was advised to follow up with PCP. Pt was positive for HSV-1 IgG, has hx of cold sores. All other labs were negative. Pt partner was positive for trich so pt was treated with Flagyl 500 mg 4 pills one time only dosages. Just restarted Metformin about two days ago, due to his weight gain. Notes he was having moments where his vision was blurred and he felt loopy . Checking sugars when he feels bad. States that he's in tune with his body and can feel when he's off. Has A1c pending. Would like to speak with dietitian about weight loss. JULIETTE Managed by Dr. Rothman. - Not using DME, returned this due to feeling suffocated by the pressure it was on. Has not scheduled follow up with sleep medicine for further adjustments. Past medical history, appointments, medications, allergies reviewed. Previous Medical History PAST MEDICAL HISTORY Diagnosis Date Asthma Class 2 obesity due to excess calories with body mass index (BMI) of 35.0 to 35.9 in adult Hyperlipidemia Hypertension JULIETTE (obstructive sleep apnea) Prediabetes Tobacco use disorder Previous Surgical History PAST SURGICAL HISTORY Procedure Laterality Date LAPROSCOPIC REPAIR UMBILICAL HERNIA TONSILLECTOMY & ADENOIDECTOMY <AGE 12 Family History FAMILY HISTORY Problem Relation Age of Onset No Known Problems Father other (prediabetic) Mother Asthma Mother Glaucoma Maternal Grandmother Diabetes Maternal Grandmother Glaucoma Maternal Grandfather Diabetes Maternal Grandfather Glaucoma Paternal Grandmother Glaucoma Paternal Grandfather Patient Allergies ALLERGIES No Known Allergies Current Medications Current Outpatient Medications on File Prior to Visit Medication Sig metFORMIN (GLUCOPHAGE) 500 mg tablet Take 1 tablet by mouth twice daily with meals. (Patient not taking: Reported on 08/03/2022) CPAP/BIPAP/OTHER Type .CPAPSettings into a note to see current settings/supplies/DME information. albuterol HFA (VENTOLIN HFA) 90 mcg/actuation inhaler Inhale 2 Puffs as instructed every 4 hours as needed for wheezing/shortness of breath. No current facility-administered medications on file prior to visit. Social History Social History Tobacco Use Smoking status: Every Day Types: Cigars Smokeless tobacco: Never Tobacco comments: 2-3 cigars daily Vaping Use Vaping Use: Never used Substance Use Topics Alcohol use: Yes Comment: occasion Drug use: Yes Types: Marijuana Review of Symptoms REVIEW OF SYSTEMS See HPI EXAM: BP 138/88 (BP Site: Right Arm, BP Position: Sitting, BP Cuff Size: Large Adult) Pulse 80 Resp 16 Wt (!) 138.1 kg (304 lb 6.4 oz) BMI 38.86 kg/m General Appearance: Well appearing, alert, in no acute distress, well-hydrated, well nourished.. Skin: Skin color, texture, turgor normal, no suspicious rashes or lesions. Genitalia: Normal, Penis normal. No urethral discharge. Scrotum normal to palpation. No hernia.. Health Maintenance List HEPATITIS B(1 of 3 - 3-dose series) Never done COVID-19 VACCINE(1) Never done DTAP,TDAP,TD(1 - Tdap) Never done DEPRESSION ASSESSMENT Never done INFLUENZA(1) due on 05/10/2022 PNEUMOCOCCAL(2 - PCV) due on 05/31/2022 LIPID SCREEN due on 04/11/2027 HEPATITIS C SCREENING Completed HIV SCREENING Completed Data reviewed Appointment on 08/03/2022 Component Date Value Syphilis Total Screen 08/03/2022 Nonreactive Syphilis Interpretation 08/03/2022 Cannot exclude recent Treponemal infection if specimen collected within 7-10 days after appearance of suspect lesions or 2-3 weeks after an exposure. Clinical correlation is required. HIV 12 Combo (Ag/Ab) 08/03/2022 Nonreactive HIV-1/2 AB (Confirmatory) 08/03/2022 HIV Interpretation 08/03/2022 Hep C Antibody IA 08/03/2022 Negative HBsAg 08/03/2022 Negative HSV IgG 1 Qualitative 08/03/2022 Positive (A) HSV IgG 2 Qualitative 08/03/2022 Negative Protein, Total 08/03/2022 7.6 Albumin 08/03/2022 4.4 Calcium, Total 08/03/2022 9.3 Bilirubin, Total 08/03/2022 0.3 Alkaline Phosphatase 08/03/2022 85 AST 08/03/2022 24 ALT 08/03/2022 21 Glucose 08/03/2022 141 (A) BUN 08/03/2022 14 Creatinine 08/03/2022 1.25 (A) Sodium 08/03/2022 137 Potassium 08/03/2022 4.5 Chloride 08/03/2022 105 CO2 08/03/2022 20 (A) Anion Gap 08/03/2022 12 Estimated Glomerular Gray* 08/03/2022 77 Office Visit on 08/03/2022 Component Date Value GLUCOSE UA (POCT) 08/03/2022 Negative BILIRUBIN UA (POCT) 08/03/2022 Negative KETONE UA (POCT) 08/03/2022 Negative SPECIFIC GRAVITY UA (POC* 08/03/2022 >=1.030 HEMOGLOBIN/BLOOD UA (PO* 08/03/2022 Small (A) PH UA (POCT) 08/03/2022 5.5 PROTEIN UA (POCT) 08/03/2022 Negative UROBILINOGEN UA (POCT) 08/03/2022 0.2 NITRITE UA (POCT) 08/03/2022 Negative LEUKOCYTES UA (POCT) 08/03/2022 Negative COLOR UA (POCT) 08/03/2022 Yellow CLARITY UA (POCT) 08/03/2022 Clear GC Amplification 08/03/2022 Negative for Neisseria gonorrhoeae by amplification Chlamydia Amplification 08/03/2022 Negative for Chlamydia trachomatis by amplification Color 08/03/2022 Light Yellow Clarity 08/03/2022 Clear Glucose, Urine 08/03/2022 Negative Bilirubin, Urine 08/03/2022 Negative Ketones, Urine 08/03/2022 Negative Specific [place], Ur 08/03/2022 1.021 Hemoglobin/Blood,Ur 08/03/2022 1+ (A) pH, Urine 08/03/2022 5.5 Protein, Urine 08/03/2022 Negative Urobilinogen 08/03/2022 Negative Nitrites 08/03/2022 Negative Leuk Esterase 08/03/2022 Negative WBC, Urine 08/03/2022 0-5 /HPF RBC, Urine 08/03/2022 3-5 /HPF (A) Squamous Epithelial Cells 08/03/2022 Few Culture, Urine 08/03/2022 <10,000 CFU/ml Normal urogenital supriya Component Latest Ref Rng & Units 08/03/2022 Protein, Total 6.3 - 8.0 g/dL 7.6 Albumin 3.9 - 4.9 g/dL 4.4 Calcium 8.5 - 10.2 mg/dL 9.3 Bilirubin, Total 0.2 - 1.3 mg/dL 0.3 Alkaline Phosphatase 38 - 113 U/L 85 AST 14 - 40 U/L 24 ALT 10 - 54 U/L 21 Glucose 74 - 99 mg/dL 141 (H) BUN 9 - 24 mg/dL 14 Creatinine 0.73 - 1.22 mg/dL 1.25 (H) Sodium 136 - 144 mmol/L 137 Potassium 3.7 - 5.1 mmol/L 4.5 Chloride 97 - 105 mmol/L 105 CO2 22 - 30 mmol/L 20 (L) Anion Gap 9 - 18 mmol/L 12 eGFR >=60 mL/min/1.73m 77 Color Yellow Light Yellow Clarity Clear Clear Glucose, Urine Negative Negative Bilirubin, Urine Negative Negative Ketones, Urine Negative Negative Specific [place], Ur 1.005 - 1.030 1.021 Hemoglobin/Blood,Ur Negative 1+ (A) pH, Urine 5.0 - 8.0 5.5 Protein, Urine Negative Negative Urobilinogen Negative Negative Nitrites Negative Negative Leukest Negative Negative WBC, Urine 0-5 /HPF 0-5 /HPF RBC, Urine 0-3 /HPF 3-5 /HPF (A) Epithelial Cells /HPF Few GLUCOSE UA (POCT) Negative mg/dL Negative BILIRUBIN UA (POCT) Negative Negative KETONE UA (POCT) Negative mg/dL Negative SPECIFIC GRAVITY UA (POCT) 1.005 - 1.030 >=1.030 HEMOGLOBIN/BLOOD UA (POCT) Negative Small (A) PH UA (POCT) 4.5 - 8.0 5.5 PROTEIN UA (POCT) Negative mg/dL Negative UROBILINOGEN UA (POCT) Normal E.U./dL 0.2 NITRITE UA (POCT) Negative Negative LEUKOCYTES UA (POCT) Negative Negative COLOR UA (POCT) Yellow CLARITY UA (POCT) Clear HIV 12 Combo (Ag/Ab) Nonreactive Nonreactive HIV 1/2 Ab HIV Interpretation GC Amplification Negative for Neisseria gonorrhoeae by amplification Negative for Neisseria gonorrhoeae by amplification Chlamydia Amplification Negative for Chlamydia trachomatis by amplificaton Negative for Chlamydia trachomatis by amplification Syphilis Screen Result Nonreactive Nonreactive Syphilis Interpretation Cannot exclude recent Treponemal infection if specimen collected within 7-10 days after appearance of suspect lesions or 2-3 weeks after an exposure. Clinical correlation is required. HSV IgG 1 Qualitative Negative Positive (A) HSV IgG 2 Qualitative Negative Negative Culture <10,000 CFU/ml Normal urogenital supriya Hep C Antibody IA Negative Negative Hep B Surface Ag Negative Negative Component Latest Ref Rng & Units 08/08/2022 GLUCOSE UA (POCT) Negative mg/dL Negative BILIRUBIN UA (POCT) Negative Negative KETONE UA (POCT) Negative mg/dL Negative SPECIFIC GRAVITY UA (POCT) 1.005 - 1.030 >=1.030 HEMOGLOBIN/BLOOD UA (POCT) Negative Small (A) PH UA (POCT) 4.5 - 8.0 5.5 PROTEIN UA (POCT) Negative mg/dL Negative UROBILINOGEN UA (POCT) Normal E.U./dL 0.2 NITRITE UA (POCT) Negative Negative LEUKOCYTES UA (POCT) Negative Negative COLOR UA (POCT) Yellow CLARITY UA (POCT) Clear ASSESSMENT/PLAN: 1. Trichomonas contact, treated - ICD9: V01.6, ICD10: Z20.2 (primary diagnosis) Treated appropriately with flagyl. Discussed no recommendation for males for repeat testing unless he develops urinary symptoms. Would have his partner rechecked in 3 months. She has completed her treatment as well. 2. Hx of hematuria - ICD9: V13.09, ICD10: Z87.448 Urine culture negative in UC. Blood likely 2/2 recent infection with trich. Push PO fluids and will recheck at future OV. - UA DIP B/O 3. History of asthma - ICD9: V12.69, ICD10: Z87.09 Requesting refill on albuterol. - ALBUTEROL SULFATE HFA 90 MCG/ACTUATION AEROSOL INHALER 4. Prediabetes - ICD9: 790.29, ICD10: R73.03 Patient to have previously ordered A1c and CMP done today. Needs to continue on metformin and work on weight loss. Will f/u in 1-2 months. 5. Class 2 severe obesity due to excess calories with serious comorbidity and body mass index (BMI) of 38.0 to 38.9 in adult ([facility]) - ICD9: 278.01, V85.38, ICD10: E66.01, Z68.38 Weight increasing - Behavioral intervention and - Medical nutrition therapy with dietitian - CONSULT TO NUTRITION THERAPY 6. Other sleep apnea - ICD9: 327.29, ICD10: G47.39 Non compliant with CPAP. Discussed need to schedule f/u with sleep medicine to see if they can get him a new machine and adjust his settings. 7. Need for influenza vaccination - ICD9: V04.81, ICD10: Z23 - INFLUENZA VACCINE QUADRIVALENT 6 MO - 64 YRS IM Anshul Ronquillo MD documented in this encounter [facility] 08-07-2022 Miscellaneous Notes Phoned patient this evening to advise of 4th no call no show appointment ( no letter sent for missed 04/18/22 appt) Patient apologized for missed appointment. Informed him if he can't make the appointment to call before appointment time. Patient voiced understanding regarding he could be asked to find a provider outside of [facility] if he had another no call no show in 12 month period. documented in this encounter [facility] 08-04-2022 Miscellaneous Notes Patient calls in. He was here yesterday along with his girlfriend His girlfriend tested positive for TRICHOMONAS. Patient himself was not tested for trich (other tests resulted negative) He is having symptoms and requesting treatment. Will cover patient and RX sent in. documented in this encounter [facility] 08-04-2022 Miscellaneous Notes Reason for Call: Rx request for antibiotic. Outcome: [facility] states they are calling in antibiotic Rx to pharmacy on file, [facility] in [place]. RN called patient back and states understanding. Phone # to pharmacy provided to patient. Patient calling with medication request. Patient denies any new or worsening symptoms of which a provider is not aware: Yes. Patient's partner tested positive for trich and calling to see if he was tested as well. Patient does not appear to have been tested for trich and was told since his partner was positive to get tested himself. Patient is calling to see if a Rx for the antibiotic can be called into a pharmacy since he is having symptoms still including penile discharge. documented in this encounter [facility] 08-03-2022 Note HNO ID: [id number] Author: Maria Guadalupe New APRN.PRE BILLING SPECIALIST Service: ? Author Type: Nurse Practitioner Type: Progress Notes Filed: 08/03/2022 10:46 AM Note Text: Subjective HPI HPI Rey White is a 36 year old male who presents today for CC of possible std exposure, tightness when urinates. This started 1 week ago. Has tried nothing for relief. Symptoms are worsened by nothing. Risk factors possible std expousure. Hx of std. Hx of kidney injury. Hx of diabetes. Denies penile sore, discharge, testicular pain. .Patient presents with: STD: check PAST MEDICAL HISTORY Diagnosis Date Asthma Class 2 obesity due to excess calories with body mass index (BMI) of 35.0 to 35.9 in adult Hyperlipidemia Hypertension JULIETTE (obstructive sleep apnea) Prediabetes Tobacco use disorder PAST SURGICAL HISTORY Procedure Laterality Date LAPROSCOPIC REPAIR UMBILICAL HERNIA TONSILLECTOMY AND ADENOIDECTOMY ALLERGIES Patient has no known allergies. MEDICATIONS CPAP/BIPAP/OTHER Type .CPAPSettings into a note to see current settings/supplies/DME information. albuterol HFA (VENTOLIN HFA) 90 mcg/actuation inhaler Inhale 2 Puffs as instructed every 4 hours as needed for wheezing/shortness of breath. metFORMIN (GLUCOPHAGE) 500 mg tablet Take 1 tablet by mouth twice daily with meals. (Patient not taking: Reported on 08/03/2022) FAMILY HISTORY Problem Relation Age of Onset No Known Problems Father other (prediabetic) Mother Asthma Mother Glaucoma Maternal Grandmother Diabetes Maternal Grandmother Glaucoma Maternal Grandfather Diabetes Maternal Grandfather Glaucoma Paternal Grandmother Glaucoma Paternal Grandfather Social History Tobacco Use Smoking status: Every Day Types: Cigars Smokeless tobacco: Never Tobacco comments: 2-3 cigars daily Vaping Use Vaping Use: Never used Substance Use Topics Alcohol use: Yes Comment: occasion Drug use: Yes Types: Marijuana Review of Systems Constitutional: Negative for chills, fever and weight loss. Respiratory: Negative for cough, shortness of breath and wheezing. Cardiovascular: Negative for chest pain and palpitations. Gastrointestinal: Negative for abdominal pain, blood in stool, constipation, diarrhea, heartburn, melena, nausea and vomiting. Genitourinary: Negative for dysuria, flank pain, frequency, hematuria and urgency. Objective Blood pressure 148/96, pulse 88, temperature 36.2 ?C (97.1 ?F), resp. rate 20, weight (!) 137.5 kg (303 lb 3.2 oz), SpO2 98 %. Physical Exam Constitutional: General: He is not in acute distress. Appearance: Normal appearance. He is not toxic-appearing. Cardiovascular: Rate and Rhythm: Normal rate and regular rhythm. Heart sounds: Normal heart sounds. Pulmonary: Effort: Pulmonary effort is normal. Breath sounds: Normal breath sounds. Abdominal: General: Bowel sounds are normal. Palpations: Abdomen is soft. Tenderness: There is no abdominal tenderness. Skin: General: Skin is warm and dry. ASSESSMENT/PLAN: 1. Possible exposure to STD - ICD9: V01.6, ICD10: Z20.2 (primary diagnosis) Test for below, call results, tx per results - SYPHILIS TOTAL W/REFLEX - HIV 1 2 COMBO(AG/AB),WITH REFLEX TO DIFFERENTIATION - HEP C AB IA W/CONF SCRN - HEP B SURF AG SCRN - GC/CHLAMYDIA AMPLIF, URINE - HERPES SIMPLEX TYPE 1 AND 2 IG - URINE CULTURE 2. Penile discharge - ICD9: 788.7, ICD10: R36.9 - UA DIP, URINE (POC) 3. Gross hematuria - ICD9: 599.71, ICD10: R31.0 Testing ordered Will schedule recheck with pcp next week. - URINALYSIS, WITH MICROSCOPIC - COMP METABOLIC PANEL - URINE CULTURE Maria Guadalupe New APRN.PRE BILLING SPECIALIST [facility] 08-03-2022 History of Presen t illness Narrative Subjective HPI HPI Rey White is a 36 year old male who presents today for CC of possible std exposure, tightness when urinates. This started 1 week ago. Has tried nothing for relief. Symptoms are worsened by nothing. Risk factors possible std expousure. Hx of std. Hx of kidney injury. Hx of diabetes. Denies penile sore, discharge, testicular pain. .Patient presents with: STD: check PAST MEDICAL HISTORY Diagnosis Date Asthma Class 2 obesity due to excess calories with body mass index (BMI) of 35.0 to 35.9 in adult Hyperlipidemia Hypertension JULIETTE (obstructive sleep apnea) Prediabetes Tobacco use disorder PAST SURGICAL HISTORY Procedure Laterality Date LAPROSCOPIC REPAIR UMBILICAL HERNIA TONSILLECTOMY & ADENOIDECTOMY <AGE 12 ALLERGIES Patient has no known allergies. MEDICATIONS CPAP/BIPAP/OTHER Type .CPAPSettings into a note to see current settings/supplies/DME information. albuterol HFA (VENTOLIN HFA) 90 mcg/actuation inhaler Inhale 2 Puffs as instructed every 4 hours as needed for wheezing/shortness of breath. metFORMIN (GLUCOPHAGE) 500 mg tablet Take 1 tablet by mouth twice daily with meals. (Patient not taking: Reported on 08/03/2022) FAMILY HISTORY Problem Relation Age of Onset No Known Problems Father other (prediabetic) Mother Asthma Mother Glaucoma Maternal Grandmother Diabetes Maternal Grandmother Glaucoma Maternal Grandfather Diabetes Maternal Grandfather Glaucoma Paternal Grandmother Glaucoma Paternal Grandfather Social History Tobacco Use Smoking status: Every Day Types: Cigars Smokeless tobacco: Never Tobacco comments: 2-3 cigars daily Vaping Use Vaping Use: Never used Substance Use Topics Alcohol use: Yes Comment: occasion Drug use: Yes Types: Marijuana Review of Systems Constitutional: Negative for chills, fever and weight loss. Respiratory: Negative for cough, shortness of breath and wheezing. Cardiovascular: Negative for chest pain and palpitations. Gastrointestinal: Negative for abdominal pain, blood in stool, constipation, diarrhea, heartburn, melena, nausea and vomiting. Genitourinary: Negative for dysuria, flank pain, frequency, hematuria and urgency. Objective Blood pressure 148/96, pulse 88, temperature 36.2 C (97.1 F), resp. rate 20, weight (!) 137.5 kg (303 lb 3.2 oz), SpO2 98 %. Physical Exam Constitutional: General: He is not in acute distress. Appearance: Normal appearance. He is not toxic-appearing. Cardiovascular: Rate and Rhythm: Normal rate and regular rhythm. Heart sounds: Normal heart sounds. Pulmonary: Effort: Pulmonary effort is normal. Breath sounds: Normal breath sounds. Abdominal: General: Bowel sounds are normal. Palpations: Abdomen is soft. Tenderness: There is no abdominal tenderness. Skin: General: Skin is warm and dry. ASSESSMENT/PLAN: 1. Possible exposure to STD - ICD9: V01.6, ICD10: Z20.2 (primary diagnosis) Test for below, call results, tx per results - SYPHILIS TOTAL W/REFLEX - HIV 1 2 COMBO(AG/AB),WITH REFLEX TO DIFFERENTIATION - HEP C AB IA W/CONF SCRN - HEP B SURF AG SCRN - GC/CHLAMYDIA AMPLIF, URINE - HERPES SIMPLEX TYPE 1 AND 2 IG - URINE CULTURE 2. Penile discharge - ICD9: 788.7, ICD10: R36.9 - UA DIP, URINE (POC) 3. Gross hematuria - ICD9: 599.71, ICD10: R31.0 Testing ordered Will schedule recheck with pcp next week. - URINALYSIS, WITH MICROSCOPIC - COMP METABOLIC PANEL - URINE CULTURE Maria Guadalupe New APRN.PRE BILLING SPECIALIST documented in this encounter [facility] 06-22-2022 Miscellaneous Notes ADDIE Rothman: Received fax from [employer]. Patient returned [employer] today. He was [facility] 04/23/22. Patient stated he could not tolerate the pressure & machine was set wrong. Staff verified the settings matched script. Total use since set up 04/23 was 4 HR. Insurance requires patient to become compliant within first 90 days. He met 0% compliance. Please advise. Hina Alas MA documented in this encounter [facility] 04-27-2022 Miscellaneous Notes Addressed at OV 04/24/2022. Chanda Reaves RN I will talk with him about this tomorrow, but none of his current medical diagnoses in his chart would require him to be off of work for any length of time, let alone an entire month. Pt called back and message below given. Pt upset and states he has issues that need to be addressed muscle spasms that will affect is whole body, kidney issues and not certain what he was dx with this. Also sugar issues. Pt states requesting to be off for a month to get everything straightened out. Apt has been booked for 04-24-22 for 40 minutes with pcp. Faviola Tineo LPN Call placed to patient with no answer. Message left to call back and ask to speak to a triage nurse to receive providers message. Chanda Reaves RN Attempted to contact patient x 2 with no answer and not able to leave a voicemail. Will try again later. Chanda Reaves RN He is not a diabetic based on the records I have. Last A1C in prediabetic range. He needs to work on healthy diet and exercise. He can do this and still work his job, so letter would not be appropriate. Patient calls to ask provider if he would be willing to write a letter for patient to be off work for about a month to get his diabetes and health concerns under control. 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 Patient reports he will pick letter up in medical records if provider agreeable. Asked patient if he needed [place] paperwork filled out and he states no just a statement/letter with a beginning and end date. Phone number for further questions is [phone]. Chanda Reaves RN documented in this encounter [facility] 04-24-2022 Note HNO ID: [id number] Author: Anshul Ronquillo MD Service: ? Author Type: Physician Type: Progress Notes Filed: 04/24/2022 11:12 AM Note Text: Chief Complaint Patient presents with: Follow Up: Wants to address whats going on. What did the lab work tell MD. Work not wanting him back until figure out what's wrong with him. Hands cramping up. As soon as he starts sweating issues begin. Kidney failure? Started he had an irregular heart beat. 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 Patient reports he jumped from MD to MD when in [place] so records difficult to obtain. Consult: nephrology HPI Rey White is a 36 year old male who presents here today for Above Complaints.. Patient's recent CMP showed mild PARMJIT. Normal CMP in March. States since his last OV he has been drinking more water, but admits to regular use of NSAIDs and had been taking some salt tablets because he was getting cramps in his arms, legs, and abdomen. 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 Takes a gallon jug of water with him to work, but sweats profusely due to physical work. Past medical history, appointments, medications, allergies reviewed. Previous Medical History PAST MEDICAL HISTORY Diagnosis Date Asthma Class 2 obesity due to excess calories with body mass index (BMI) of 35.0 to 35.9 in adult Hyperlipidemia Hypertension JULIETTE (obstructive sleep apnea) Prediabetes Tobacco use disorder Previous Surgical History PAST SURGICAL HISTORY Procedure Laterality Date LAPROSCOPIC REPAIR UMBILICAL HERNIA TONSILLECTOMY AND ADENOIDECTOMY Family History FAMILY HISTORY Problem Relation Age of Onset No Known Problems Father other (prediabetic) Mother Asthma Mother Glaucoma Maternal Grandmother Diabetes Maternal Grandmother Glaucoma Maternal Grandfather Diabetes Maternal Grandfather Glaucoma Paternal Grandmother Glaucoma Paternal Grandfather Patient Allergies ALLERGIES No Known Allergies Current Medications Current Outpatient Medications on File Prior to Visit Medication Sig metFORMIN (GLUCOPHAGE) 500 mg tablet Take 1 tablet by mouth twice daily with meals. CPAP/BIPAP/OTHER Type .CPAPSettings into a note to see current settings/supplies/DME information. albuterol HFA (VENTOLIN HFA) 90 mcg/actuation inhaler Inhale 2 Puffs as instructed every 4 hours as needed for wheezing/shortness of breath. No current facility-administered medications on file prior to visit. Social History Social History Tobacco Use Smoking status: Every Day Types: Cigars Smokeless tobacco: Never Tobacco comments: 2-3 cigars daily Vaping Use Vaping Use: Never used Substance Use Topics Alcohol use: Yes Comment: occasion Drug use: Not Currently Review of Symptoms REVIEW OF SYSTEMS See HPI EXAM: BP 136/90 Pulse 78 Resp 16 Wt 128.5 kg (283 lb 6.4 oz) SpO2 98% BMI 36.18 kg/m? General Appearance: Well appearing, alert, in no acute distress, well-hydrated, well nourished.. Skin: Skin color, texture, turgor normal, no suspicious rashes or lesions. Lungs: Lungs clear to auscultation. No wheezing, rhonchi, rales.. Heart: RRR without murmur, gallop, or rubs. No ectopy. Abdomen: Normal abdominal exam, Abdomen soft, non-tender. Bowel sounds normal. No masses, organomegaly. Musculoskeletal: No joint swelling, deformity, or tenderness. Health Maintenance List HEPATITIS B(1 of 3 - 3-dose series) Never done DEPRESSION SCREENING Never done DTAP,TDAP,TD(1 - Tdap) Never done COVID-19 VACCINE(1) due on 05/31/2022 INFLUENZA(1) due on 05/10/2022 PNEUMOCOCCAL(2 - PCV) due on 05/31/2022 LIPID SCREEN due on 04/11/2027 HEPATITIS C SCREENING Completed HIV SCREENING Completed Data reviewed Component Latest Ref Rng AND Units 04/11/2022 Protein, Total 6.3 - 8.0 g/dL 7.8 Albumin 3.9 - 4.9 g/dL 4.8 Calcium 8.5 - 10.2 mg/dL 10.1 Bilirubin, Total 0.2 - 1.3 mg/dL 0.8 Alkaline Phosphatase 38 - 113 U/L 84 AST 14 - 40 U/L 28 ALT 10 - 54 U/L 20 Glucose 74 - 99 mg/dL 111 (H) BUN 9 - 24 mg/dL 9 Creatinine 0.73 - 1.22 mg/dL 1.26 (H) Sodium 136 - 144 mmol/L 136 Potassium 3.7 - 5.1 mmol/L 4.0 Chloride 97 - 105 mmol/L 99 CO2 22 - 30 mmol/L 27 Anion Gap 9 - 18 mmol/L 10 eGFR >=60 mL/min/1.73m? 76 WBC 3.70 - 11.00 k/uL 7.76 RBC 4.20 - 6.00 m/uL 5.26 Hemoglobin 13.0 - 17.0 g/dL 15.6 Hematocrit 39.0 - 51.0 % 46.6 MCV 80.0 - 100.0 fL 88.6 MCH 26.0 - 34.0 pg 29.7 MCHC 30.5 - 36.0 g/dL 33.5 RDW-CV 11.5 - 15.0 % 13.1 Platelet Count 150 - 400 k/uL 225 MPV 9.0 - 12.7 fL 12.1 Absolute nRBC <0.01 k/uL <0.01 Total Cholesterol, Nonfasting <200 mg/dL 226 (H) Triglycerides, Nonfasting <150 mg/dL 233 (H) HDL Cholesterol, Nonfasting >39 mg/dL 34 (L) LDL Cholesterol, Nonfasting <100 mg/dL 145 (H) Non HDL Cholesterol, Nonfasting <130 mg/dL 192 (H) VLDL Cholesterol, Nonfasting <30 mg/dL 47 (H) Total Chol/HDL Ratio, Nonfasting <5. (more content not included)... [facility] 04-24-2022 Instructions Anshul Ronquillo MD - 04/24/2022 10:18 AM EDT For your kidneys, stick to low sodium diet <2,000 mg per day, avoid NSAIDs (ibuprofen and Aleve), and continue to drink more fluids. documented in this encounter [facility] 04-24-2022 History of Presen t illness Narrative Chief Complaint Patient presents with: Follow Up: Wants to address whats going on. What did the lab work tell MD. Work not wanting him back until figure out what's wrong with him. Hands cramping up. As soon as he starts sweating issues begin. Kidney failure? Started he had an irregular heart beat. 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 Patient reports he jumped from MD to MD when in [place] so records difficult to obtain. Consult: nephrology HPI Rey White is a 36 year old male who presents here today for Above Complaints.. Patient's recent CMP showed mild PARMJIT. Normal CMP in March. States since his last OV he has been drinking more water, but admits to regular use of NSAIDs and had been taking some salt tablets because he was getting cramps in his arms, legs, and abdomen. 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 Takes a gallon jug of water with him to work, but sweats profusely due to physical work. Past medical history, appointments, medications, allergies reviewed. Previous Medical History PAST MEDICAL HISTORY Diagnosis Date Asthma Class 2 obesity due to excess calories with body mass index (BMI) of 35.0 to 35.9 in adult Hyperlipidemia Hypertension JULIETTE (obstructive sleep apnea) Prediabetes Tobacco use disorder Previous Surgical History PAST SURGICAL HISTORY Procedure Laterality Date LAPROSCOPIC REPAIR UMBILICAL HERNIA TONSILLECTOMY & ADENOIDECTOMY <AGE 12 Family History FAMILY HISTORY Problem Relation Age of Onset No Known Problems Father other (prediabetic) Mother Asthma Mother Glaucoma Maternal Grandmother Diabetes Maternal Grandmother Glaucoma Maternal Grandfather Diabetes Maternal Grandfather Glaucoma Paternal Grandmother Glaucoma Paternal Grandfather Patient Allergies ALLERGIES No Known Allergies Current Medications Current Outpatient Medications on File Prior to Visit Medication Sig metFORMIN (GLUCOPHAGE) 500 mg tablet Take 1 tablet by mouth twice daily with meals. CPAP/BIPAP/OTHER Type .CPAPSettings into a note to see current settings/supplies/DME information. albuterol HFA (VENTOLIN HFA) 90 mcg/actuation inhaler Inhale 2 Puffs as instructed every 4 hours as needed for wheezing/shortness of breath. No current facility-administered medications on file prior to visit. Social History Social History Tobacco Use Smoking status: Every Day Types: Cigars Smokeless tobacco: Never Tobacco comments: 2-3 cigars daily Vaping Use Vaping Use: Never used Substance Use Topics Alcohol use: Yes Comment: occasion Drug use: Not Currently Review of Symptoms REVIEW OF SYSTEMS See HPI EXAM: BP 136/90 Pulse 78 Resp 16 Wt 128.5 kg (283 lb 6.4 oz) SpO2 98% BMI 36.18 kg/m General Appearance: Well appearing, alert, in no acute distress, well-hydrated, well nourished.. Skin: Skin color, texture, turgor normal, no suspicious rashes or lesions. Lungs: Lungs clear to auscultation. No wheezing, rhonchi, rales.. Heart: RRR without murmur, gallop, or rubs. No ectopy. Abdomen: Normal abdominal exam, Abdomen soft, non-tender. Bowel sounds normal. No masses, organomegaly. Musculoskeletal: No joint swelling, deformity, or tenderness. Health Maintenance List HEPATITIS B(1 of 3 - 3-dose series) Never done DEPRESSION SCREENING Never done DTAP,TDAP,TD(1 - Tdap) Never done COVID-19 VACCINE(1) due on 05/31/2022 INFLUENZA(1) due on 05/10/2022 PNEUMOCOCCAL(2 - PCV) due on 05/31/2022 LIPID SCREEN due on 04/11/2027 HEPATITIS C SCREENING Completed HIV SCREENING Completed Data reviewed Component Latest Ref Rng & Units 04/11/2022 Protein, Total 6.3 - 8.0 g/dL 7.8 Albumin 3.9 - 4.9 g/dL 4.8 Calcium 8.5 - 10.2 mg/dL 10.1 Bilirubin, Total 0.2 - 1.3 mg/dL 0.8 Alkaline Phosphatase 38 - 113 U/L 84 AST 14 - 40 U/L 28 ALT 10 - 54 U/L 20 Glucose 74 - 99 mg/dL 111 (H) BUN 9 - 24 mg/dL 9 Creatinine 0.73 - 1.22 mg/dL 1.26 (H) Sodium 136 - 144 mmol/L 136 Potassium 3.7 - 5.1 mmol/L 4.0 Chloride 97 - 105 mmol/L 99 CO2 22 - 30 mmol/L 27 Anion Gap 9 - 18 mmol/L 10 eGFR >=60 mL/min/1.73m 76 WBC 3.70 - 11.00 k/uL 7.76 RBC 4.20 - 6.00 m/uL 5.26 Hemoglobin 13.0 - 17.0 g/dL 15.6 Hematocrit 39.0 - 51.0 % 46.6 MCV 80.0 - 100.0 fL 88.6 MCH 26.0 - 34.0 pg 29.7 MCHC 30.5 - 36.0 g/dL 33.5 RDW-CV 11.5 - 15.0 % 13.1 Platelet Count 150 - 400 k/uL 225 MPV 9.0 - 12.7 fL 12.1 Absolute nRBC <0.01 k/uL <0.01 Total Cholesterol, Nonfasting <200 mg/dL 226 (H) Triglycerides, Nonfasting <150 mg/dL 233 (H) HDL Cholesterol, Nonfasting >39 mg/dL 34 (L) LDL Cholesterol, Nonfasting <100 mg/dL 145 (H) Non HDL Cholesterol, Nonfasting <130 mg/dL 192 (H) VLDL Cholesterol, Nonfasting <30 mg/dL 47 (H) Total Chol/HDL Ratio, Nonfasting <5.10 mg/dL 6.65 (H) LDL/HDL Ratio, Nonfasting <2.54 mg/dL 4.26 (H) Hemoglobin A1C 4.3 - 5.6 % 6.2 (H) Estimated Average Glucose mg/dL 131 ASSESSMENT/PLAN: 1. Muscle cramping - ICD9: 729.82, ICD10: R25.2 (primary diagnosis) Patient requesting a month off of work to get this figured out. Discussed that his condition does not require time off of work and would encourage him to work on low sodium/carb diet, hydration, and stretching exercises. Avoid NSAIDs for PARMJIT. Will repeat labs in 1-2 weeks as ordered. - COMP METABOLIC PANEL - MAGNESIUM BLD - URINALYSIS, WITH MICROSCOPIC - PHOSPHORUS INORGANIC 2. PARMJIT (acute kidney injury) (HCC) - ICD9: 584.9, ICD10: N17.9 See above. - COMP METABOLIC PANEL - MAGNESIUM BLD - URINALYSIS, WITH MICROSCOPIC - PHOSPHORUS INORGANIC 3. Prediabetes - ICD9: 790.29, ICD10: R73.03 See above. Anshul Ronquillo MD documented in this encounter [facility] 04-23-2022 Miscellaneous Notes Soonest available appointment with any of the Sleep APPs is May 29, 10 days before pts scheduled appointment with Dr. Rothman. TC to patient to offer sooner appointment. Pt said due to the condition of his vehicle he would prefer not to travel and therefore would like to stay with his current appointment on May [address] Rothman. LAMAR Rosado Was attempt made to schedule pt with sleep SHAILESH for sooner appt? Jerrod Rothman MD PAPI with Dr. Rothman on 04/09/2022. Please advise. Thank you. LAMAR Rosado Patient called to schedule 30 day follow up for CPAP machine. I was unable to schedule the patient at the 30 day deob. He is currently scheduled for 06/08/22. The patient would like to know if having his follow up past the 30 days will affect his coverage. Please advise patient. documented in this encounter [facility] 04-19-2022 Note HNO ID: [id number] Author: Emi Oliveira, DENNY Service: ? Author Type: SOLAR PROJECT ENGINEER Type: Progress Notes Filed: 04/19/2022 3:33 PM Note Text: 1. Type 2 diabetes mellitus without retinopathy (HCC) Risk of diabetic changes and vision loss can be minimized by tight control of blood sugar, blood pressure, and cholesterol levels. 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 Encouraged patient to call the office immediately with any changes to vision or visual concerns. Advised to not wait until the next scheduled exam. 2. Myopia, bilateral 3. Regular astigmatism of both eyes Finalized spec rx Emi Oliveira, OD April 19, 2022 3:30 PM [facility] 04-19-2022 History of Presen t illness Narrative 1. Type 2 diabetes mellitus without retinopathy (HCC) Risk of diabetic changes and vision loss can be minimized by tight control of blood sugar, blood pressure, and cholesterol levels. 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 Encouraged patient to call the office immediately with any changes to vision or visual concerns. Advised to not wait until the next scheduled exam. 2. Myopia, bilateral 3. Regular astigmatism of both eyes Finalized spec rx Emi Oliveira, OD April 19, 2022 3:30 PM documented in this encounter [facility] 04-18-2022 Miscellaneous Notes Letter mailed to pt home notifying pt of below. Pebbles Byrne Ma Rx sent and repeat labs ordered. Recommend follow up in 3 months on new rx. Patient telephoned. Made aware of results and recommendations below. Voices understanding. Requests medications be sent to [facility]. No need to call patient back, pharmacy lets know when medication is ready. Tia Romero LPN Message left for pt to call back for results. Pebbles Byrne MA ----- Message from Anshul Ronquillo MD sent at 04/12/2022 1:40 PM EDT ----- A1c still in prediabetic range at 6.2, up from 5.9. Recommend low carb diet with addition of metformin 500 mg BID to help lower his sugar levels. Most common side effect is diarrhea. If agreeable, will send to requested pharmacy Cholesterol is high, but not in range for statin. Recommend low cholesterol diet, exercise and weight loss as discussed in office. documented in this encounter [facility] 04-11-2022 Note HNO ID: [id number] Author: Anshul Ronquillo MD Service: ? Author Type: Physician Type: Progress Notes Filed: 04/11/2022 11:57 AM Note Text: Chief Complaint Patient presents with: Acute Visit: A1C HPI Rey White is a 36 year old male who presents here today for diabetes follow up. Patient states that he was told he was borderline diabetic in [place] back in 2018. States that he was on metformin, but cannot recall the dosage. Stopped taking the metformin about 2 years ago. Patient is aware of the diabetic diet, but does not follow it regularly or count his carbs. 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 Admits to polyuria, polyphagia, polydipsia, blurred vision. Denies numbness/tingling in hands or feet. Due for A1c. Has appointment with his Emi Oliveira on Saturday for intermittent blurred vision. Smoking black and milds regularly, but is not ready to quit today. Notes that he smoked before he came in and drank [employer] which is why his HR may be elevated. Following up with Dr. Rothman for sleep medicine. Ordered CPAP which has not arrived yet. Discussed weight loss with diet and exercise. Before moving to [place] he was a patient at [facility]. Past medical history, appointments, medications, allergies reviewed. Previous Medical History PAST MEDICAL HISTORY Diagnosis Date - Asthma - Hyperlipidemia - Hypertension - Morbid obesity (HCC) - Other sleep apnea - Prediabetes Previous Surgical History PAST SURGICAL HISTORY Procedure Laterality Date - LAPROSCOPIC REPAIR UMBILICAL HERNIA - TONSILLECTOMY AND ADENOIDECTOMY Family History FAMILY HISTORY Problem Relation Age of Onset - other (prediabetic) Mother - Asthma Mother - No Known Problems Father - Diabetes Maternal Grandmother - Diabetes Maternal Grandfather - No Known Problems Paternal Grandmother - No Known Problems Paternal Grandfather Patient Allergies ALLERGIES No Known Allergies Current Medications Current Outpatient Medications on File Prior to Visit Medication Sig - albuterol HFA (VENTOLIN HFA) 90 mcg/actuation inhaler Inhale 2 Puffs as instructed every 4 hours as needed for wheezing/shortness of breath. - CPAP/BIPAP/OTHER Type .CPAPSettings into a note to see current settings/supplies/DME information. - lisinopril (ZESTRIL, PRINIVIL) 10 mg tablet Take by mouth. (Patient not taking: Reported on 04/09/2022 ) No current facility-administered medications on file prior to visit. Social History Social History Tobacco Use - Smoking status: Current Every Day Smoker Years: 13.00 Types: Cigars - Smokeless tobacco: Never Used - Tobacco comment: 2-3 cigars daily Vaping Use - Vaping Use: Never used Substance Use Topics - Alcohol use: Yes Comment: occasion - Drug use: Not Currently Review of Symptoms REVIEW OF SYSTEMS GENERAL: No weight loss, malaise or fevers RESPIRATORY: Negative for cough, hemoptysis, wheezing, COPD, dyspnea or shortness of breath CARDIOVASCULAR: Negative for chest pain, leg swelling, hypertension, CHF or palpitations GI: No nausea, vomiting, or diarrhea SKIN: Negative for lesions, rash, and itching EXAM: BP 140/90 Pulse 113 Resp 18 Wt 126.6 kg (279 lb) SpO2 98% BMI 35.62 kg/m? General Appearance: Well appearing, alert, in no acute distress, well-hydrated, well nourished.. Skin: Skin color, texture, turgor normal, no suspicious rashes or lesions. Lungs: Lungs clear to auscultation. No wheezing, rhonchi, rales.. Heart: Negative findings: no murmurs, clicks, or gallops, Positive findings: tachycardia. Abdomen: Normal abdominal exam, Abdomen soft, non-tender. Bowel sounds normal. No masses, organomegaly. Extremities: No deformities, edema, skin discoloration, clubbing or cyanosis. Good capillary refill. . Health Maintenance List DEPRESSION SCREENING Never done DTAP,TDAP,TD(1 - Tdap) Never done COVID-19 VACCINE(1) due on 05/31/2022 INFLUENZA(1) due on 05/10/2022 LIPID SCREEN due on 06/05/2026 HEPATITIS C SCREENING Completed HIV SCREENING Completed Data reviewed Component Latest Ref Rng AND Units 06/05/2021 Protein, Total 6.3 - 8.0 g/dL 7.4 Albumin 3.9 - 4.9 g/dL 4.2 Calcium 8.5 - 10.2 mg/dL 9.8 Bilirubin, Total 0.2 - 1.3 mg/dL 0.6 Alkaline Phosphatase 38 - 113 U/L 69 AST 14 - 40 U/L 24 Glucose 74 - 99 mg/dL 93 BUN 9 - 24 mg/dL 8 (L) Creatinine 0.73 - 1.22 mg/dL 1.31 (H) Sodium 136 - 144 mmol/L 138 Potassium 3.7 - 5.1 mmol/L 4.2 Chloride 97 - 105 mmol/L 102 CO2 22 - 30 mmol/L 27 Anion Gap 9 - 18 mmol/L 9 ALT 10 - 54 U/L 16 eGFR- >60 eGFR-All Other Races . >60 Cholesterol, Total <200 mg/dL 197 Triglyceride <150 mg/dL 278 (H) HDL Cholesterol >39 mg/dL 26 (L) LDL Cholesterol <100 mg/dL 115 (H) Non HDL Cholesterol <130 mg/dL 171 (H) Fasting Time hrs 8 VLDL Cholesterol <30 mg/dL 56 (more content not included)... [facility] 04-11-2022 History of Presen t illness Narrative Chief Complaint Patient presents with: Acute Visit: A1C HPI Rey White is a 36 year old male who presents here today for diabetes follow up. Patient states that he was told he was borderline diabetic in [place] back in 2018. States that he was on metformin, but cannot recall the dosage. Stopped taking the metformin about 2 years ago. Patient is aware of the diabetic diet, but does not follow it regularly or count his carbs. 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 Admits to polyuria, polyphagia, polydipsia, blurred vision. Denies numbness/tingling in hands or feet. Due for A1c. Has appointment with his Emi Oliveira on Saturday for intermittent blurred vision. Smoking black and milds regularly, but is not ready to quit today. Notes that he smoked before he came in and drank [employer] which is why his HR may be elevated. Following up with Dr. Rothman for sleep medicine. Ordered CPAP which has not arrived yet. Discussed weight loss with diet and exercise. Before moving to [place] he was a patient at [facility] in [facility]. Past medical history, appointments, medications, allergies reviewed. Previous Medical History PAST MEDICAL HISTORY Diagnosis Date Asthma Hyperlipidemia Hypertension Morbid obesity (HCC) Other sleep apnea Prediabetes Previous Surgical History PAST SURGICAL HISTORY Procedure Laterality Date LAPROSCOPIC REPAIR UMBILICAL HERNIA TONSILLECTOMY & ADENOIDECTOMY <AGE 12 Family History FAMILY HISTORY Problem Relation Age of Onset other (prediabetic) Mother Asthma Mother No Known Problems Father Diabetes Maternal Grandmother Diabetes Maternal Grandfather No Known Problems Paternal Grandmother No Known Problems Paternal Grandfather Patient Allergies ALLERGIES No Known Allergies Current Medications Current Outpatient Medications on File Prior to Visit Medication Sig albuterol HFA (VENTOLIN HFA) 90 mcg/actuation inhaler Inhale 2 Puffs as instructed every 4 hours as needed for wheezing/shortness of breath. CPAP/BIPAP/OTHER Type .CPAPSettings into a note to see current settings/supplies/DME information. lisinopril (ZESTRIL, PRINIVIL) 10 mg tablet Take by mouth. (Patient not taking: Reported on 04/09/2022 ) No current facility-administered medications on file prior to visit. Social History Social History Tobacco Use Smoking status: Current Every Day Smoker Years: 13.00 Types: Cigars Smokeless tobacco: Never Used Tobacco comment: 2-3 cigars daily Vaping Use Vaping Use: Never used Substance Use Topics Alcohol use: Yes Comment: occasion Drug use: Not Currently Review of Symptoms REVIEW OF SYSTEMS GENERAL: No weight loss, malaise or fevers RESPIRATORY: Negative for cough, hemoptysis, wheezing, COPD, dyspnea or shortness of breath CARDIOVASCULAR: Negative for chest pain, leg swelling, hypertension, CHF or palpitations GI: No nausea, vomiting, or diarrhea SKIN: Negative for lesions, rash, and itching EXAM: BP 140/90 Pulse 113 Resp 18 Wt 126.6 kg (279 lb) SpO2 98% BMI 35.62 kg/m General Appearance: Well appearing, alert, in no acute distress, well-hydrated, well nourished.. Skin: Skin color, texture, turgor normal, no suspicious rashes or lesions. Lungs: Lungs clear to auscultation. No wheezing, rhonchi, rales.. Heart: Negative findings: no murmurs, clicks, or gallops, Positive findings: tachycardia. Abdomen: Normal abdominal exam, Abdomen soft, non-tender. Bowel sounds normal. No masses, organomegaly. Extremities: No deformities, edema, skin discoloration, clubbing or cyanosis. Good capillary refill. . Health Maintenance List DEPRESSION SCREENING Never done DTAP,TDAP,TD(1 - Tdap) Never done COVID-19 VACCINE(1) due on 05/31/2022 INFLUENZA(1) due on 05/10/2022 LIPID SCREEN due on 06/05/2026 HEPATITIS C SCREENING Completed HIV SCREENING Completed Data reviewed Component Latest Ref Rng & Units 06/05/2021 Protein, Total 6.3 - 8.0 g/dL 7.4 Albumin 3.9 - 4.9 g/dL 4.2 Calcium 8.5 - 10.2 mg/dL 9.8 Bilirubin, Total 0.2 - 1.3 mg/dL 0.6 Alkaline Phosphatase 38 - 113 U/L 69 AST 14 - 40 U/L 24 Glucose 74 - 99 mg/dL 93 BUN 9 - 24 mg/dL 8 (L) Creatinine 0.73 - 1.22 mg/dL 1.31 (H) Sodium 136 - 144 mmol/L 138 Potassium 3.7 - 5.1 mmol/L 4.2 Chloride 97 - 105 mmol/L 102 CO2 22 - 30 mmol/L 27 Anion Gap 9 - 18 mmol/L 9 ALT 10 - 54 U/L 16 eGFR- >60 eGFR-All Other Races . >60 Cholesterol, Total <200 mg/dL 197 Triglyceride <150 mg/dL 278 (H) HDL Cholesterol >39 mg/dL 26 (L) LDL Cholesterol <100 mg/dL 115 (H) Non HDL Cholesterol <130 mg/dL 171 (H) Fasting Time hrs 8 VLDL Cholesterol <30 mg/dL 56 (H) TC:HDL Ratio <5.10 7.58 (H) LDL:HDL Ratio <2.54 4.42 (H) HIV 12 Combo (Ag/Ab) Non Reactive Non Reactive HIV-1/2 AB Test Not Indicated HIV Interpretation Negative Hemoglobin A1C 4.3 - 5.6 % 5.9 (H) Estimated Average Glucose mg/dL 123 Hep C Antibody IA Negative Positive (A) HCV RNA by PCR IU/mL HCV RNA not detected by PCR. ASSESSMENT/PLAN: 1. Prediabetes - ICD9: 790.29, ICD10: R73.03 (primary diagnosis) Patient complaining of several diabetes symptoms today. Repeat A1c today. Given booklet on meal planning. If A1C is >6 will restart him on metformin. Discussed importance of diet and exercise. F/u in 6 months. - HGB A1C - COMP METABOLIC PANEL - CBC 2. Tachycardia - ICD9: 785.0, ICD10: R00.0 HR elevated likely 2/2 tobacco and caffeine use before arrival. Normal at OV 2 days ago. Discussed checking his HR at home and call if consistently >100 so we can have him return for repeat evaluation. 3. JULIETTE (obstructive sleep apnea) - ICD9: 327.23, ICD10: G47.33 Recommendations per sleep medicine. 4. Hyperlipidemia, mixed - ICD9: 272.2, ICD10: E78.2 - to be determined upon return of lab results - Encouraged following a low fat, low cholesterol diet. - Discussed the benefits of regular aerobic exercise and weight loss. - LIPID PANEL, NONFASTING 5. Class 2 severe obesity due to excess calories with serious comorbidity and body mass index (BMI) of 35.0 to 35.9 in adult (HCC) - ICD9: 278.01, V85.35, ICD10: E66.01, Z68.35 Stable - Behavioral intervention 6. Elevated BP without diagnosis of hypertension - ICD9: 796.2, ICD10: R03.0 - Encouraged dietary sodium restriction/DASH diet - Recommended regular aerobic exercise. - Follow up in 2 weeks for BP recheck. - Recommended smoking cessation and avoidance of caffeine. 7. Tobacco use - ICD9: 305.1, ICD10: Z72.0 - Cessation encouraged. - Physiologic and physical aspects of tobacco addiction as well as strategies for quitting were discussed. - Counseling was given focusing on the harmful effects of this addiction especially given the patient's medical condition(s) which will be worsened because of the chemicals in tobacco. Anshul Ronquillo MD documented in this encounter [facility] 04-10-2022 Miscellaneous Notes Orders for CPAP and required documentation faxed to [facility] per patients request. LAMAR Rosado documented in this encounter [facility] 04-09-2022 Note HNO ID: [id number] Author: Jerrod Rothman Jr., MD Service: ? Author Type: Physician Type: Progress Notes Filed: 04/09/2022 11:16 AM Note Text: NEW PATIENT (CONSULT) HISTORY AND PHYSICAL EXAM PRIMARY CARE PHYSICIAN: Anshul Ronquillo MD REASON FOR CONSULT: JULIETTE REFERRING PHYSICIAN: Paula Luke APRN.C* CHIEF COMPLAINT: JULIETTE Consultation requested by Paula Luke APRN.C* for an opinion regarding chief complaint of Patient presents with: Sleep Apnea and my final recommendations will be communicated back to the requesting physician by way of shared medical record or letter via US mail. HISTORY OF PRESENT ILLNESS: Rey White is a 36 year old male, BMI 36.2 kg/m2 with a PMH significant for JULIETTE as determined by PSG performed on 06/02/21. Reports reviewed. AHI was 39.1 supine and 2.0 off-supine with an overall AHI of 17.5. Min O2 sat was 89%. That study was a split night was performed that same night. Recommended patient be on an Auto PAP at 8-15 cmH2O. Appears that Estefany Salcedo PA-C placed order for PAP earlier this year. Pt states he snores loudly his entire life. They took my tonsils out because . States sleep is on and off . Goes to bed about 11PM and takes about 1/2 hour to fall asleep. Does have some racing thoughts at night - employment and finances. Also worried about his sleep disorder, which makes him not want to sleep. Does wake up due to snoring at night. Wakes about 530AM. States he does not feel restored in the AM after sleep. Falling asleep during the day. Does doze off driving and admits to having fallen asleep while driving. Pt with known conditions that could be provoked by JULIETTE including: DM, HTN, HLD. No RLS symptoms. No parasomnias. No narcolepsy tetrad. Patient states wore a PAP years ago. Mcleod more energy back then. Family Hx - mother. REVIEW OF SYSTEMS GENERAL:No weight loss, malaise or fevers. HEENT:Negative for frequent or significant headaches, No changes in hearing or vision, no nose bleeds or other nasal problems NECK:Negative for lumps, goiter, pain and significant neck swelling RESPIRATORY: Negative for cough, wheezing or shortness of breath. CARDIOVASCULAR: Negative for chest pain, leg swelling or palpitations. GASTROINTESTINAL: Negative for abdominal discomfort, blood in stools or black stools or change in bowel habits GENITOURINARY: No history of dysuria, frequency or incontinence MUSCULOSKELETAL: Negative for joint pain or swelling, back pain or muscle pain. NEUROLOGIC:Negative for focal numbness or weakness, headaches and dizziness or syncope, vision changes, speech/language changes, changes in gait or falls -- besides those complaints as above in HPI. HEMATOLOGIC/LYMPHATIC/IMMUNOLOG IC:Negative for prolonged bleeding, bruising easily or swollen nodes. ENDOCRINE: Negative for cold or heat intolerance, polyuria, polydipsia and goiter. The remainder of the ROS was reviewed and is negative. LAB/IMAGING: Reviewed and include: Glucose (mg/dL) Date Value 03/16/2022 100 (H) BUN (mg/dL) Date Value 03/16/2022 14 Creatinine (mg/dL) Date Value 03/16/2022 1.18 Sodium (mmol/L) Date Value 03/16/2022 135 (L) Potassium (mmol/L) Date Value 03/16/2022 4.9 Chloride (mmol/L) Date Value 03/16/2022 102 CO2 (mmol/L) Date Value 03/16/2022 23 Protein, Total (g/dL) Date Value 03/16/2022 8.1 (H) Albumin (g/dL) Date Value 03/16/2022 4.6 Calcium, Total (mg/dL) Date Value 03/16/2022 9.8 Alkaline Phosphatase (U/L) Date Value 03/16/2022 85 Bilirubin, Total (mg/dL) Date Value 03/16/2022 0.5 AST (U/L) Date Value 03/16/2022 26 ALT (U/L) Date Value 03/16/2022 27 Hep C Antibody IA (no units) Date Value 06/05/2021 Positive (A) URINALYSIS Specific [place], Ur Date Value Ref Range Status 03/16/2022 1.023 1.005 - 1.030 Final Glucose, Urine Date Value Ref Range Status 03/16/2022 Negative Negative Final Bilirubin, Urine Date Value Ref Range Status 03/16/2022 Negative Negative Final Ketones, Urine Date Value Ref Range Status 03/16/2022 Negative Negative Final Hemoglobin/Blood,Ur Date Value Ref Range Status 03/16/2022 Negative Negative Final Protein, Urine Date Value Ref Range Status 03/16/2022 Negative Negative Final WBC, Urine Date Value Ref Range Status 03/16/2022 0-5 /HPF 0-5 /HPF Final MEDICATIONS: albuterol HFA (VENTOLIN HFA) 90 mcg/actuation inhaler Inhale 2 Puffs as instructed every 4 hours as needed for wheezing/shortness of breath. lisinopril (ZESTRIL, PRINIVIL) 10 mg tablet Take by mouth. HISTORIES PAST MEDICAL HISTORY Diagnosis Date - Asthma - Diabetes mellitus type 2 (HCC) - Hyperlipidemia - Hypertension - Morbid obesity (HCC) - Other sleep apnea FAMILY HISTORY Problem Relation Age of Onset - other (prediabetic) Mother - Asthma Mother - No Known Problems Father - Diabetes Maternal Grandmother - Diabetes Maternal Gran (more content not included)... [facility] 04-09-2022 History of Presen t illness Narrative NEW PATIENT (CONSULT) HISTORY AND PHYSICAL EXAM PRIMARY CARE PHYSICIAN: Anshul Ronquillo MD REASON FOR CONSULT: JULIETTE REFERRING PHYSICIAN: Paula Luke APRN.C* CHIEF COMPLAINT: JULIETTE Consultation requested by Paula Luke APRN.C* for an opinion regarding chief complaint of Patient presents with: Sleep Apnea and my final recommendations will be communicated back to the requesting physician by way of shared medical record or letter via US mail. HISTORY OF PRESENT ILLNESS: Rey White is a 36 year old male, BMI 36.2 kg/m2 with a PMH significant for JULIETTE as determined by PSG performed on 06/02/21. Reports reviewed. AHI was 39.1 supine and 2.0 off-supine with an overall AHI of 17.5. Min O2 sat was 89%. That study was a split night was performed that same night. Recommended patient be on an Auto PAP at 8-15 cmH2O. Appears that Estefany Salcedo PA-C placed order for PAP earlier this year. Pt states he snores loudly his entire life. They took my tonsils out because . States sleep is on and off . Goes to bed about 11PM and takes about 1/2 hour to fall asleep. Does have some racing thoughts at night - employment and finances. Also worried about his sleep disorder, which makes him not want to sleep. Does wake up due to snoring at night. Wakes about 530AM. States he does not feel restored in the AM after sleep. Falling asleep during the day. Does doze off driving and admits to having fallen asleep while driving. Pt with known conditions that could be provoked by JULIETTE including: DM, HTN, HLD. No RLS symptoms. No parasomnias. No narcolepsy tetrad. Patient states wore a PAP years ago. Mcleod more energy back then. Family Hx - mother. REVIEW OF SYSTEMS GENERAL:No weight loss, malaise or fevers. HEENT:Negative for frequent or significant headaches, No changes in hearing or vision, no nose bleeds or other nasal problems NECK:Negative for lumps, goiter, pain and significant neck swelling RESPIRATORY: Negative for cough, wheezing or shortness of breath. CARDIOVASCULAR: Negative for chest pain, leg swelling or palpitations. GASTROINTESTINAL: Negative for abdominal discomfort, blood in stools or black stools or change in bowel habits GENITOURINARY: No history of dysuria, frequency or incontinence MUSCULOSKELETAL: Negative for joint pain or swelling, back pain or muscle pain. NEUROLOGIC:Negative for focal numbness or weakness, headaches and dizziness or syncope, vision changes, speech/language changes, changes in gait or falls -- besides those complaints as above in HPI. HEMATOLOGIC/LYMPHATIC/IMMUNOLOG IC:Negative for prolonged bleeding, bruising easily or swollen nodes. ENDOCRINE: Negative for cold or heat intolerance, polyuria, polydipsia and goiter. The remainder of the ROS was reviewed and is negative. LAB/IMAGING: Reviewed and include: Glucose (mg/dL) Date Value 03/16/2022 100 (H) BUN (mg/dL) Date Value 03/16/2022 14 Creatinine (mg/dL) Date Value 03/16/2022 1.18 Sodium (mmol/L) Date Value 03/16/2022 135 (L) Potassium (mmol/L) Date Value 03/16/2022 4.9 Chloride (mmol/L) Date Value 03/16/2022 102 CO2 (mmol/L) Date Value 03/16/2022 23 Protein, Total (g/dL) Date Value 03/16/2022 8.1 (H) Albumin (g/dL) Date Value 03/16/2022 4.6 Calcium, Total (mg/dL) Date Value 03/16/2022 9.8 Alkaline Phosphatase (U/L) Date Value 03/16/2022 85 Bilirubin, Total (mg/dL) Date Value 03/16/2022 0.5 AST (U/L) Date Value 03/16/2022 26 ALT (U/L) Date Value 03/16/2022 27 Hep C Antibody IA (no units) Date Value 06/05/2021 Positive (A) URINALYSIS Specific [place], Ur Date Value Ref Range Status 03/16/2022 1.023 1.005 - 1.030 Final Glucose, Urine Date Value Ref Range Status 03/16/2022 Negative Negative Final Bilirubin, Urine Date Value Ref Range Status 03/16/2022 Negative Negative Final Ketones, Urine Date Value Ref Range Status 03/16/2022 Negative Negative Final Hemoglobin/Blood,Ur Date Value Ref Range Status 03/16/2022 Negative Negative Final Protein, Urine Date Value Ref Range Status 03/16/2022 Negative Negative Final WBC, Urine Date Value Ref Range Status 03/16/2022 0-5 /HPF 0-5 /HPF Final MEDICATIONS: albuterol HFA (VENTOLIN HFA) 90 mcg/actuation inhaler Inhale 2 Puffs as instructed every 4 hours as needed for wheezing/shortness of breath. lisinopril (ZESTRIL, PRINIVIL) 10 mg tablet Take by mouth. HISTORIES PAST MEDICAL HISTORY Diagnosis Date Asthma Diabetes mellitus type 2 (HCC) Hyperlipidemia Hypertension Morbid obesity (HCC) Other sleep apnea FAMILY HISTORY Problem Relation Age of Onset other (prediabetic) Mother Asthma Mother No Known Problems Father Diabetes Maternal Grandmother Diabetes Maternal Grandfather No Known Problems Paternal Grandmother No Known Problems Paternal Grandfather SOCIAL HISTORY Social History Tobacco Use Smoking status: Former Smoker Years: 13.00 Types: Cigars Smokeless tobacco: Never Used Tobacco comment: 2-3 cigars daily Vaping Use Vaping Use: Never used Substance Use Topics Alcohol use: Yes Comment: occasion Drug use: Not Currently PHYSICAL EXAMINATION BP 142/88 Pulse 76 Temp 36.1 C (97 F) Resp 20 Wt 128.6 kg (283 lb 9.6 oz) SpO2 97% BMI 36.20 kg/m GENERAL EXAM: General appearance: NAD, pleasant. HEENT: NC/AT, nasal congestion absent, no oral lesions, membranes moist. Smith IV. Neck: 17.5 Lungs: CTA bilaterally. CV: RRR nl S1, S2. No carotid bruits. Extr: No cyanosis, clubbing or edema. Skin: Cool to touch. NEUROLOGICAL EXAM: General: Awake, alert, oriented x3 (person,place,time), speech fluent, no dysarthria; comprehension, naming, repetition intact. CN: PERRL,EOMI and without nystagmus, VFF to confrontation, facial sensation and strength are normal and symmetric, hearing is intact to finger rub bilaterally, palate and tongue movements are intact and symmetric. SCM and trapezius strength normal. Motor: Normal tone, bulk and strength (5/5) bilaterally (throughout extremities x4). Coordination: FNF, ESPERANZA, HTS intact. No tremors. Sensation: LT, vibration, temperature intact throughout. No evidence of neglect. Gait: Stable with normal stride and arm swing. Assessment and Plan: ASSESSMENT/PLAN: 1. Obstructive sleep apnea (adult) (pediatric) - ICD9: 327.23, ICD10: G47.33 (primary diagnosis) 2. Class 2 obesity with body mass index (BMI) of 36.0 to 36.9 in adult, unspecified obesity type, unspecified whether serious comorbidity present - ICD9: 278.00, V85.36, ICD10: E66.9, Z68.36 Patient with JULIETTE as confirmed by sleep study as above. Likely contributing to JULIETTE is crowded airway, obesity and family history. Pt with med conditions that could be exacerbated by JULIETTE as noted above. Reviewed study results with patient. Discussed with patient: the physiology of OSAS, medical conditions associated with OSAS (DM, HTN, CAD, Depression, Stroke, Headache...) and treatment options (UPPP, Dental appliances, CPAP...). As per the recommendations of the study, will initiate Auto PAP at 8-15 cmH2O. Patient will follow up in 3 months to determine if changes to PAP settings would be needed and confirm compliance. Advised patient to avoid activities that could harm self or others when tired/sleepy, including driving and/or operating heavy machinery. Encouraged weight loss, and continued compliance with other medications. Jerrod Rothman MD I spent a total of 33 minutes on the date of the service which included preparing to see the patient, [id number] patient care, completing clinical documentation, obtaining and/or reviewing separately obtained history, performing a medically appropriate examination, counseling and educating the patient/family/caregiver, ordering medications, tests, or procedures, independently interpreting results (not separately reported) and communicating results to the patient/family/caregiver. documented in this encounter [facility] 03-27-2022 Miscellaneous Notes Phoned patient again to try to reschedule. VM left again for patient. Phoned patient to advise 12p appt is not an available time slot and to offer available times that are currently left today. VM left for him to return call to reschedule appt time. documented in this encounter [facility] 03-22-2022 Miscellaneous Notes Pt called and is notified of providers results and instructions. Pt voices understanding. Glenda Solomon RN CK muscle enzyme elevated at his ER visit is almost normal. Kidney function has returned to normal. Rest of labs are okay. Stop blood pressure medication LISINOPRIL. Stay hydrated. Keep follow up appointment with Dr. Ronquillo. Patient calling for lab results done 03/16/22. He says he is not feeling well today and is wondering if it could be lab related. He was vague about his symptoms and not willing to answer any triage questions. He is calling from out of town. Advised patient if he is not feeling well should go to local Urgent Care. Shanika Elias RN documented in this encounter [facility] 03-16-2022 Note HNO ID: [id number] Author: Emmett Conde MD Service: ? Author Type: Physician Type: Progress Notes Filed: 03/16/2022 2:37 PM Note Text: This note was created using [employer]. Subjective Patient presents with: ER F/U Rey White is a 36 year old male. PCP Anshul Ronquillo MD. He was in the ER 02/23/22 for general illness during work. He had severe muscle cramps and was describing tetany. He was diagnosed with heat exhaustion, acute kidney injury, dehydration. He improved with IVF. 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 He came back to the ER 03/10/22 with multiple concerns and was found to have hypertensive urgency and proteinuria. He was started on lisinopril. CPK was elevated. There was history of diabetes mellitus and rhabdomyolysis. He described episodes of severe generalized muscle cramps for 8 years worsening this year. Review of Systems Constitutional: Positive for fatigue. Negative for activity change, appetite change, fever and unexpected weight change. Respiratory: Negative for chest tightness and shortness of breath. Cardiovascular: Negative for chest pain, palpitations and leg swelling. Gastrointestinal: Negative for diarrhea, nausea and vomiting. Genitourinary: Negative for difficulty urinating and hematuria. Musculoskeletal: Positive for myalgias. Skin: Negative for rash. Neurological: Negative for weakness and numbness. There is no problem list on file for this patient. PAST MEDICAL HISTORY Diagnosis Date - Asthma - Diabetes mellitus type 2 (HCC) - Hyperlipidemia - Hypertension - Morbid obesity (HCC) - Other sleep apnea Social History Tobacco Use - Smoking status: Former Smoker Years: 13.00 Types: Cigars - Smokeless tobacco: Never Used - Tobacco comment: 2-3 cigars daily Vaping Use - Vaping Use: Never used Substance Use Topics - Alcohol use: Yes Comment: occasion - Drug use: Not Currently Current Outpatient Medications Medication Sig - lisinopril (ZESTRIL, PRINIVIL) 10 mg tablet Take by mouth. - albuterol HFA (VENTOLIN HFA) 90 mcg/actuation inhaler Inhale 2 Puffs as instructed every 4 hours as needed for wheezing/shortness of breath. No current facility-administered medications for this visit. Objective BP 124/82 Pulse 83 Wt 125.6 kg (277 lb) SpO2 98% BMI 35.36 kg/m? Physical Exam Constitutional: General: He is not in acute distress. Appearance: He is well-developed. He is not diaphoretic. Eyes: General: No scleral icterus. Conjunctiva/sclera: Conjunctivae normal. Cardiovascular: Rate and Rhythm: Normal rate and regular rhythm. Heart sounds: No murmur heard. No gallop. Pulmonary: Breath sounds: Normal breath sounds. No wheezing or rales. Abdominal: Palpations: Abdomen is soft. Tenderness: There is no abdominal tenderness. Musculoskeletal: General: No tenderness or deformity. Cervical back: Neck supple. Right lower leg: No edema. Left lower leg: No edema. Neurological: General: No focal deficit present. Mental Status: He is alert. Sensory: No sensory deficit. Motor: No weakness. Gait: Gait normal. Deep Tendon Reflexes: Reflexes normal. Assessment and Plan 1. Acute kidney injury (HCC) - ICD9: 584.9, ICD10: N17.9 (primary diagnosis) Recheck. - COMP METABOLIC PANEL 2. Proteinuria, unspecified type - ICD9: 791.0, ICD10: R80.9 Recheck. - URINALYSIS, WITH MICROSCOPIC 3. Cramps, muscle, general - ICD9: 729.82, ICD10: R25.2 - CK CREATINE KINASE - ALDOLASE BLD - SED RATE WESTERGREN - TSH BLD 4. Obesity, Class II, BMI 35-39.9 - ICD9: 278.00, ICD10: E66.9 Weight increasing 5. Hypertension, unspecified type - ICD9: 401.9, ICD10: I10 - newly diagnosed - Continue current medication(s) Follow up with PCP in 2 weeks. Emmett Conde MD [facility] 03-16-2022 History of Presen t illness Narrative This note was created using NoteWriter. Subjective Patient presents with: ER F/U Rey White is a 36 year old male. PCP Anshul Ronquillo MD. He was in the ER 02/23/22 for general illness during work. He had severe muscle cramps and was describing tetany. He was diagnosed with heat exhaustion, acute kidney injury, dehydration. He improved with IVF. 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 He came back to the ER 03/10/22 with multiple concerns and was found to have hypertensive urgency and proteinuria. He was started on lisinopril. CPK was elevated. There was history of diabetes mellitus and rhabdomyolysis. He described episodes of severe generalized muscle cramps for 8 years worsening this year. Review of Systems Constitutional: Positive for fatigue. Negative for activity change, appetite change, fever and unexpected weight change. Respiratory: Negative for chest tightness and shortness of breath. Cardiovascular: Negative for chest pain, palpitations and leg swelling. Gastrointestinal: Negative for diarrhea, nausea and vomiting. Genitourinary: Negative for difficulty urinating and hematuria. Musculoskeletal: Positive for myalgias. Skin: Negative for rash. Neurological: Negative for weakness and numbness. There is no problem list on file for this patient. PAST MEDICAL HISTORY Diagnosis Date Asthma Diabetes mellitus type 2 (HCC) Hyperlipidemia Hypertension Morbid obesity (HCC) Other sleep apnea Social History Tobacco Use Smoking status: Former Smoker Years: 13.00 Types: Cigars Smokeless tobacco: Never Used Tobacco comment: 2-3 cigars daily Vaping Use Vaping Use: Never used Substance Use Topics Alcohol use: Yes Comment: occasion Drug use: Not Currently Current Outpatient Medications Medication Sig lisinopril (ZESTRIL, PRINIVIL) 10 mg tablet Take by mouth. albuterol HFA (VENTOLIN HFA) 90 mcg/actuation inhaler Inhale 2 Puffs as instructed every 4 hours as needed for wheezing/shortness of breath. No current facility-administered medications for this visit. Objective BP 124/82 Pulse 83 Wt 125.6 kg (277 lb) SpO2 98% BMI 35.36 kg/m Physical Exam Constitutional: General: He is not in acute distress. Appearance: He is well-developed. He is not diaphoretic. Eyes: General: No scleral icterus. Conjunctiva/sclera: Conjunctivae normal. Cardiovascular: Rate and Rhythm: Normal rate and regular rhythm. Heart sounds: No murmur heard. No gallop. Pulmonary: Breath sounds: Normal breath sounds. No wheezing or rales. Abdominal: Palpations: Abdomen is soft. Tenderness: There is no abdominal tenderness. Musculoskeletal: General: No tenderness or deformity. Cervical back: Neck supple. Right lower leg: No edema. Left lower leg: No edema. Neurological: General: No focal deficit present. Mental Status: He is alert. Sensory: No sensory deficit. Motor: No weakness. Gait: Gait normal. Deep Tendon Reflexes: Reflexes normal. Assessment and Plan 1. Acute kidney injury (HCC) - ICD9: 584.9, ICD10: N17.9 (primary diagnosis) Recheck. - COMP METABOLIC PANEL 2. Proteinuria, unspecified type - ICD9: 791.0, ICD10: R80.9 Recheck. - URINALYSIS, WITH MICROSCOPIC 3. Cramps, muscle, general - ICD9: 729.82, ICD10: R25.2 - CK CREATINE KINASE - ALDOLASE BLD - SED RATE WESTERGREN - TSH BLD 4. Obesity, Class II, BMI 35-39.9 - ICD9: 278.00, ICD10: E66.9 Weight increasing 5. Hypertension, unspecified type - ICD9: 401.9, ICD10: I10 - newly diagnosed - Continue current medication(s) Follow up with PCP in 2 weeks. Emmett Conde MD documented in this encounter [facility] 02-23-2022 Note HNO ID: [id number] Author: Jaylin Chun PA-C Service: ? Author Type: Physician Shrimp Header Type: Progress Notes Filed: 02/23/2022 3:49 PM Note Text: Subjective HPI . HPI Rey White is a 36 year old male who presents today for CC of dizziness/ off balance, blurred vision x this afternoon. Also c/o chest pain and I just feel like something is really wrong. Pt reports that he's diabetic but took himself off his metformin about 1 year ago. 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 BP 132/78 Pulse (!) 122 Temp 36.8 ?C (98.2 ?F) Resp 16 Wt 126.6 kg (279 lb) SpO2 97% BMI 35.62 kg/m? ALLERGIES No Known Allergies There is no problem list on file for this patient. Family History Problem Relation Age of Onset - other (prediabetic) Mother - Asthma Mother - No Known Problems Father - Diabetes Maternal Grandmother - Diabetes Maternal Grandfather - No Known Problems Paternal Grandmother - No Known Problems Paternal Grandfather Social History Tobacco Use - Smoking status: Current Every Day Smoker Years: 13.00 Types: Cigars - Smokeless tobacco: Never Used - Tobacco comment: 2-3 cigars daily Vaping Use - Vaping Use: Never used Substance Use Topics - Alcohol use: Yes Comment: occasion - Drug use: Not Currently ROS Objective Physical Exam .ASSESSMENT/PLAN: 1. Dizziness - ICD9: 780.4, ICD10: R42 D/t neuro complaints (dizziness, blurred vision) as well as concern for dehydration ( tachycardia as HR 122 on presentation), as well as c/o chest pain- explained to pt that he requires a higher level of care than we can offer in this setting, and recommend he report to the ED for further EANDM. Pt expressed understanding and agrees; S/o will drive him over to [facility]. Jaylin Chun PA-C [facility] 02-23-2022 History of Presen t illness Narrative Subjective HPI . HPI Rey White is a 36 year old male who presents today for CC of dizziness/ off balance, blurred vision x this afternoon. Also c/o chest pain and I just feel like something is really wrong. Pt reports that he's diabetic but took himself off his metformin about 1 year ago. 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 BP 132/78 Pulse (!) 122 Temp 36.8 C (98.2 F) Resp 16 Wt 126.6 kg (279 lb) SpO2 97% BMI 35.62 kg/m ALLERGIES No Known Allergies There is no problem list on file for this patient. Family History Problem Relation Age of Onset other (prediabetic) Mother Asthma Mother No Known Problems Father Diabetes Maternal Grandmother Diabetes Maternal Grandfather No Known Problems Paternal Grandmother No Known Problems Paternal Grandfather Social History Tobacco Use Smoking status: Current Every Day Smoker Years: 13.00 Types: Cigars Smokeless tobacco: Never Used Tobacco comment: 2-3 cigars daily Vaping Use Vaping Use: Never used Substance Use Topics Alcohol use: Yes Comment: occasion Drug use: Not Currently ROS Objective Physical Exam .ASSESSMENT/PLAN: 1. Dizziness - ICD9: 780.4, ICD10: R42 D/t neuro complaints (dizziness, blurred vision) as well as concern for dehydration ( tachycardia as HR 122 on presentation), as well as c/o chest pain- explained to pt that he requires a higher level of care than we can offer in this setting, and recommend he report to the ED for further E&M. Pt expressed understanding and agrees; S/o will drive him over to [facility]. Jaylin Chun PA-C documented in this encounter [facility] Diagnosis Acute kidney injury (HCC)- Primary Acute kidney failure, unspecified Proteinuria, unspecified type Cramps, muscle, general Cramp of limb Obesity, Class II, BMI 35-39.9 Obesity, unspecified Hypertension, unspecified type [facility] Diagnosis Obstructive sleep apnea (adult) (pediatric)- Primary Class 2 obesity with body mass index (BMI) of 36.0 to 36.9 in adult, unspecified obesity type, unspecified whether serious comorbidity present [facility] Diagnosis Prediabetes- Primary Other abnormal glucose Tachycardia Tachycardia, unspecified JULIETTE (obstructive sleep apnea) Obstructive sleep apnea (adult) (pediatric) Hyperlipidemia, mixed Mixed hyperlipidemia Class 2 severe obesity due to excess calories with serious comorbidity and body mass index (BMI) of 35.0 to 35.9 in adult (HCC) Elevated BP without diagnosis of hypertension Tobacco use Tobacco use disorder [facility] Diagnosis Prediabetes- Primary Other abnormal glucose [facility] Diagnosis Type 2 diabetes mellitus without retinopathy (HCC)- Primary Type II or unspecified type diabetes mellitus without mention of complication, not stated as uncontrolled Myopia, bilateral Myopia Regular astigmatism of both eyes Regular astigmatism [facility] Diagnosis Muscle cramping- Primary Cramp of limb PARMJIT (acute kidney injury) (HCC) Acute kidney failure, unspecified Prediabetes Other abnormal glucose [facility] Diagnosis Possible exposure to STD- Primary Other specified personal history presenting hazards to health Penile discharge Urethral discharge Gross hematuria [facility] Diagnosis Trichomonas contact, treated- Primary Contact with or exposure to venereal diseases Hx of hematuria Personal history of other disorder of urinary system History of asthma Personal history of other diseases of respiratory system Prediabetes Other abnormal glucose Class 2 severe obesity due to excess calories with serious comorbidity and body mass index (BMI) of 38.0 to 38.9 in adult ([facility]) Other sleep apnea Need for influenza vaccination Need for prophylactic vaccination and inoculation against influenza [facility] Diagnosis Controlled type 2 diabetes mellitus without complication, without long-term current use of insulin ([facility])- Primary Hyperlipidemia, unspecified hyperlipidemia type Primary hypertension Unspecified essential hypertension documented in this encounter [facility] Medications Administered Section Active Administered Medications - up to 3 most recent administrations Medication Order MAR Action Action Date Dose Rate Site fluorescein-benoxinate 0.25-0.4 % 1 Drop (FLURESS) 1 Drop, BOTH EYES, DIRECTED, Starting on Sat04/19/22 at 1500, Until Sat04/20/22 at 025, Administer for applanation tonometry. In the event of a Fluress shortage, administer Rukhsana-Fluor 1 drop into both eyes as directed for applanation tonometry Given 04/19/2022 3:00 PM EDT 1 Drop PHENYLephrine 2.5 % 1 Drop (AK-DILATE, LISA-SYNEPHRINE) 1 Drop, BOTH EYES, DIRECTED, Starting on Sat04/19/22 at 1500, Until Sat04/20/22 at 0259, Administer for dilation PROTECT FROM LIGHT Given 04/19/2022 3:00 PM EDT 1 Drop proparacaine 0.5 % 1 Drop (ALCAINE) 1 Drop, BOTH EYES, DIRECTED, Starting on Sat04/19/22 at 1500, Until Sat04/20/22 at 0259, Administer for pneumo tonometry, tonopen tonometry, or pachymetry. In the event of a proparacaine shortage, administer tetracaine 0.5% ophthalmic drops 1 drop in the left eye as directed for pneumo tonometry, tonopen tonometry, or pachymetry Given 04/19/2022 3:00 PM EDT 1 Drop tropicamide 1 % 1 Drop (MYDRIACYL) 1 Drop, BOTH EYES, DIRECTED, Starting on Sat04/19/22 at 1500, Until Sat04/20/22 at 0259, Administer for dilation Given 04/19/2022 3:00 PM EDT 1 Drop Reason for Referral Specialty Diagnoses / Procedures Referred By Nini chang Referred To Contact Nutrition Diagnoses Class 2 severe obesity due to excess calories with serious comorbidity and body mass index (BMI) of 38.0 to 38.9 in adult ([facility]) Procedures CONSULT TO NUTRITION THERAPY OFFICE/OUTPATIENT [facility] 60-74 MINUTES Anshul Ronquillo MD [address] [place] [id number] Referral ID Status Reason Start Date Expiration Date Visits Requested Visits Authorized [id number] Authorized PCP Requested Referral 2 08/08/2023 1 1 Specialty Diagnoses / Procedures Referred By Nini chang Referred To Contact Diagnoses History of asthma Anshul Ronquillo MD [address] [place] [id number] Referral ID Status Reason Start Date Expiration Date Visits Re quested Visits Authorized [id number] Closed 1 1 Specialty Diagnoses / Procedures Referred By Nini chang Referred To Contact Diagnoses Controlled type 2 diabetes mellitus without complication, without long-term current use of insulin ([facility]) Procedures CONSULT TO DIABETES EDUCATION OFFICE/OUTPATIENT [facility] 60-74 MINUTES Anshul Ronquillo MD [address] [place] [id number] Referral ID Status Reason Start Date Expiration Date Visits Requested Visits Authorized [id number] Authorized PCP Requested Referral 09/12/2022 09/12/2023 1 1 Summary Purpose Family History No Family History Records Found Advance Directives No Advanced Directives Records Found Additional Source Comments Source Comments (unrecognize d section and content) In the event this informatio n is protected by the Federal Confidentiality of Alcohol and Drug Abuse Patient Records regulations: The Federal rules restrict any use of the information to criminally investigate or prosecute any alcohol or drug abuse patient.[facility] the event this information is protected by the Federal Confidentiality of Alcohol and Drug Abuse Patient Records regulations: The Federal rules restrict any use of the information to criminally investigate or prosecute any alcohol or drug abuse patient.[facility] the event this information is protected by the Federal Confidentiality of Alcohol and Drug Abuse Patient Records regulations: The Federal rules restrict any use of the information to criminally investigate or prosecute any alcohol or drug abuse patient.[facility] the event this information is protected by the Federal Confidentiality of Alcohol and Drug Abuse Patient Records regulations: The Federal rules restrict any use of the information to criminally investigate or prosecute any alcohol or drug abuse patient.[facility] the event this information is protected by the Federal Confidentiality of Alcohol and Drug Abuse Patient Records regulations: The Federal rules restrict any use of the information to criminally investigate or prosecute any alcohol or drug abuse patient.[facility] the event this information is protected by the Federal Confidentiality of Alcohol and Drug Abuse Patient Records regulations: The Federal rules restrict any use of the information to criminally investigate or prosecute any alcohol or drug abuse patient.[facility] the event this information is protected by the Federal Confidentiality of Alcohol and Drug Abuse Patient Records regulations: The Federal rules restrict any use of the information to criminally investigate or prosecute any alcohol or drug abuse patient.[facility] the event this information is protected by the Federal Confidentiality of Alcohol and Drug Abuse Patient Records regulations: The Federal rules restrict any use of the information to criminally investigate or prosecute any alcohol or drug abuse patient.[facility] the event this information is protected by the Federal Confidentiality of Alcohol and Drug Abuse Patient Records regulations: The Federal rules restrict any use of the information to criminally investigate or prosecute any alcohol or drug abuse patient.[facility] the event this information is protected by the Federal Confidentiality of Alcohol and Drug Abuse Patient Records regulations: The Federal rules restrict any use of the information to criminally investigate or prosecute any alcohol or drug abuse patient.[facility] the event this information is protected by the Federal Confidentiality of Alcohol and Drug Abuse Patient Records regulations: The Federal rules restrict any use of the information to criminally investigate or prosecute any alcohol or drug abuse patient.[facility] the event this information is protected by the Federal Confidentiality of Alcohol and Drug Abuse Patient Records regulations: The Federal rules restrict any use of the information to criminally investigate or prosecute any alcohol or drug abuse patient.[facility] the event this information is protected by the Federal Confidentiality of Alcohol and Drug Abuse Patient Records regulations: The Federal rules restrict any use of the information to criminally investigate or prosecute any alcohol or drug abuse patient.[facility] the event this information is protected by the Federal Confidentiality of Alcohol and Drug Abuse Patient Records regulations: The Federal rules restrict any use of the information to criminally investigate or prosecute any alcohol or drug abuse patient.[facility] the event this information is protected by the Federal Confidentiality of Alcohol and Drug Abuse Patient Records regulations: The Federal rules restrict any use of the information to criminally investigate or prosecute any alcohol or drug abuse patient.[facility] the event this information is protected by the Federal Confidentiality of Alcohol and Drug Abuse Patient Records regulations: The Federal rules restrict any use of the information to criminally investigate or prosecute any alcohol or drug abuse patient.[facility] the event this information is protected by the Federal Confidentiality of Alcohol and Drug Abuse Patient Records regulations: The Federal rules restrict any use of the information to criminally investigate or prosecute any alcohol or drug abuse patient.[facility] the event this information is protected by the Federal Confidentiality of Alcohol and Drug Abuse Patient Records regulations: The Federal rules restrict any use of the information to criminally investigate or prosecute any alcohol or drug abuse patient.[facility] the event this information is protected by the Federal Confidentiality of Alcohol and Drug Abuse Patient Records regulations: The Federal rules restrict any use of the information to criminally investigate or prosecute any alcohol or drug abuse patient.[facility] the event this information is protected by the Federal Confidentiality of Alcohol and Drug Abuse Patient Records regulations: The Federal rules restrict any use of the information to criminally investigate or prosecute any alcohol or drug abuse patient.[facility] Hospital[facility] the event this information is protected by the Federal Confidentiality of Alcohol and Drug Abuse Patient Records regulations: The Federal rules restrict any use of the information to criminally investigate or prosecute any alcohol or drug abuse patient.[facility] Hospital[facility] the event this information is protected by the Federal Confidentiality of Alcohol and Drug Abuse Patient Records regulations: The Federal rules restrict any use of the information to criminally investigate or prosecute any alcohol or drug abuse patient.[facility] Reason for Visit (unrecogniz ed section and content) Reason Comments ER F/U Reason Comments Results Reason Comments Appointment template error noon appt not an available time slot-offer alt times avail Reason Comments Sleep Apnea Specialty Diagnoses / Procedures Referred By Nini chang Referred To Contact Diagnoses JULIETTE (obstructive sleep apnea) Procedures CONSULT TO SLEEP MEDICINE - ADULT NEW PATIENT VISIT LEVEL 5 PodlogPaula piedra APRN.PRE BILLING SPECIALIST [address] [place] [address] Referral ID Status Reason Start Date Expiration Date V isits Requested Visits Authorized [id number] Closed PCP Requested Referral 06/19/2021 06/19/2022 1 1 Reason Comments Orders Reason Comments Acute Visit A1C Reason Comments Diabetic Eye Exam Reason Comments Patient Question Reason Comments Follow Up Wants to address stacie ts going on. What did the lab work tell Work not wanting him back until figure out what's wrong with him. Hands cramping up. As soon as he starts sweating issues begin. Kidney failure? Started he had an irregular heart beat. 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 Consult nephrology Reason Comments Letter Reason Comments Electronic Communication [employer]-pt re turned CPAP noncompliant Reason Comments STD check Reason Comments Results, Lab Medication Question Reason Comments no call no show policy Reason Onset Date Comments Follow Up Immunizations 08/08/2022 Flu vaccination Reason Comments Diabetes Neurologic Problem Reason Comments 1-2 month follow up DM Reason Comments Patient Update Care Teams (unrecognized sec tion and content) Building And Grounds Supervisor Relationship Specialty Start Date End Date Anshul Ronquillo MD [address] [place] [address] PCP - General Family Practice 10/19/21 Building And Grounds Supervisor Relationship Specialty Start Date End Date Anshul Ronquillo MD [address] [place] [address] PCP - General Family Practice 10/19/21 Building And Grounds Supervisor Relationship Specialty Start Date End Date Anshul Ronquillo MD [address] [place] [address] PCP - General Family Practice 10/19/21 Building And Grounds Supervisor Relationship Specialty Start Date End Date Anshul Ronquillo MD [address] [place] [address] PCP - General Family Practice 10/19/21 Building And Grounds Supervisor Relationship Specialty Start Date End Date Anshul Ronquillo MD [address] [place] [address] PCP - General Family Practice 10/19/21 Building And Grounds Supervisor Relationship Specialty Start Date End Date Anshul Ronquillo MD [address] [place] [address] PCP - General Family Practice 10/19/21 Building And Grounds Supervisor Relationship Specialty Start Date End Date Anshul Ronquillo MD [address] [place] [address] PCP - General Family Practice 10/19/21 Building And Grounds Supervisor Relationship Specialty Start Date End Date Anshul Ronquillo MD [address] [place] [place] [address] PCP - General Family Practice 10/19/21 Building And Grounds Supervisor Relationship Specialty Start Date End Date Anshul Ronquillo MD [address] [place] [address] PCP - General Family Practice 10/19/21 Building And Grounds Supervisor Relationship Specialty Start Date End Date Anshul Ronquillo MD [address] [place] [address] PCP - General Family Medicine 10/19/21 Building And Grounds Supervisor Relationship Specialty Start Date End Date Anshul Ronquillo MD [address] [place] [address] PCP - General Family Medicine 10/19/21 Building And Grounds Supervisor Relationship Specialty Start Date End Date Anshul Ronquillo MD [address] [place] [place] [address] PCP - General Family Medicine 10/19/21 Building And Grounds Supervisor Relationship Specialty Start Date End Date Anshul Ronquillo MD [address] [place] [place] [address] PCP - General Family Medicine 10/19/21 Building And Grounds Supervisor Relationship Specialty Start Date End Date Anshul Ronquillo MD [address] [place] [address] PCP - General Family Medicine 10/19/21 Building And Grounds Supervisor Relationship Specialty Start Date End Date Anshul Ronquillo MD [address] [place] [address] PCP - General Family [facility] 10/19/21 Building And Grounds Supervisor Relationship Specialty Start Date End Date Anshul Ronquillo MD [address] [place] [address] PCP - [facility] 10/19/21 Building And Grounds Supervisor Relationship Specialty Start Date End Date Anshul Ronquillo MD [address] [place] [address] PCP - General [facility] 10/19/21 (unrecognized sect ion and content) No Status Records Found INFORMATION SOURCE (unrecogn ized section and content) FOR RECORDS PERTAINING TO PATIENTS WHO ARE OR HAVE BEEN ENROLLED IN A CHEMICAL DEPENDENCY/SUBSTANCEABUSE PROGRAM, SOME INFORMATION MAY BE OMITTED. This clinical summary was aggregated from multiple sources. Caution should be exercised in using it in the provision of clinical care. This summary normalizes information from multiple sources, and as a consequence, information in this document may materially change the coding, format and clinical context of patient data. In addition, data may be omitted in some cases. CLINICAL DECISIONS SHOULD BE BASED ON THE PRIMARY CLINICAL RECORDS. [facility] [employer] [facility] provides no warranty or guarantee of the accuracy or completeness of information in this document.
[2023-11-16 12:25] VITALS: BP 151/86; PULSE 105; RESP 16; TEMP 36.8; O2SAT 99
== END 2023-11-16 12:27 | disposition home or self-care (01) ==
PROVIDERS: Emergency Provider Emergency Medicine; Visit Provider Emergency Medicine
DX: L03.211 Cellulitis of face (principal); E11.9 Type 2 diabetes mellitus without complications; F17.210 Nicotine dependence, cigarettes, uncomplicated; F17.290 Nicotine dependence, other tobacco product, uncomplicated; Z79.84 Long term (current) use of oral hypoglycemic drugs; Z79.899 Other long term (current) drug therapy
CPT/HCPCS: 99282

== ENCOUNTER 2024-01-29 19:28 | Emergency (ER) | payer MEDICAID, SELFPAY ==
[2024-01-29 19:30] VITALS: BP 154/104; PULSE 91; RESP 20; TEMP 36; O2SAT 100; BMI 38.5
--- NOTE | 2024-01-29 20:13 | EDS_ITS ---
HPI History of Present Illness Chief Complaint: Flank Pain Informant: patient Onset/Context/Timing Onset: Days (3) Context: Sudden Onset Timing: Continuous Quality: Sharp Location: Right flank Worsened by: Deep breathing Relieved by: Movement Narrative Narrative: Patient presents with right flank pain that has been getting worse over the past 3 days. Patient states it began rather suddenly. Patient describes his pain as sharp. Patient states it is mainly over the right flank. Patient states it is worse with deep breathing. Patient states it is better when he keeps moving. Patient states that it began when he was laying down. Patient states he tried to find a position of comfort and was unable to. Patient states that he is also under a lot of stress and going through a break-up of his fianc?e. Patient states he was recently tested for STD and was given a shot of an antibiotic earlier today. 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 Patient does admit to some dysuria but denies any urinary frequency. [facility] Medical History Type 2 diabetes mellitus PTSD (post-traumatic stress disorder) Asthma Rhabdomyolysis UTI symptoms Borderline diabetes Home Medications ?Medication ?Instructions ?Recorded ?Last Taken ?Type albuterol sulfate 90 mcg/actuation 1 - 2 puff inhalation Q4H PRN PRN 03/11/22 Unknown Rx aerosol inhaler (Ventolin HFA) Wheezing ##1 lisinopril 10 mg tablet 10 mg PO DAILY #30 tabs 03/11/22 Unknown Rx metformin 500 mg tablet 1 tablet PO DAILY 07/27/22 Unknown History fluoxetine 20 mg capsule (Prozac) 20 mg PO DAILY #30 caps 09/20/22 Unknown Rx doxycycline monohydrate 100 mg 100 mg PO BID #14 CAPSULES 12/21/22 Unknown Rx capsule clotrimazole 1 % topical cream 1 applic topical BID 10 days #30 12/29/22 Unknown Rx grams doxycycline hyclate 100 mg tablet 100 mg PO BID #20 tabs 11/16/23 Unknown Rx doxycycline hyclate 100 mg capsule 100 mg PO BID 01/29/24 Unknown History empagliflozin 25 mg tablet 25 mg PO DAILY 01/29/24 Unknown History (Jardiance) sildenafil 100 mg tablet mg PO 01/29/24 Unknown History Allergy/AdvReac Type Severity Reaction Status Date / Time sulfamethoxazole (From Allergy Mild Swelling Verified 11/16/23 12:00 Bactrim) trimethoprim (From Bactrim) Allergy Mild Swelling Verified 11/16/23 12:00 Family History Other Alcoholism Anxiety Asthma Diabetes Kidney disease Mental disorder Surgical History Hx of hernia repair Hx of tonsillectomy Social History Smoking Status: Current every day smoker tobacco type: cigarettes and cigars alcohol intake: never substance use type: does not use ROS ROS ED Constitutional Constitutional ED: Denies chills or fever(s) Eyes Eyes: Reports blurry vision; Denies diplopia ENT ENT ED: Denies rhinorrhea or sore throat Cardiovascular Cardiovascular: Denies chest pain or palpitations Respiratory/Chest Respiratory/Chest: Reports dyspnea; Denies cough Gastrointestinal Gastrointestinal: Reports abdominal pain; Denies nausea or vomiting Genitourinary Genitourinary ED: Reports dysuria; Denies hematuria Musculoskeletal Musculoskeletal: Denies back pain or neck pain Integumentary Reports rash; Denies abscess Neurologic Neurologic: Reports weakness; Denies headache(s) Allergic/Immunologic Allergic/Immunologic ED: Denies mouth swelling or urticaria EXAM Physical Exam Const Vital Signs: 01/29/24 19:30 Temperature 96.8 F L Temperature Source Temporal Pulse Rate 91 Respiratory Rate 20 H Blood Pressure 154/104 H Blood Pressure Mean 120 Pulse Ox 100 Oxygen Delivery Method Room Air Positive well nourished, well developed and obese General Appearance ED: well developed and NAD Nutritional Appearance: obese HEENT Reports moist mucous membranes Neck supple and no JVD Resp normal respiratory effort and clear to auscultation bilaterally Cardio regular rate and regular rhythm GI Palpation: soft and tender RUQ; Negative for guarding or rebound tenderness present Back/Spine General Back: CVA tenderness right Neuro oriented x3, CN's II-XII intact bilaterally and no sensory deficits noted Sensorium / Orientation: alert Motor Exam: strength 5/5 throughout Psych mental status grossly normal MDM MDM MDM Narrative Medical decision making narrative: Differential diagnosis includes ureteral calculus, pyelonephritis, appendicitis, cholecystitis, cholelithiasis, and electrolyte abnormality. CBC will be obtained to assess for leukocytosis and anemia. Basic metabolic profile will be obtained to assess for electrolyte abnormality and renal function. Urinalysis will be obtained to assess for urinary tract infection and hematuria. CT scan of the abdomen pelvis will be obtained to assess for ureteral calculus, appendicitis, cholecystitis, and cholelithiasis. Lab Data Attestation: I reviewed the patient's lab results. Lab results narrative: CBC was reviewed and was within normal limits. Basic metabolic profile will be obtained to assess for electrolyte abnormality and renal function. Urinalysis will be obtained to assess for urinary tract infection and hematuria. Labs: Laboratory Results - last 24 hr 01/29/24 20:30 WBC 7.0 RBC 4.96 Hgb 14.5 Hct 44.7 MCV 90.1 MCH 29.2 MCHC 32.4 RDW Std Deviation 43.9 RDW Coeff of Cindy 13.3 Plt Count 242 MPV 12.0 Immature Gran % (Auto) 0.300 Neut % (Auto) 40.5 L Lymph % (Auto) 45.3 H [place] % (Auto) 10.9 H Eos % (Auto) 2.4 Baso % (Auto) 0.6 Absolute Neuts (auto) 2.8 Absolute Lymphs (auto) 3.15 Nucleated RBC % 0 Sodium 138 Potassium 4.5 Chloride 103 Carbon Dioxide 29.0 Anion Gap 6 BUN 13 Creatinine 1.26 Estim Creat Clear Calc 116.65 Est GFR (MDRD) Af Amer 82 Est GFR (MDRD) Non-Af 68 BUN/Creatinine Ratio 10.3 Glucose 219 H Calcium 9.2 Urine Color Yellow Urine Clarity Clear Urine pH 8.0 Ur Specific [place] 1.015 Urine Protein Negative Urine Glucose (UA) 250 H Urine Ketones Negative Urine Occult Blood Negative Urine Nitrite Negative Urine Bilirubin Negative Urine Urobilinogen Normal Ur Leukocyte Esterase 100 H Urine RBC 0 SEEN Urine WBC 0-5 SEEN Ur Squamous Epith Cells 0-5 SEEN Urine Bacteria 0 SEEN Urine Mucus 0 SEEN Radiography Diagnostic Testing: Clinical Impression(s) from Imaging Studies Abdomen/Pelvis CT 01/29/24 20:14 IMPRESSION: 1. Small colonic diverticula are present. No evidence of acute diverticulitis. 2. No urolithiasis or hydronephrosis. 3. Mildly prominent bilateral inguinal lymph nodes are nonspecific. Electronically Signed: Dg Harris DO at 21:08 EDT , CT scan of the abdomen and pelvis was obtained. There are small colonic diverticula noted. There is no evidence of diverticulitis. There is no ureterolithiasis or hydronephrosis. There are some nonspecific inguinal lymph nodes. This was interpreted by the radiologist and was also independently reviewed by myself. Treatment and Re-Evaluation :: Patient was given IV fluids, morphine, and Zofran. Patient was advised of his findings. Smoking cessation was discussed. Patient was instructed to follow-up with his primary care physician in 5 to 7 days. Patient was instructed to take his antibiotics as prescribed. Patient was instructed to return if worse in any way. Patient understood and was agreeable with the plan. All questions were answered. Discharge Plan Triage Chief Complaint: Flank Pain ED Provider: Joseph Post Dx/Rx/DC Orders Clinical Impression: Acute right flank pain, Diabetes mellitus Instructions: ED Flank Pain, Uncertain Cause Prescriptions: No Action metformin 500 mg tablet 1 tablet PO DAILY fluoxetine [Prozac] 20 mg capsule 20 mg PO DAILY Qty: 30 2RF albuterol sulfate [Ventolin HFA] 1 INHALER inhaler 1 - 2 puff inhalation Q4H PRN PRN (Reason: Wheezing) Qty: 1 0RF lisinopril 10 mg tablet 10 mg PO DAILY Qty: 30 0RF doxycycline monohydrate 100 mg capsule 100 mg PO BID Qty: 14 0RF clotrimazole 1 % cream 1 applic topical BID 10 Days Qty: 30 0RF doxycycline hyclate 100 mg tablet 100 mg PO BID Qty: 20 0RF doxycycline hyclate 100 mg capsule 100 mg PO BID sildenafil 100 mg tablet PO Jardiance 25 mg tablet 25 mg PO DAILY Primary Care Provider: Care Physician,No Primary Referrals: Gerhard Rucker MD [Med Staff - Active Staff] - 5-7 Days Care Physician,No Primary [Primary Care Provider] - Print Language: [place] Disposition Disposition: Home, Self Care
--- NOTE | 2024-01-29 20:14 | CT_ITS ---
EXAM: CT ABDOMEN AND PELVIS WITHOUT INTRAVENOUS CONTRAST CLINICAL INDICATION: Right flank pain TECHNIQUE: Helically acquired images were obtained of the abdomen and pelvis without intravenous contrast. This CT exam was performed using one or more of the following dose reduction techniques: automated exposure control, adjustment of the mA and/or kV according to patient size, and/or use of iterative reconstruction technique. COMPARISON: No relevant prior studies available. FINDINGS: LOWER THORAX: No significant abnormality. Lung bases are clear. No cardiomegaly. No significant pericardial effusion. ABDOMEN: LIVER: No significant abnormality. Homogeneous. GALLBLADDER AND BILE DUCTS: No significant abnormality. No calcified gallstones. No gallbladder distention or wall edema. No intra- or extrahepatic biliary ductal dilation. PANCREAS: No significant abnormality. No focal cystic mass. SPLEEN: No significant abnormality. Normal size without focal cystic or solid mass. ADRENALS: No significant abnormality. No nodules. KIDNEYS AND URETERS: No significant abnormality. Normal renal size and position. No hydronephrosis. STOMACH AND BOWEL: Small colonic diverticula are present. No evidence of acute diverticulitis. No stomach or bowel distention. PELVIS: APPENDIX: A normal appendix is identified in the right lower quadrant. BLADDER: No significant abnormality. REPRODUCTIVE: Normal as visualized. No mass. ABDOMEN and PELVIS: INTRAPERITONEAL SPACE: No significant abnormality. No ascites or other fluid collection. No free air. BONES/JOINTS: No significant abnormality. No suspicious lytic or blastic abnormality. SOFT TISSUES: Small fat-containing bilateral inguinal hernias. Mild rectus diastases. VASCULATURE: No significant abnormality. Abdominal aorta is non-dilated. LYMPH NODES: Mildly prominent bilateral inguinal lymph nodes are nonspecific. CT/Abdomen/Pelvis without Cont IMPRESSION: 1. Small colonic diverticula are present. No evidence of acute diverticulitis. 2. No urolithiasis or hydronephrosis. 3. Mildly prominent bilateral inguinal lymph nodes are nonspecific. Electronically Signed: Dg Harris DO at 21:08 EDT ,
[2024-01-29 20:38] LABS: Absolute Lymphocyte Count 3.15 X10^3/uL (0.83-4.51); Absolute Neutrophil Count 2.8 X10^3/uL (2.0-7.7); Basophil# 0.04 X10^3/uL; Basophil% 0.6 % (0-1); Eosinophil# 0.17 X10^3/uL; Eosinophils% 2.4 % (0-5); Hematocrit 44.7 % (40-54); Hemoglobin 14.5 g/dL (13.0-16.5); Lymphocyte # 3.15 X10^3/ul (0.83-4.51); Lymphocyte % 45.3 % (19-41); Mean Corp Hgb Conc 32.4 g/dL (32-36); Mean Corpuscular Hgb 29.2 pg (27.0-32.0); Mean Corpuscular Volume 90.1 fL (80-94); Monocyte# 0.76 X10^3/uL; Monocyte% 10.9 % (0-10); NRBC Flagged by Analyzer 0 % (0-5); Neutrophil # 2.82 X10^3/uL (2.7-7.7); Neutrophil % 40.5 % (47-70); Platelet Count 242 K/mm3 (150-450); RBC Distribution Width CV 13.3 % (11.6-14.6); RBC Distribution Width SD 43.9 fl (35.1-43.9); Red Blood Count 4.96 M/mm3 (4.6-6.2)
[2024-01-29 20:40] LABS: Bacteria 0 SEEN /hpf (None Seen); Mucous, Urine 0 SEEN /hpf (<or=2+); Red Blood Cells-Urine 0 SEEN /hpf (0-5)
[2024-01-29 20:41] LABS: Color, Urine Yellow (Yellow); Glucose, Dipstick 250 mg/dl (Normal); Ketone-Dipstick Negative (Negative); Leukocyte Esterase-Dipstick 100 /ul (Negative); Nitrite-Dipstick Negative (Negative); Occult Blood-Urine Negative /ul (Negative); Protein-Dipstick Negative (Negative); Specific Gravity, Urine 1.015 (1.002-1.030); Urine Bilirubin Dipstick Negative (Negative); Urine Clarity Clear (Clear); Urine Urobilinogen Normal (Normal)
[2024-01-29] MEDS: Ondansetron 4 MG/2 ML Vial IV (20:46)
[2024-01-29] MEDS: Morphine 4 MG/ML Syringe IV (20:46)
[2024-01-29] MEDS: 0.9% Normal Saline (1000mL) 1,000 ML 1000 ML IV (20:46)
[2024-01-29 20:59] LABS: Squamous Epithelial Cells - UA 0-5 SEEN /hpf (0-5); White Blood Cells 0-5 SEEN /hpf (0-5)
[2024-01-29 21:09] LABS: Anion Gap 6 (5-15); BUN 13 mg/dL (7-18); BUN/Creat Ratio 10.3 RATIO (10-20); Calcium,Total 9.2 mg/dL (8.5-10.1); Chloride 103 mmol/L (98-107); Creatinine, Serum 1.26 mg/dL (0.70-1.30); EST Glomerular Filtration Rate 68 mL/min (>60); Est Glom Filt Rate - Afr Amer 82 mL/min (>60); Estimated Creatinine Clearance 116.65 ml/min; Glucose 219 mg/dL (74-106); Potassium 4.5 mmol/L (3.5-5.1); Sodium Level 138 mmol/L (136-145)
[2024-01-29 21:29] VITALS: BP 138/87; PULSE 87; RESP 18; O2SAT 100
== END 2024-01-29 22:14 | disposition home or self-care (01) ==
PROVIDERS: Emergency Provider Emergency Medicine; Visit Provider Emergency Medicine
DX: R10.9 Unspecified abdominal pain (principal); E11.9 Type 2 diabetes mellitus without complications; R30.0 Dysuria; J45.909 Unspecified asthma, uncomplicated; F17.210 Nicotine dependence, cigarettes, uncomplicated; F17.290 Nicotine dependence, other tobacco product, uncomplicated; Z79.84 Long term (current) use of oral hypoglycemic drugs; Z79.899 Other long term (current) drug therapy
CPT/HCPCS: 74176; 80048; 81001; 85025; 96361; 96374; 96375; 99283; J7030; A4216; J2405